=== PATIENT | female | born 1930 | race Caucasian/White ===

== ENCOUNTER → 2017-01-31 | Outpatient (CLI) | payer OTHER, MEDICAID ==
[2016-09-02 12:00] VITALS: BP 132/61
--- NOTE | 2017-01-31 12:20 | RAD ---
HISTORY: Leukocytosis Study: Single view of the chest. Comparison: 08/30/2016 Findings: Mild cardiomegaly. No focal consolidations, pleural effusions or pneumothorax. Osseous structures de monstrate no acute abnormality. IMPRESSION: 1. No acute cardiopulmonary process. Reported By:
== END | disposition home or self-care (01) ==
LOC: RAD 11:43
PROVIDERS: ATTEND Internal Medicine
DX: D72.828 Other elevated white blood cell count (principal)
CPT/HCPCS: 71010

== ENCOUNTER 2017-07-26 13:04 | Inpatient (IN) | payer OTHER, MEDICAID ==
[2017-07-26] MEDS ORDERED: NS 1000 ML 1,000 ML ONE (13:40)
[2017-07-26] MEDS ORDERED: NS 1000 ML 1,000 ML IV ONE (13:43)
--- NOTE | 2017-07-26 13:48 | DR.GENAD ---
HPI - PCP Primary Care Physician: RAMEZ - HPI Comment HPI Comment: SHE WAS NOT RESPONDING TO STAFF IN THE DINING ROOM. STERNAL [place], SLIGHT RESPONSE. BP CHECK AND LOW. SLEEPY IN ED. BP NOT LOW LAYING DOWN. NO FEVER. A FIB WITH CONTROL RATE ON CARDIAC MONITOE. - Complaint/Symptoms Chief Complaint Doctors Comments: HERE FROM [facility] FOR [facility]MS AND HYPOTENSION. Chief Complaint:: DECREASED RESPONSIVENESS/HYPOTENSION Self Treatment fo Chief Complaint: CHARGE NURSE ZHANNA RN, STATES PT HAD DECREASED RESPONSIVENESS WHILE IN DINING ROOM AT [facility]. STATES THEY PERFORMED STERNAL RUB ON PT AND SHE WAS SLIGHTLY AROUSED WITH EYES OPEN. ALSO STATES PT HAS A LOW BP AND DECRASED HR. - Nurses notes reviewed Nurses Notes Review: Yes - Source History Provided: Parent, [facility] - Mode of Arrival Mode of Arrival: Wheelchair - Timing Onset of Chief Complaint: 07/26/17 Came on: Suddenly - Duration Duration: Since Onset Duration: Hours - Severity Severity: Moderate PMH - PMH Past Medical History: Yes Past Medical History: Alzheimers, Anemia, Angina, Anxiety, Arthritis, CHF, COPD , Coronary Artery Disease, Dementia, Depression, Diabetes, Dyslipidemia, GERD, Hypertension Past Surgical History: Yes Surgical History: Other - Family History History of Family Medical Conditions: Yes Family Medical History: Diabetes Mellitus, Coronary Artery Disease, Heart Failure - Social History Does patient currently use any type of tobacco product: No Have you used tobacco products in the last 12 months: No Type of Tobacco Use: None Does any household member use tobacco: No Alcohol Use: None Do you use any recreational Drugs:: No Lives With: Other Lives Where: [facility] - infectious screening In the last 2 months have you had wt loss of >10#?: NO Have you had fever, night sweats or hemotysis?: No Have you traveled outside the country in the last 6 months?: No Isolation: Standard ROS - Review of Systems Constitutional: Weakness, Fatigue. negative: Chills, Fever Eyes: negative: Eye Pain, Discharge ENTM: negative: Ear Pain, Nose Discharge, Nose Congestion, Throat Pain Respiratoy: Short of Breath, Wheezing. negative: Productive Cough, Non- Productive Cough, Hemoptysis Cardiovascular: Other (IRREGULAR HEART BEAT.) Gastrointestinal/Abdominal: negative: Diarrhea, Nausea, Vomiting Genitourinary: negative: Hematuria Neurological: Weakness Musculoskeletal: Back Pain Integumentary: No Symptoms Reported Hematologic/Lymphatic: Easy Bruising Endocrine: No Symptoms Reported All Other Systems: Reviewed and Negative PE - Vital Signs Vitals: Temperature 98.0 F Pulse Rate [Apical] 63 Pulse Rate 60 Respiratory Rate 16 Blood Pressure [Left Arm] 125/60 Blood Pressure [Right Calf] 135/75 Blood Pressure [Right Arm] 132/61 Blood Pressure 117/54 O2 Sat by Pulse Oximetry 99 - General Limitations: Altered Mental Status General Appearance: Other (SLEEPY IN ED INITIALLY) - Head Head Exam: Atraumatic - Eyes Eye exam: PERRL - ENT ENT Exam: Normal External Ear Exam External Ear Exam: Normal External Inspection TM/Canal Exam: Bilateral Normal Nose Exam: Normal Nose Exam Mouth Exam: Normal Inspection Throat Exam: Normal Inspection - Neck Neck Exam: Normal Inspection - Chest Chest Inspection: Symmetric Chest Wall Rise - Respiratory Respiratory Exam: Normal Lung Sounds Bilat Respiratory Exam: Bilateral Wheezing, Bilateral Rhonchi, Upper Rhonchi, Lower Wheezing, Lower Rhonchi - Cardiovascular Cardiovascular Exam: Irregular Rhythm - Abdominal Exam Abdominal Exam: Normal Bowel Sounds, Soft. negative: Tenderness - Extremities Extremities Exam: Normal Inspection - Back Back Exam: Normal Inspection - Neurologic Neurological Exam: Alert, Other (SLEEPY IN ED BUT AROUSABLE) - Psychiatric Psychiatric Exam: Flat Affect - Skin Skin Exam: Erythema MDM - Additional Information Additional Information Obtained From: Family - Differential Diagnosis Differential Diagnosis: HYPOTENSION, AMS, HYPERKALEMIA, UTI, A FIB Course - Treatment Treatment: SEE ORDERS. - Consultation Consultation Comments: DISCUSS PATIENT WITH DR. MYRICK. HE WILL ADMIT PATIENT. - Education/Counseling Education/Counseling: Patient, Family, Education Educated On: Diagnosis ROR - Labs Reviewed Laboratory Results Reviewed?: Yes Result Diagrams: 07/27/17 05:16 07/27/17 05:16 Laboratory: WBC 12.0 X10^3/uL (3.6-10.0) H 07/26/17 13:50 RBC 4.62 X10^6/uL (3.5-5.4) 07/26/17 13:50 Hgb 12.7 g/dL (12.0-16.0) 07/26/17 13:50 Hct 38.7 % (36.0-47.0) 07/26/17 13:50 MCV 83.7 fL (80.0-100.0) 07/26/17 13:50 MCH 27.4 pg (27.0-34.0) 07/26/17 13:50 MCHC 32.8 g/dL (33.0-35.0) L 07/26/17 13:50 RDW 14.6 % (11.6-16.5) 07/26/17 13:50 Plt Count 348 X10^3/uL (150.0-450.0) 07/26/17 13:50 MPV 10.3 fL (7.4-11.0) 07/26/17 13:50 Neut % 67.7 % (42.0-75.0) 07/26/17 13:50 Lymph % 17.9 % (21.0-51.0) L 07/26/17 13:50 [place] % 5.4 % (0.0-13.0) 07/26/17 13:50 Eos % 7.9 % (0.9-2.9) H 07/26/17 13:50 Baso % 1.1 % (0.2-1.0) H 07/26/17 13:50 Neut # 8.1 x10^3/uL (2.2-4.8) H 07/26/17 13:50 Lymph # 2.1 X10^3/uL (1.3-2.9) 07/26/17 13:50 [place] # 0.6 x10^3/uL (0.3-0.8) 07/26/17 13:50 Eos # 1.0 x10^3/uL (0.0-0.2) H 07/26/17 13:50 Baso # 0.1 X10^3/uL (0.0-0.1) 07/26/17 13:50 Absolute Nucleated RBC 0.0 /100WBC 07/26/17 13:50 Sodium 139 mmol/L (136-145) 07/26/17 13:50 Corrected Sodium 140 mmol/L (136-145) 07/26/17 13:50 Potassium 5.9 mmol/L (3.5-5.1) H 07/26/17 14:40 Chloride 105 mmol/L (98-107) 07/26/17 13:50 Carbon Dioxide 24.3 mmol/L (21-32) 07/26/17 13:50 BUN 42 mg/dL (7-18) H 07/26/17 13:50 Creatinine 1.49 mg/dL (0.55-1.02) H 07/26/17 13:50 Est GFR (MDRD) Af Amer 42 (>60) L 07/26/17 13:50 Est GFR (MDRD) Non-Af 35 (>60) L 07/26/17 13:50 Glucose 121 mg/dL (65-99) H 07/26/17 13:50 Calcium 9.8 mg/dL (8.5-10.1) 07/26/17 13:50 Corrected Calcium TNP 07/26/17 13:50 Total Bilirubin 0.20 mg/dL (0.2-1.0) 07/26/17 13:50 AST 18 Units/L (15-37) 07/26/17 13:50 ALT 24 Units/L (12-78) 07/26/17 13:50 Alkaline Phosphatase 77 Units/L (46-116) 07/26/17 13:50 Creatine Kinase 40 Units/L (26-192) 07/26/17 13:50 CK-MB (CK-2) < 1.0 ng/mL (0-4.0) 07/26/17 13:50 CK/CKMB % Calc 2.5 % (<4) 07/26/17 13:50 Troponin I < 0.02 ng/mL (0-1.5) 07/26/17 13:50 Total Protein 7.5 g/dL (6.4-8.2) 07/26/17 13:50 Albumin 3.9 g/dL (3.4-5.0) 07/26/17 13:50 Globulin 3.6 g/dL (2.5-4.5) 07/26/17 13:50 Albumin/Globulin Ratio 1.1 Ratio (1.1-2.1) 07/26/17 13:50 Specimen Type Catherized urine 07/26/17 15:10 Urine Color Yellow (YELLOW) 07/26/17 15:10 Urine Appearance Cloudy (CLEAR) 07/26/17 15:10 Urine pH 6.0 (5.0 - 8.0) 07/26/17 15:10 Ur Specific [place] 1.015 (1.000-1.030) 07/26/17 15:10 Urine Protein 2+ (NEGATIVE) 07/26/17 15:10 Urine Glucose (UA) Negative (NEGATIVE) 07/26/17 15:10 Urine Ketones Negative (NEGATIVE) 07/26/17 15:10 Urine Occult Blood 1+ (NEGATIVE) 07/26/17 15:10 Urine Nitrite Negative (NEGATIVE) 07/26/17 15:10 Urine Bilirubin Negative (NEGATIVE) 07/26/17 15:10 Urine Urobilinogen Normal (NORMAL) 07/26/17 15:10 Ur Leukocyte Esterase 3+ (NEGATIVE) 07/26/17 15:10 Urine RBC Rare /HPF (NEGATIVE) 07/26/17 15:10 Urine WBC 60 - 80 /HPF (NEGATIVE) 07/26/17 15:10 Ur Squamous Epith Cells Many /HPF (NEGATIVE) 07/26/17 15:10 Amorphous Sediment 1+ /HPF (NEGATIVE) 07/26/17 15:10 Urine Bacteria Negative /HPF (NEGATIVE) 07/26/17 15:10 Hyaline Casts Few /LPF (NEGATIVE) 07/26/17 15:10 Urine Mucus Moderate /HPF (NEGATIVE) 07/26/17 15:10 Ur Culture Indicated? Yes/culture set up 07/26/17 15:10 - XRAY XRAY Interpreted by: Radiologist XRAY Findings: REPORT DISCUSS WITH PATIENT AND FAMILY. - EKG Rhythm: Afib (EKG NOTED) - Diagnosis Discharge Problem: Hyperkalemia Hypotension Qualifiers: Hypotension type: unspecified hypotension type Qualified Code(s): I95.9 - Hypotension, unspecified UTI (urinary tract infection) Qualifiers: Urinary tract infection type: site unspecified Hematuria presence: without hematuria Qualified Code(s): N39.0 - Urinary tract infection, site not specified Mental status alteration Qualifiers: Altered mental status type: transient alteration of awareness Qualified Code(s) : R40.4 - Transient alteration of awareness A-fib Qualifiers: Atrial fibrillation type: chronic Qualified Code(s): I48.2 - Chronic atrial fibrillation - Discharge Plan Disposition: 09 ADMITTED INPATIENT Condition: Stable - Follow ups/Referrals - Instructions
[2017-07-26 14:14] LABS: BASOPHILS # (AUTO) 0.1 X10^3/uL (0.0-0.1); BASOPHILS % (AUTO) 1.1 % (0.2-1.0); EOSINOPHILS % (AUTO) 7.9 % (0.9-2.9); HEMATOCRIT 38.7 % (36.0-47.0); HEMOGLOBIN 12.7 g/dL (12.0-16.0); LYMPHOCYTES # (AUTO) 2.1 X10^3/uL (1.3-2.9); LYMPHOCYTES % (AUTO) 17.9 % (21.0-51.0); MEAN CORPUSCULAR HEMOGLOBIN 27.4 pg (27.0-34.0); MEAN CORPUSCULAR HGB CONC 32.8 g/dL (33.0-35.0); MEAN CORPUSCULAR VOLUME 83.7 fL (80.0-100.0); MEAN PLATELET VOLUME 10.3 fL (7.4-11.0); MONOCYTES # (AUTO) 0.6 x10^3/uL (0.3-0.8); MONOCYTES % (AUTO) 5.4 % (0.0-13.0); NEUTROPHILS # (AUTO) 8.1 x10^3/uL (2.2-4.8); NEUTROPHILS % (AUTO) 67.7 % (42.0-75.0); PLATELET COUNT 348 X10^3/uL (150.0-450.0); RED BLOOD COUNT 4.62 X10^6/uL (3.5-5.4); RED CELL DISTRIBUTION WIDTH 14.6 % (11.6-16.5)
[2017-07-26] MEDS: NS 1000 ML 1,000 ML IV SCH (14:14)
--- NOTE | 2017-07-26 14:15 | RAD ---
Examination: Portable AP chest History: SOB, diabetes and hypertension Comparison reference 01/31/2017 Findings: Continued normal heart size with arteriosclerotic aorta and stable position of twin lead ca rdiac pacemaker. Interval increase in pulmonary vascular congestion, some of which may be related to the mobile technique. There is no evidence for pneumonia, pulmonary edema or pneumothorax. Impression: Pulmonary vascular congestion, see above. Reported By:
[2017-07-26 14:32] LABS: BLOOD UREA NITROGEN 42 mg/dL (7-18); CALCIUM 9.8 mg/dL (8.5-10.1); CARBON DIOXIDE 24.3 mmol/L (21-32); CHLORIDE 105 mmol/L (98-107); COR NA(FOR HYPERGLY) 140 mmol/L (136-145); CREATININE 1.49 mg/dL (0.55-1.02); SODIUM 139 mmol/L (136-145); eGFR BLACK RACES 42 (>60); eGFR NON BLACK RACES 35 (>60)
[2017-07-26 14:36] LABS: ALANINE AMINOTRANSFERASE 24 Units/L (12-78); ALBUMIN 3.9 g/dL (3.4-5.0); ALKALINE PHOSPHATASE 77 Units/L (46-116); ASPARTATE AMINO TRANSFERASE 18 Units/L (15-37); TOTAL PROTEIN 7.5 g/dL (6.4-8.2)
[2017-07-26 14:46] LABS: CREATINE KINASE 40 Units/L (26-192); CREATINE KINASE MB < 1.0 ng/mL (0-4.0); TROPONIN I < 0.02 ng/mL (0-1.5)
--- NOTE | 2017-07-26 14:49 | CT ---
HISTORY: Decreased responsiveness, hypotension. Study: CT brain without contrast Comparison: Head CT dated 08/25/2016 Technique: Multiple axial images of the brain were obtained from the skull base to the vertex without administra tion of IV contrast. Automated exposure control (AEC) was utilized to adjust the MA and/or kV accordi ng to patient size. Findings: There is no acute intracranial hemorrhage. 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 No mass or mass effect. No abnormal extra-axial flui d collection. There is a generalized prominence of the ventricle sulci cisterns consistent with advanced generalize d volume loss. Green matter -white matter interface is distinct. There is an air-fluid level within the left sphenoid chambers concerning for acute sinusitis in the a ppropriate clinical setting. There is no acute osseous abnormality. IMPRESSION: 1. No acute intracranial process can be identified. Chronic appearing white matter changes are noted as discussed above. If there is clinical concern for acute ischemia, further evaluation with MRI of the brain would be recommended, if not contraindicated. 2. Generalized volume loss.. 3. Air-fluid level within the left sphenoid chamber which is concerning for acute sinusitis in the ap propriate clinical setting. Reported By:
[2017-07-26 14:50] LABS: CKMB % 2.5 % (<4)
[2017-07-26] MEDS ORDERED: HumuLIN R IV ONE (15:09)
[2017-07-26 15:18] LABS: BILIRUBIN,URINE NEGATIVE (NEGATIVE); BLOOD/HEMOGLOBIN,URINE 1+ (NEGATIVE); GLUCOSE, URINE NEGATIVE (NEGATIVE); KETONES,URINE NEGATIVE (NEGATIVE); LEUKOCYTE ESTERASE ,URINE 3+ (NEGATIVE); NITRITES,URINE NEGATIVE (NEGATIVE); PROTEIN,URINE 2+ (NEGATIVE); UROBILINOGEN,URINE NORMAL (NORMAL)
[2017-07-26] MEDS ORDERED: D50W ABBOJECT SYR IV ONE (15:46)
[2017-07-26 15:47] LABS: APPEARANCE,URINE CLOUDY (CLEAR); COLOR,URINE YELLOW (YELLOW); RBC,URINE RARE /HPF (NEGATIVE); SQUAMOUS EPITHELIAL CELL,UR MANY /HPF (NEGATIVE)
[2017-07-26 15:48] LABS: AMORPHOUS SEDIMENT,UR 1+ /HPF (NEGATIVE); BACTERIA,URINE NEGATIVE /HPF (NEGATIVE); HYALINE CASTS, URINE FEW /LPF (NEGATIVE)
[2017-07-26 15:49] LABS: MUCUS,URINE MODERATE /HPF (NEGATIVE)
[2017-07-26] MEDS ORDERED: D50W ABBOJECT SYR ONE (15:54)
[2017-07-26] MEDS ORDERED: ROCEPHIN VIAL 1 GM 1 GM in NS 100 ML IV + SPIKE MINIBAG* 100 ML IV ONE (16:20)
[2017-07-26 17:51] VITALS: BMI 21.1
[2017-07-26] MEDS: SNACK - Diabetic Appropriate PO SCH (21:35)
[2017-07-26 23:07] LABS: CKMB % 2.5 % (<4); CREATINE KINASE 40 Units/L (26-192); CREATINE KINASE MB < 1.0 ng/mL (0-4.0); TROPONIN I < 0.02 ng/mL (0-1.5)
[2017-07-27 06:06] LABS: CKMB % 2.3 % (<4); CREATINE KINASE 43 Units/L (26-192); CREATINE KINASE MB < 1.0 ng/mL (0-4.0); TROPONIN I < 0.02 ng/mL (0-1.5)
[2017-07-27 06:07] LABS: BASOPHILS # (AUTO) 0.1 X10^3/uL (0.0-0.1); EOSINOPHILS % (AUTO) 10.3 % (0.9-2.9); HEMATOCRIT 37.5 % (36.0-47.0); HEMOGLOBIN 12.8 g/dL (12.0-16.0); LYMPHOCYTES # (AUTO) 2.7 X10^3/uL (1.3-2.9); LYMPHOCYTES % (AUTO) 27.5 % (21.0-51.0); MEAN CORPUSCULAR HEMOGLOBIN 28.2 pg (27.0-34.0); MEAN CORPUSCULAR HGB CONC 34.2 g/dL (33.0-35.0); MEAN CORPUSCULAR VOLUME 82.4 fL (80.0-100.0); MEAN PLATELET VOLUME 10.3 fL (7.4-11.0); MONOCYTES # (AUTO) 0.6 x10^3/uL (0.3-0.8); MONOCYTES % (AUTO) 6.3 % (0.0-13.0); NEUTROPHILS # (AUTO) 5.4 x10^3/uL (2.2-4.8); NEUTROPHILS % (AUTO) 54.9 % (42.0-75.0); PLATELET COUNT 299 X10^3/uL (150.0-450.0); RED BLOOD COUNT 4.54 X10^6/uL (3.5-5.4); RED CELL DISTRIBUTION WIDTH 14.2 % (11.6-16.5); WHITE BLOOD COUNT 9.8 X10^3/uL (3.6-10.0)
[2017-07-27 06:24] LABS: ALANINE AMINOTRANSFERASE 23 Units/L (12-78); ALBUMIN 3.7 g/dL (3.4-5.0); ALKALINE PHOSPHATASE 76 Units/L (46-116); ASPARTATE AMINO TRANSFERASE 19 Units/L (15-37); BLOOD UREA NITROGEN 36 mg/dL (7-18); CALCIUM 9.6 mg/dL (8.5-10.1); CHLORIDE 107 mmol/L (98-107); COR NA(FOR HYPERGLY) 142 mmol/L (136-145); CREATININE 1.16 mg/dL (0.55-1.02); MAGNESIUM 2.2 mg/dL (1.7-2.9); SODIUM 142 mmol/L (136-145); TOTAL PROTEIN 7.3 g/dL (6.4-8.2); eGFR BLACK RACES 57 (>60); eGFR NON BLACK RACES 47 (>60)
[2017-07-27] MEDS: NS 1000 ML 1,000 ML IV SCH (06:27)
[2017-07-27] MEDS ORDERED: ELIMITE TOPICAL CREAM TOP NR (14:00)
[2017-07-27] MEDS ORDERED: K-DUR TAB 20 MEQ PO SCH (14:00)
[2017-07-27] MEDS: LIPITOR TAB 10 MG PO SCH (18:14)
[2017-07-27] MEDS: TRICOR TAB 48 MG PO SCH ×2 (18:16→22:21)
[2017-07-27] MEDS: ASPIRIN EC 81 MG PO SCH (18:16)
[2017-07-27] MEDS: CARDIZEM TAB 30 MG PLAIN PO SCH ×2 (18:16→22:22)
[2017-07-27] MEDS: GLUCOPHAGE PO SCH ×2 (18:16→18:20)
[2017-07-27] MEDS: LANOXIN PO SCH (18:17)
[2017-07-27] MEDS: NORCO 5/325 MG TAB PO SCH ×2 (18:18→23:27)
[2017-07-27] MEDS: POTASSIUM CHLORIDE LIQ 20 MEQ UDC PO SCH (18:22)
[2017-07-27] MEDS ORDERED: BENADRYL CAP/TAB 25 MG PO PRN (18:45)
[2017-07-27] MEDS ORDERED: SNACK - Diabetic Appropriate PO SCH (20:00)
[2017-07-27] MEDS ORDERED: KENALOG CREAM EXT SCH (21:00)
[2017-07-27] MEDS: MIRALAX POWDER (1 DOSE 17GM) PO SCH ×2 (21:45→22:19)
[2017-07-27] MEDS: SNACK - Diabetic Appropriate PO SCH (22:11)
[2017-07-27] MEDS: COLACE SYRUP 100 MG UDC PO SCH (22:13)
[2017-07-27] MEDS: HEMOCYTE-PLUS PO SCH (22:14)
[2017-07-27] MEDS: LEVEMIR SC SCH (22:18)
[2017-07-27] MEDS: PEPCID TAB 20 MG PO SCH (22:20)
[2017-07-27] MEDS: TEMOVATE CREAM EXT SCH (22:21)
[2017-07-27] MEDS: ZESTRIL TAB 5 MG PO SCH (22:22)
[2017-07-28] MEDS ORDERED: COLACE CAP 100 MG PO SCH (05:00)
[2017-07-28] MEDS: MILK OF MAGNESIA PO SCH ×2 (05:30→22:29)
[2017-07-28] MEDS: GLUCOPHAGE PO SCH ×2 (06:26→20:09)
[2017-07-28] MEDS: CARDIZEM TAB 30 MG PLAIN PO SCH ×3 (06:26→22:29)
[2017-07-28 06:27] LABS: BASOPHILS # (AUTO) 0.1 X10^3/uL (0.0-0.1); BASOPHILS % (AUTO) 1.1 % (0.2-1.0); EOSINOPHILS # (AUTO) 1.3 x10^3/uL (0.0-0.2); EOSINOPHILS % (AUTO) 14.7 % (0.9-2.9); HEMATOCRIT 36.1 % (36.0-47.0); HEMOGLOBIN 12.2 g/dL (12.0-16.0); LYMPHOCYTES # (AUTO) 3.5 X10^3/uL (1.3-2.9); LYMPHOCYTES % (AUTO) 37.7 % (21.0-51.0); MEAN CORPUSCULAR HEMOGLOBIN 28.4 pg (27.0-34.0); MEAN CORPUSCULAR HGB CONC 33.9 g/dL (33.0-35.0); MEAN CORPUSCULAR VOLUME 83.5 fL (80.0-100.0); MEAN PLATELET VOLUME 10.4 fL (7.4-11.0); MONOCYTES # (AUTO) 0.7 x10^3/uL (0.3-0.8); MONOCYTES % (AUTO) 7.1 % (0.0-13.0); NEUTROPHILS # (AUTO) 3.6 x10^3/uL (2.2-4.8); NEUTROPHILS % (AUTO) 39.4 % (42.0-75.0); PLATELET COUNT 305 X10^3/uL (150.0-450.0); RED BLOOD COUNT 4.32 X10^6/uL (3.5-5.4); WHITE BLOOD COUNT 9.2 X10^3/uL (3.6-10.0)
[2017-07-28 06:28] LABS: ALANINE AMINOTRANSFERASE 22 Units/L (12-78); ALBUMIN 3.4 g/dL (3.4-5.0); ALKALINE PHOSPHATASE 68 Units/L (46-116); ASPARTATE AMINO TRANSFERASE 18 Units/L (15-37); BLOOD UREA NITROGEN 32 mg/dL (7-18); CARBON DIOXIDE 25.5 mmol/L (21-32); CHLORIDE 108 mmol/L (98-107); CREATININE 1.42 mg/dL (0.55-1.02); SODIUM 142 mmol/L (136-145); TOTAL PROTEIN 6.6 g/dL (6.4-8.2); eGFR BLACK RACES 45 (>60); eGFR NON BLACK RACES 37 (>60)
[2017-07-28] MEDS: NORCO 5/325 MG TAB PO SCH ×4 (06:32→22:30)
[2017-07-28] MEDS: NS 1000 ML 1,000 ML IV SCH (07:12)
[2017-07-28] MEDS: HEMOCYTE-PLUS PO SCH ×2 (10:15→22:30)
[2017-07-28] MEDS: LIPITOR TAB 10 MG PO SCH (10:15)
[2017-07-28] MEDS: DEMADEX PO SCH (10:15)
[2017-07-28] MEDS: XARELTO PO SCH (10:15)
[2017-07-28] MEDS: PEPCID TAB 20 MG PO SCH ×2 (10:15→22:31)
[2017-07-28] MEDS: COLACE SYRUP 100 MG UDC PO SCH ×2 (10:16→22:30)
[2017-07-28] MEDS: POTASSIUM CHLORIDE LIQ 20 MEQ UDC PO SCH (10:16)
[2017-07-28] MEDS: ZESTRIL TAB 5 MG PO SCH ×2 (10:16→22:29)
[2017-07-28] MEDS: MIRALAX POWDER (1 DOSE 17GM) PO SCH ×2 (10:18→22:30)
[2017-07-28] MEDS: LEVEMIR SC SCH ×2 (10:18→22:31)
[2017-07-28] MEDS: ASPIRIN EC 81 MG PO SCH (10:19)
[2017-07-28] MEDS: NIZORAL SHAMPOO TOP SCH ×2 (10:19→23:22)
[2017-07-28] MEDS: TEMOVATE CREAM EXT SCH ×2 (10:19→22:32)
[2017-07-28] MEDS: LANOXIN PO SCH (10:20)
[2017-07-28] MEDS: TRICOR TAB 48 MG PO SCH (22:29)
[2017-07-28] MEDS: SNACK - Diabetic Appropriate PO SCH (22:32)
[2017-07-29] MEDS: NS 1000 ML 1,000 ML IV SCH (02:54)
[2017-07-29] MEDS: NORCO 5/325 MG TAB PO SCH (06:09)
[2017-07-29] MEDS: CARDIZEM TAB 30 MG PLAIN PO SCH (06:09)
[2017-07-29 06:29] LABS: BASOPHILS # (AUTO) 0.1 X10^3/uL (0.0-0.1); BASOPHILS % (AUTO) 0.6 % (0.2-1.0); EOSINOPHILS # (AUTO) 1.5 x10^3/uL (0.0-0.2); EOSINOPHILS % (AUTO) 17.1 % (0.9-2.9); HEMATOCRIT 34.9 % (36.0-47.0); LYMPHOCYTES # (AUTO) 3.2 X10^3/uL (1.3-2.9); LYMPHOCYTES % (AUTO) 35.8 % (21.0-51.0); MEAN CORPUSCULAR HEMOGLOBIN 28.7 pg (27.0-34.0); MEAN CORPUSCULAR HGB CONC 34.4 g/dL (33.0-35.0); MEAN CORPUSCULAR VOLUME 83.5 fL (80.0-100.0); MEAN PLATELET VOLUME 10.5 fL (7.4-11.0); MONOCYTES # (AUTO) 0.7 x10^3/uL (0.3-0.8); MONOCYTES % (AUTO) 7.4 % (0.0-13.0); NEUTROPHILS # (AUTO) 3.5 x10^3/uL (2.2-4.8); NEUTROPHILS % (AUTO) 39.1 % (42.0-75.0); PLATELET COUNT 286 X10^3/uL (150.0-450.0); RED BLOOD COUNT 4.18 X10^6/uL (3.5-5.4); RED CELL DISTRIBUTION WIDTH 13.9 % (11.6-16.5); WHITE BLOOD COUNT 8.8 X10^3/uL (3.6-10.0)
[2017-07-29 06:56] LABS: ALBUMIN 3.3 g/dL (3.4-5.0); CALCIUM 9.4 mg/dL (8.5-10.1); CARBON DIOXIDE 24.1 mmol/L (21-32); CREATININE 1.11 mg/dL (0.55-1.02); TOTAL PROTEIN 6.5 g/dL (6.4-8.2)
[2017-07-29] MEDS: GLUCOPHAGE PO SCH (09:12)
[2017-07-29] MEDS: ASPIRIN EC 81 MG PO SCH (09:12)
[2017-07-29] MEDS: COLACE SYRUP 100 MG UDC PO SCH (09:12)
[2017-07-29] MEDS: PEPCID TAB 20 MG PO SCH (09:13)
[2017-07-29] MEDS: DEMADEX PO SCH (09:13)
[2017-07-29] MEDS: HEMOCYTE-PLUS PO SCH (09:13)
[2017-07-29] MEDS: LANOXIN PO SCH (09:15)
[2017-07-29] MEDS: LEVEMIR SC SCH (09:15)
[2017-07-29] MEDS: POTASSIUM CHLORIDE LIQ 20 MEQ UDC PO SCH (09:19)
[2017-07-29] MEDS: LIPITOR TAB 10 MG PO SCH (09:19)
[2017-07-29] MEDS: MIRALAX POWDER (1 DOSE 17GM) PO SCH (09:19)
[2017-07-29] MEDS: ZESTRIL TAB 5 MG PO SCH (09:20)
[2017-07-29] MEDS: TEMOVATE CREAM EXT SCH (09:20)
[2017-07-29] MEDS: XARELTO PO SCH (09:20)
[2017-07-29 12:22] VITALS: BP 124/62
[2017-07-30] MEDS ORDERED: DIFLUCAN PO ONE (14:00)
== END 2017-07-29 12:25 | DRG 315 ==
LOC: ER 14:41 → MED/SURG 16:21
PROVIDERS: ADMIT Internal Medicine; ATTEND Internal Medicine
DX: I95.89 Other hypotension (principal); R41.82 Altered mental status, unspecified; N39.0 Urinary tract infection, site not specified; I48.2 Chronic atrial fibrillation; E87.5 Hyperkalemia; J44.9 Chronic obstructive pulmonary disease, unspecified; I25.10 Atherosclerotic heart disease of native coronary artery without angina pectoris; E11.65 Type 2 diabetes mellitus with hyperglycemia; E78.2 Mixed hyperlipidemia; K21.9 Gastro-esophageal reflux disease without esophagitis; I10 Essential (primary) hypertension; R06.02 Shortness of breath; R94.31 Abnormal electrocardiogram [ECG] [EKG]; E86.0 Dehydration; B86 Scabies
CPT/HCPCS: 36415; 70450; 71010; 80053; 80162; 81001; 82550; 82553; 83735; 84132; 84484; 85025; 87086; 93005; 93010; 94760; 96365; 96367; 96374; 96375; 99221; 99231; 99284; A4216; A4222; 1956; J3490

== ENCOUNTER 2017-09-13 13:17 | Emergency (ER) | payer OTHER, MEDICAID ==
[2017-09-13] MEDS ORDERED: NS 1000 ML 1,000 ML IV ONE (13:30)
[2017-09-13] MEDS ORDERED: ZOFRAN INJ 4 MG VIAL IVP ONE (13:30)
--- NOTE | 2017-09-13 13:30 | DR.GENAD ---
HPI - HPI Comment HPI Comment: [place] [facility] [place] [facility] [place]IENT WAS NOTED TOHAVE SYNCOPAL EPISODE WHILE IN HER WHEELCHAIR AND HAVE HAD AMS SINCE. BP LOW IN ED. - Complaint/Symptoms Chief Complaint Doctors Comments: AMS, - Nurses notes reviewed Nurses Notes Review: Yes - Source History Provided: Patient - Mode of Arrival Mode of Arrival: Stretcher - Timing Came on: Suddenly - Duration Duration: Constant Duration: Days - Severity Severity: Moderate PMH - PMH Past Medical History: Alzheimers, Anemia, Angina, Anxiety, Arthritis, CHF, COPD , Coronary Artery Disease, Dementia, Depression, Diabetes, Dyslipidemia, GERD, Hypertension Past Surgical History: Yes Surgical History: Other - Family History Family Medical History: Diabetes Mellitus, Coronary Artery Disease, Heart Failure - Social History Do you use any recreational Drugs:: No ROS - Review of Systems Constitutional: Weakness, Fatigue. negative: Chills, Fever Eyes: No Symptoms Reported. negative: Eye Pain, Discharge ENTM: No Symptoms Reported. negative: Ear Pain, Nose Discharge, Nose Congestion Respiratoy: Short of Breath. negative: Productive Cough, Non-Productive Cough, Wheezing, Hemoptysis Cardiovascular: Chest Pain. negative: Edema Gastrointestinal/Abdominal: negative: Diarrhea, Nausea, Vomiting Genitourinary: negative: Hematuria Neurological: Weakness Musculoskeletal: Muscle Pain Integumentary: No Symptoms Reported Hematologic/Lymphatic: No Symptoms Reported Endocrine: No Symptoms Reported All Other Systems: Reviewed and Negative PE - Vital Signs Vitals: Temperature 98.9 F Pulse Rate [Left Brachial] 62 Pulse Rate 60 Respiratory Rate 16 Blood Pressure [Left Arm] 144/61 Blood Pressure [Right Calf] 135/75 Blood Pressure [Right Arm] 144/60 Blood Pressure 63/36 O2 Sat by Pulse Oximetry 99 - General Limitations: No Limitations General Appearance: Other (SLEEPY BUT AROUSABLE) - Head Head Exam: Normal Inspection - Eyes Eye exam: Normal Appearance, PERRL. negative: Scleral Icterus, Conjunctival Injection - ENT ENT Exam: Normal External Ear Exam External Ear Exam: Normal External Inspection TM/Canal Exam: Bilateral Normal Nose Exam: Normal Nose Exam Mouth Exam: Normal Inspection Throat Exam: Normal Inspection - Neck Neck Exam: Trachea Midline - Chest Chest Inspection: Symmetric Chest Wall Rise - Respiratory Respiratory Exam: Normal Lung Sounds Bilat Respiratory Exam: Bilateral Clear to Auscultation - Cardiovascular Cardiovascular Exam: Regular Rate, Normal Rhythm, Normal Heart Sounds - Abdominal Exam Abdominal Exam: Normal Bowel Sounds, Soft. negative: Tenderness - Extremities Extremities Exam: Normal Inspection. negative: Calf Tenderness - Back Back Exam: Normal Inspection - Neurologic Neurological Exam: Alert, Oriented X3 - Psychiatric Psychiatric Exam: Normal Affect, Normal Mood - Skin Skin Exam: Normal Color MDM - Differential Diagnosis Differential Diagnosis: HYPOTENSION, SYNCOPAL EPISODE. Course - Treatment Treatment: SEE ORDERS. IV FLUID IN ED. PRESURE IMPROVING. PATIENT MORE RESPONSIVE. - Education/Counseling Education/Counseling: Patient, Education Educated On: Diagnosis ROR - Labs Reviewed Laboratory Results Reviewed?: Yes Result Diagrams: 09/13/17 13:48 09/13/17 13:48 Laboratory: WBC 11.4 X10^3/uL (3.6-10.0) H 09/13/17 13:48 RBC 4.16 X10^6/uL (3.5-5.4) 09/13/17 13:48 Hgb 11.8 g/dL (12.0-16.0) L 09/13/17 13:48 Hct 34.7 % (36.0-47.0) L 09/13/17 13:48 MCV 83.3 fL (80.0-100.0) 09/13/17 13:48 MCH 28.4 pg (27.0-34.0) 09/13/17 13:48 MCHC 34.1 g/dL (33.0-35.0) 09/13/17 13:48 RDW 13.9 % (11.6-16.5) 09/13/17 13:48 Plt Count 350 X10^3/uL (150.0-450.0) 09/13/17 13:48 MPV 10.1 fL (7.4-11.0) 09/13/17 13:48 Neut % 44.7 % (42.0-75.0) 09/13/17 13:48 Lymph % 38.2 % (21.0-51.0) 09/13/17 13:48 [place] % 6.4 % (0.0-13.0) 09/13/17 13:48 Eos % 9.9 % (0.9-2.9) H 09/13/17 13:48 Baso % 0.8 % (0.2-1.0) 09/13/17 13:48 Neut # 5.1 x10^3/uL (2.2-4.8) H 09/13/17 13:48 Lymph # 4.4 X10^3/uL (1.3-2.9) H 09/13/17 13:48 [place] # 0.7 x10^3/uL (0.3-0.8) 09/13/17 13:48 Eos # 1.1 x10^3/uL (0.0-0.2) H 09/13/17 13:48 Baso # 0.1 X10^3/uL (0.0-0.1) 09/13/17 13:48 Absolute Nucleated RBC 0.1 /100WBC 09/13/17 13:48 Sodium 140 mmol/L (136-145) 09/13/17 13:48 Corrected Sodium 143 mmol/L (136-145) 09/13/17 13:48 Potassium 5.4 mmol/L (3.5-5.1) H 09/13/17 13:48 Chloride 107 mmol/L (98-107) 09/13/17 13:48 Carbon Dioxide 23.6 mmol/L (21-32) 09/13/17 13:48 BUN 36 mg/dL (7-18) H 09/13/17 13:48 Creatinine 1.25 mg/dL (0.55-1.02) H 09/13/17 13:48 Est GFR (MDRD) Af Amer 52 (>60) L 09/13/17 13:48 Est GFR (MDRD) Non-Af 43 (>60) L 09/13/17 13:48 Glucose 241 mg/dL (65-99) H 09/13/17 13:48 Lactic Acid 1.3 mmol/L (0.4-2.0) 09/13/17 13:48 Calcium 9.6 mg/dL (8.5-10.1) 09/13/17 13:48 Corrected Calcium TNP 09/13/17 13:48 Total Bilirubin 0.20 mg/dL (0.2-1.0) 09/13/17 13:48 AST 19 Units/L (15-37) 09/13/17 13:48 ALT 20 Units/L (12-78) 09/13/17 13:48 Alkaline Phosphatase 63 Units/L (46-116) 09/13/17 13:48 Creatine Kinase 35 Units/L (26-192) 09/13/17 13:48 CK-MB (CK-2) < 1.0 ng/mL (0-4.0) 09/13/17 13:48 CK/CKMB % Calc 2.9 % (<4) 09/13/17 13:48 Troponin I < 0.02 ng/mL (0-1.5) 09/13/17 13:48 Total Protein 7.2 g/dL (6.4-8.2) 09/13/17 13:48 Albumin 3.6 g/dL (3.4-5.0) 09/13/17 13:48 Globulin 3.6 g/dL (2.5-4.5) 09/13/17 13:48 Albumin/Globulin Ratio 1.0 Ratio (1.1-2.1) L 09/13/17 13:48 Specimen Type Catherized urine 09/13/17 16:02 Urine Color Yellow (YELLOW) 09/13/17 16:02 Urine Appearance Slightly hazy (CLEAR) 09/13/17 16:02 Urine pH 5.0 (5.0 - 8.0) 09/13/17 16:02 Ur Specific [place] 1.015 (1.000-1.030) 09/13/17 16:02 Urine Protein 1+ (NEGATIVE) 09/13/17 16:02 Urine Glucose (UA) Negative (NEGATIVE) 09/13/17 16:02 Urine Ketones Negative (NEGATIVE) 09/13/17 16:02 Urine Occult Blood 1+ (NEGATIVE) 09/13/17 16:02 Urine Nitrite Negative (NEGATIVE) 09/13/17 16:02 Urine Bilirubin Negative (NEGATIVE) 09/13/17 16:02 Urine Urobilinogen Normal (NORMAL) 09/13/17 16:02 Ur Leukocyte Esterase 2+ (NEGATIVE) 09/13/17 16:02 Urine RBC 0-3 /HPF (NEGATIVE) 09/13/17 16:02 Urine WBC 5-10 /HPF (NEGATIVE) 09/13/17 16:02 Ur Squamous Epith Cells Few /HPF (NEGATIVE) 09/13/17 16:02 Amorphous Sediment 1+ /HPF (NEGATIVE) 09/13/17 16:02 Urine Bacteria Trace /HPF (NEGATIVE) 09/13/17 16:02 Fine Granular Casts Few /LPF (NEGATIVE) 09/13/17 16:02 Urine Mucus Few /HPF (NEGATIVE) 09/13/17 16:02 Ur Culture Indicated? Yes/culture set up 09/13/17 16:02 Acetone, Semi-Quant Negative (NEGATIVE) 09/13/17 13:48 - XRAY XRAY Interpreted by: Radiologist XRAY Findings: REPORT NOTED - EKG Rhythm: Paced (EKG NOTED) - Diagnosis Discharge Problem: Hypotension Qualifiers: Hypotension type: unspecified hypotension type Qualified Code(s): I95.9 - Hypotension, unspecified Episode of syncope Qualifiers: Syncope type: unspecified Qualified Code(s): R55 - Syncope and collapse Altered mental state Qualifiers: Altered mental status type: transient alteration of awareness Qualified Code(s) : R40.4 - Transient alteration of awareness - Discharge Plan Disposition: 01 HOME, SELF-CARE Condition: Stable Prescriptions: Levofloxacin [LEVAQUIN TAB 500 MG *] 500 mg PO DAILY #7 tab - Follow ups/Referrals Follow ups/Referrals: STALIN THOMASON [Primary Care Provider] - 3 days - Instructions Instructions: Concussion, Adult, [id number], Hypotension, [id number], Urinary Tract Infection, Adult, [id number] Additional Instructions: RETURN TO ED IF WORSE. HOLD DILTIAZINE AND LISINOPRIL FOR 24 HRS. [employer].
[2017-09-13] MEDS ORDERED: NS 1000 ML 1,000 ML ONE (13:31)
[2017-09-13] MEDS ORDERED: ZOFRAN INJ 4 MG VIAL ONE (13:31)
[2017-09-13 13:44] VITALS: BMI 25.8
[2017-09-13 14:01] LABS: BASOPHILS # (AUTO) 0.1 X10^3/uL (0.0-0.1); BASOPHILS % (AUTO) 0.8 % (0.2-1.0); EOSINOPHILS # (AUTO) 1.1 x10^3/uL (0.0-0.2); EOSINOPHILS % (AUTO) 9.9 % (0.9-2.9); HEMATOCRIT 34.7 % (36.0-47.0); HEMOGLOBIN 11.8 g/dL (12.0-16.0); LYMPHOCYTES # (AUTO) 4.4 X10^3/uL (1.3-2.9); LYMPHOCYTES % (AUTO) 38.2 % (21.0-51.0); MEAN CORPUSCULAR HEMOGLOBIN 28.4 pg (27.0-34.0); MEAN CORPUSCULAR HGB CONC 34.1 g/dL (33.0-35.0); MEAN CORPUSCULAR VOLUME 83.3 fL (80.0-100.0); MEAN PLATELET VOLUME 10.1 fL (7.4-11.0); MONOCYTES # (AUTO) 0.7 x10^3/uL (0.3-0.8); MONOCYTES % (AUTO) 6.4 % (0.0-13.0); NEUTROPHILS # (AUTO) 5.1 x10^3/uL (2.2-4.8); NEUTROPHILS % (AUTO) 44.7 % (42.0-75.0); PLATELET COUNT 350 X10^3/uL (150.0-450.0); RED BLOOD COUNT 4.16 X10^6/uL (3.5-5.4); RED CELL DISTRIBUTION WIDTH 13.9 % (11.6-16.5); WHITE BLOOD COUNT 11.4 X10^3/uL (3.6-10.0)
--- NOTE | 2017-09-13 14:19 | RAD ---
Examination: Portable AP chest History: Hypoxia and low blood pressure Comparison 07/26/2017 Findings: Continued upper normal heart size with stable position of pacemaker. The lungs and pleural spaces are clear. Impression: No acute chest findings. Reported By:
[2017-09-13 14:21] LABS: BLOOD UREA NITROGEN 36 mg/dL (7-18); CALCIUM 9.6 mg/dL (8.5-10.1); CARBON DIOXIDE 23.6 mmol/L (21-32); CHLORIDE 107 mmol/L (98-107); COR NA(FOR HYPERGLY) 143 mmol/L (136-145); CREATININE 1.25 mg/dL (0.55-1.02); SODIUM 140 mmol/L (136-145); TROPONIN I < 0.02 ng/mL (0-1.5); eGFR BLACK RACES 52 (>60); eGFR NON BLACK RACES 43 (>60)
[2017-09-13 14:40] LABS: ALANINE AMINOTRANSFERASE 20 Units/L (12-78); ALBUMIN 3.6 g/dL (3.4-5.0); ALKALINE PHOSPHATASE 63 Units/L (46-116); ASPARTATE AMINO TRANSFERASE 19 Units/L (15-37); CREATINE KINASE 35 Units/L (26-192); CREATINE KINASE MB < 1.0 ng/mL (0-4.0); TOTAL PROTEIN 7.2 g/dL (6.4-8.2)
--- NOTE | 2017-09-13 14:40 | CT ---
HISTORY: Altered mental status Study: CT head without contrast Comparison: 07/26/2017 Technique: Axial noncontrast images with coronal and sagittal reformats. Dose reduction procedures we re used with mA/kv adjusted for body size. Findings: The ventricles, cortical sulci, and other CSF spaces are enlarged consistent with generalized atrophy . There is decreased attenuation in the periventricular white matter suggestive of small vessel vascu lar disease. There is no definite evidence for recent or remote CVA, hemorrhage, mass lesion, or extr a-axial fluid collection. The calvarium is intact. The visualized sinuses are clear. IMPRESSION: No acute intracranial abnormality Age-related atrophy Diffuse small vessel vascular disease Reported By:
[2017-09-13 14:51] LABS: CKMB % 2.9 % (<4)
[2017-09-13 14:53] LABS: LACTIC ACID 1.3 mmol/L (0.4-2.0)
[2017-09-13 16:14] LABS: BILIRUBIN,URINE NEGATIVE (NEGATIVE); BLOOD/HEMOGLOBIN,URINE 1+ (NEGATIVE); GLUCOSE, URINE NEGATIVE (NEGATIVE); KETONES,URINE NEGATIVE (NEGATIVE); LEUKOCYTE ESTERASE ,URINE 2+ (NEGATIVE); NITRITES,URINE NEGATIVE (NEGATIVE); PROTEIN,URINE 1+ (NEGATIVE); UROBILINOGEN,URINE NORMAL (NORMAL)
[2017-09-13 16:29] LABS: COLOR,URINE YELLOW (YELLOW)
[2017-09-13 16:30] LABS: AMORPHOUS SEDIMENT,UR 1+ /HPF (NEGATIVE); APPEARANCE,URINE SLIGHTLY HAZY (CLEAR); BACTERIA,URINE TRACE /HPF (NEGATIVE); FINE GRANULAR CASTS,URINE FEW /LPF (NEGATIVE); RBC,URINE 0-3 /HPF (NEGATIVE); SQUAMOUS EPITHELIAL CELL,UR FEW /HPF (NEGATIVE)
[2017-09-13 16:31] LABS: MUCUS,URINE FEW /HPF (NEGATIVE)
[2017-09-13] MEDS ORDERED: ROCEPHIN 1 GM IV PREMIX 1 GM/50 ML IV.SOLN. IV ONE (16:55)
[2017-09-13] MEDS ORDERED: ROCEPHIN VIAL 1 GM ONE (17:12)
[2017-09-13 17:48] VITALS: BP 144/61
== END 2017-09-13 18:04 | disposition home or self-care (01) ==
LOC: ER 13:32
DX: R40.4 Transient alteration of awareness (principal); R55 Syncope and collapse; I95.9 Hypotension, unspecified; G31.9 Degenerative disease of nervous system, unspecified
CPT/HCPCS: 36415; 70450; 71045; 80053; 81001; 82009; 82550; 82553; 83605; 84484; 85025; 87040; 87086; 93005; 93010; 96365; 96367; 96374; 96375; 99283; A4222; J0696; J2405

== ENCOUNTER 2017-09-25 12:27 | Observation (INO) | payer OTHER, MEDICAID ==
[2017-09-25] MEDS ORDERED: NS 1000 ML 1,000 ML IV ONE ×2 (12:47→13:03)
[2017-09-25] MEDS ORDERED: NS 1000 ML 1,000 ML ONE (12:52)
[2017-09-25] MEDS ORDERED: DOPAMINE IV PREMIX 400 MG/250 ML 0 MG/0 ML BAG IV ONE (12:52)
[2017-09-25] MEDS ORDERED: PROVENTIL NEB TX 0.083% 2.5MG/ 3ML ONE ×2 (12:53)
[2017-09-25] MEDS ORDERED: PROVENTIL NEB TX 0.083% 2.5MG/ 3ML NEB ONE (12:53)
[2017-09-25] MEDS ORDERED: ACCUNEB 1.25 MG NEBULE NEB ONE (12:55)
[2017-09-25] MEDS ORDERED: DOPAMINE IV PREMIX 400 MG/250 ML 400 MG/250 ML BAG IV ONE (12:58)
--- NOTE | 2017-09-25 13:00 | DR.GENAD ---
HPI - PCP Primary Care Physician: NIR DONG - Complaint/Symptoms Chief Complaint Doctors Comments: Patient referred from the residential due to hypotensive episode, unresponsive. BP 60/50. and bradycardic. Chief Complaint:: [facility] STAFF CALLED AND PT IS BRADYCARDIC HR IN THE 50'S AND B/ P 60/50 AND THAT SHE IS DIAPHORETIC PT HAS HX OF SICK SINUS SYNDROME AND THAT PT WAS GIVEN HER AM MEDS WHICH INCLUDED BP MEDS, DIGOXIN, AND CARDIAZEM.. Self Treatment fo Chief Complaint: UPON ARRIVAL PT IS DIAPHORETIC AND PT PLACED ON 3 LEAD EKG , 60 BMP AND NOTED PT IS ALERT AND SOME WHAT AGGRESSIVE ACTING .. - Source History Provided: Residential - Mode of Arrival Mode of Arrival: Stretcher - Timing Onset of Chief Complaint: 09/25/17 PMH - PMH Past Medical History: Yes Past Medical History: Alzheimers, Anemia, Angina, Anxiety, Arthritis, CHF, COPD , Coronary Artery Disease, Dementia, Depression, Diabetes, Dyslipidemia, GERD, Hypertension Past Medical History Comment: SICK SINUS SYNDROME. Past Surgical History: Yes Surgical History: Other - Family History History of Family Medical Conditions: Yes Family Medical History: Diabetes Mellitus, Coronary Artery Disease, Heart Failure - Social History Does patient currently use any type of tobacco product: No Have you used tobacco products in the last 12 months: No Type of Tobacco Use: None Does any household member use tobacco: No Alcohol Use: None Do you use any recreational Drugs:: No Lives Where: Residential - infectious screening In the last 2 months have you had wt loss of >10#?: NO Have you had fever, night sweats or hemotysis?: No Have you traveled outside the country in the last 6 months?: No Isolation: Standard ROS - Review of Systems Constitutional: No Symptoms Reported Eyes: No Symptoms Reported ENTM: No Symptoms Reported Respiratoy: No Symptoms Reported Cardiovascular: No Symptoms Reported Gastrointestinal/Abdominal: No Symptoms Reported Genitourinary: No Symptoms Reported Neurological: No Symptoms Reported Musculoskeletal: No Symptoms Reported Integumentary: No Symptoms Reported Hematologic/Lymphatic: No Symptoms Reported Endocrine: No Symptoms Reported Psychiatric: No Symptoms Reported All Other Systems: Reviewed and Negative PE - Vital Signs Vitals: Temperature 97.0 F Pulse Rate [Left Brachial] 78 Pulse Rate 60 Respiratory Rate 20 Blood Pressure [Left Arm] 157/70 Blood Pressure [Right Calf] 135/75 Blood Pressure [Right Arm] 124/57 Blood Pressure 93/44 O2 Sat by Pulse Oximetry 100 - General Limitations: No Limitations General Appearance: Alert, In No Apparent Distress - Head Head Exam: Normal Inspection, Atraumatic - Eyes Eye exam: Normal Appearance, PERRL, EOMI - ENT ENT Exam: Normal Exam External Ear Exam: Normal External Inspection TM/Canal Exam: Bilateral Normal Nose Exam: Normal Nose Exam, Sinus Tenderness Mouth Exam: Normal Inspection Throat Exam: Normal Inspection - Neck Neck Exam: Normal Inspection - Chest Chest Inspection: Normal Inspection - Respiratory Respiratory Exam: Normal Lung Sounds Bilat Respiratory Exam: Bilateral Clear to Auscultation - Cardiovascular Cardiovascular Exam: Regular Rate - Abdominal Exam Abdominal Exam: Normal Inspection, Normal Bowel Sounds Abdominal Tenderness: negative: RUQ, RLQ, LUQ, LLQ, Epigastrium, Suprapubic, Diffuse, Mild, Moderate, Severe, Other - Extremities Extremities Exam: Normal Inspection, Full ROM - Back Back Exam: Normal Inspection - Neurologic Neurological Exam: Alert, Oriented X3, CN II-XII Intact - Psychiatric Psychiatric Exam: Normal Affect, Normal Mood - Skin Skin Exam: Warm, Dry, Intact Course - Treatment Treatment: NS - Reevaluation 1st: Improved - Consultation Called: 14:25 (Dr Patel agreed to admit for hydration) ROR - Labs Reviewed Result Diagrams: 09/25/17 12:35 09/25/17 12:35 Laboratory: WBC 10.3 X10^3/uL (3.6-10.0) H 09/25/17 12:35 RBC 4.17 X10^6/uL (3.5-5.4) 09/25/17 12:35 Hgb 11.7 g/dL (12.0-16.0) L 09/25/17 12:35 Hct 34.7 % (36.0-47.0) L 09/25/17 12:35 MCV 83.1 fL (80.0-100.0) 09/25/17 12:35 MCH 28.1 pg (27.0-34.0) 09/25/17 12:35 MCHC 33.8 g/dL (33.0-35.0) 09/25/17 12:35 RDW 14.4 % (11.6-16.5) 09/25/17 12:35 Plt Count 332 X10^3/uL (150.0-450.0) 09/25/17 12:35 MPV 9.9 fL (7.4-11.0) 09/25/17 12:35 Neut % 47.5 % (42.0-75.0) 09/25/17 12:35 Lymph % 37.2 % (21.0-51.0) 09/25/17 12:35 [place] % 5.2 % (0.0-13.0) 09/25/17 12:35 Eos % 9.2 % (0.9-2.9) H 09/25/17 12:35 Baso % 0.9 % (0.2-1.0) 09/25/17 12:35 Neut # 4.9 x10^3/uL (2.2-4.8) H 09/25/17 12:35 Lymph # 3.8 X10^3/uL (1.3-2.9) H 09/25/17 12:35 [place] # 0.5 x10^3/uL (0.3-0.8) 09/25/17 12:35 Eos # 0.9 x10^3/uL (0.0-0.2) H 09/25/17 12:35 Baso # 0.1 X10^3/uL (0.0-0.1) 09/25/17 12:35 Absolute Nucleated RBC 0.0 /100WBC 09/25/17 12:35 Sodium 143 mmol/L (136-145) 09/25/17 12:35 Corrected Sodium TNP 09/25/17 12:35 Potassium 5.0 mmol/L (3.5-5.1) 09/25/17 12:35 Chloride 107 mmol/L (98-107) 09/25/17 12:35 Carbon Dioxide 25.4 mmol/L (21-32) 09/25/17 12:35 BUN 38 mg/dL (7-18) H 09/25/17 12:35 Creatinine 1.22 mg/dL (0.55-1.02) H 09/25/17 12:35 Est GFR (MDRD) Af Amer 53 (>60) L 09/25/17 12:35 Est GFR (MDRD) Non-Af 44 (>60) L 09/25/17 12:35 Glucose 107 mg/dL (65-99) H 09/25/17 12:35 POC Glucose (mg/dL) 93 mg/dL (65-99) 09/25/17 12:39 Calcium 9.1 mg/dL (8.5-10.1) 09/25/17 12:35 Corrected Calcium TNP 09/25/17 12:35 Total Bilirubin 0.30 mg/dL (0.2-1.0) 09/25/17 12:35 AST 16 Units/L (15-37) 09/25/17 12:35 ALT 20 Units/L (12-78) 09/25/17 12:35 Alkaline Phosphatase 58 Units/L (46-116) 09/25/17 12:35 Total Protein 7.1 g/dL (6.4-8.2) 09/25/17 12:35 Albumin 3.6 g/dL (3.4-5.0) 09/25/17 12:35 Globulin 3.5 g/dL (2.5-4.5) 09/25/17 12:35 Albumin/Globulin Ratio 1.0 Ratio (1.1-2.1) L 09/25/17 12:35 Specimen Type Catherized urine 09/25/17 14:02 Urine Color Yellow (YELLOW) 09/25/17 14:02 Urine Appearance Hazy (CLEAR) 09/25/17 14:02 Urine pH 5.0 (5.0 - 8.0) 09/25/17 14:02 Ur Specific [place] 1.010 (1.000-1.030) 09/25/17 14:02 Urine Protein 1+ (NEGATIVE) 09/25/17 14:02 Urine Glucose (UA) Negative (NEGATIVE) 09/25/17 14:02 Urine Ketones Negative (NEGATIVE) 09/25/17 14:02 Urine Occult Blood 3+ (NEGATIVE) 09/25/17 14:02 Urine Nitrite Negative (NEGATIVE) 09/25/17 14:02 Urine Bilirubin Negative (NEGATIVE) 09/25/17 14:02 Urine Urobilinogen Normal (NORMAL) 09/25/17 14:02 Ur Leukocyte Esterase 3+ (NEGATIVE) 09/25/17 14:02 Urine RBC 0-2 /HPF (NONE SEEN) 09/25/17 14:02 Urine WBC 5-10 /HPF (NONE SEEN) 09/25/17 14:02 Ur Squamous Epith Cells Negative /HPF (NEGATIVE) 09/25/17 14:02 Urine Bacteria Trace /HPF (NEGATIVE) 09/25/17 14:02 Ur Culture Indicated? No/not indicated 09/25/17 14:02 Digoxin 1.10 ng/mL (0.9-2) 09/25/17 12:35 - XRAY XRAY Interpreted by: Radiologist (Chest; cardiomegaly w/o CHF) - Diagnosis Discharge Problem: Mild dehydration, Prerenal azotemia, Hypotensive episode - Discharge Plan Condition: Stable - Follow ups/Referrals Follow ups/Referrals: NFD,None [Primary Care Provider] - 3 days - Instructions
[2017-09-25 13:06] LABS: BASOPHILS # (AUTO) 0.1 X10^3/uL (0.0-0.1); BASOPHILS % (AUTO) 0.9 % (0.2-1.0); EOSINOPHILS # (AUTO) 0.9 x10^3/uL (0.0-0.2); EOSINOPHILS % (AUTO) 9.2 % (0.9-2.9); HEMATOCRIT 34.7 % (36.0-47.0); HEMOGLOBIN 11.7 g/dL (12.0-16.0); LYMPHOCYTES # (AUTO) 3.8 X10^3/uL (1.3-2.9); LYMPHOCYTES % (AUTO) 37.2 % (21.0-51.0); MEAN CORPUSCULAR HEMOGLOBIN 28.1 pg (27.0-34.0); MEAN CORPUSCULAR HGB CONC 33.8 g/dL (33.0-35.0); MEAN CORPUSCULAR VOLUME 83.1 fL (80.0-100.0); MEAN PLATELET VOLUME 9.9 fL (7.4-11.0); MONOCYTES # (AUTO) 0.5 x10^3/uL (0.3-0.8); MONOCYTES % (AUTO) 5.2 % (0.0-13.0); NEUTROPHILS # (AUTO) 4.9 x10^3/uL (2.2-4.8); NEUTROPHILS % (AUTO) 47.5 % (42.0-75.0); PLATELET COUNT 332 X10^3/uL (150.0-450.0); RED BLOOD COUNT 4.17 X10^6/uL (3.5-5.4); RED CELL DISTRIBUTION WIDTH 14.4 % (11.6-16.5); WHITE BLOOD COUNT 10.3 X10^3/uL (3.6-10.0)
[2017-09-25 13:16] LABS: ALANINE AMINOTRANSFERASE 20 Units/L (12-78); ALBUMIN 3.6 g/dL (3.4-5.0); ALKALINE PHOSPHATASE 58 Units/L (46-116); ASPARTATE AMINO TRANSFERASE 16 Units/L (15-37); BLOOD UREA NITROGEN 38 mg/dL (7-18); CALCIUM 9.1 mg/dL (8.5-10.1); CARBON DIOXIDE 25.4 mmol/L (21-32); CHLORIDE 107 mmol/L (98-107); CREATININE 1.22 mg/dL (0.55-1.02); SODIUM 143 mmol/L (136-145); TOTAL PROTEIN 7.1 g/dL (6.4-8.2); eGFR BLACK RACES 53 (>60); eGFR NON BLACK RACES 44 (>60)
--- NOTE | 2017-09-25 13:45 | RAD ---
HISTORY: Syncope, hypotension Study: Chest AP portable Comparison: 09/13/2017 Findings: There is a pacemaker present on the left. The heart is enlarged. No congestive heart failure is noted . The aorta is calcified. The lung avendaño are clear. The bony thorax is unremarkable with the excepti on of bilateral glenohumeral joint degenerative joint disease. IMPRESSION: Cardiomegaly without congestive heart failure No infiltrates Reported By:
--- NOTE | 2017-09-25 13:52 | CT ---
STUDY: CT HEAD WITHOUT CONTRAST HISTORY: Syncope. Hypertensive. COMPARISON: September 13, 2017. TECHNIQUE: Multiple axial images of the head were obtained from the skull base to the vertex without administration of IV contrast. Automated exposure control (AEC) was utilized to adjust the MA and/or kV. Findings: The sulci, cisterns and ventricles are prominent consistent with diffuse volume loss. There are confluent and scattered foci of low attenuation in the periventricular and subcortical whit e matter of both hemispheres. This is a nonspecific finding which likely represents microangiopathic change in a patient of this age. There old lacunar infarcts in the basal ganglia bilaterally. There is no evidence of acute territorial infarction, hemorrhage, mass, mass effect or midline shift. There are no abnormal extra-axial fluid collections. There is no evidence of acute osseous abnormality or significant soft tissue swelling. IMPRESSION: 1. No evidence of acute intracranial abnormality. 2. Nonspecific white matter change and volume loss as described. 3. Old lacunar infarcts in the basal ganglia bilaterally. 4. If there remains strong clinical concern for acute intracranial abnormality, then an MRI examinati on should be considered for further evaluation. Reported By:
[2017-09-25 14:13] LABS: BILIRUBIN,URINE NEGATIVE (NEGATIVE); BLOOD/HEMOGLOBIN,URINE 3+ (NEGATIVE); GLUCOSE, URINE NEGATIVE (NEGATIVE); KETONES,URINE NEGATIVE (NEGATIVE); LEUKOCYTE ESTERASE ,URINE 3+ (NEGATIVE); NITRITES,URINE NEGATIVE (NEGATIVE); PROTEIN,URINE 1+ (NEGATIVE); UROBILINOGEN,URINE NORMAL (NORMAL)
[2017-09-25 14:20] LABS: APPEARANCE,URINE HAZY (CLEAR); BACTERIA,URINE TRACE /HPF (NEGATIVE); COLOR,URINE YELLOW (YELLOW); RBC,URINE 0-2 /HPF (NONE SEEN); SQUAMOUS EPITHELIAL CELL,UR NEGATIVE /HPF (NEGATIVE)
[2017-09-25] MEDS: NS 1000 ML 1,000 ML IV SCH (15:46)
[2017-09-25 16:35] VITALS: BMI 21.9
[2017-09-25] MEDS ORDERED: GLUCOPHAGE ONE (20:28)
[2017-09-25] MEDS: COLACE SYRUP 100 MG UDC PO SCH (20:41)
[2017-09-25] MEDS: VITAMIN C PO SCH (20:42)
[2017-09-25] MEDS: PEPCID TAB 20 MG PO SCH (20:42)
[2017-09-25] MEDS: GLUCOPHAGE PO SCH (20:42)
[2017-09-25] MEDS: XARELTO PO SCH (20:43)
[2017-09-25] MEDS: ZESTRIL TAB 5 MG PO SCH (20:43)
[2017-09-25] MEDS: MIRALAX POWDER (1 DOSE 17GM) PO SCH (20:44)
[2017-09-25] MEDS: KENALOG CREAM EXT SCH (20:45)
[2017-09-25] MEDS: NIZORAL CREAM EXT SCH (20:45)
[2017-09-25] MEDS ORDERED: LEVEMIR SC SCH (21:00)
[2017-09-25] MEDS: AQUAPHOR TOP SCH (23:05)
[2017-09-25] MEDS: NORCO 5/325 MG TAB PO SCH (23:05)
[2017-09-25] MEDS: HEMOCYTE-PLUS PO SCH (23:06)
[2017-09-25] MEDS: ATARAX TAB 25 MG PO SCH (23:06)
[2017-09-25] MEDS: TEMOVATE SOLN TOP SCH (23:07)
[2017-09-25] MEDS: CARDIZEM TAB 30 MG PLAIN PO SCH (23:07)
[2017-09-25] MEDS: TRICOR TAB 48 MG PO SCH (23:08)
[2017-09-26] MEDS: NS 1000 ML 1,000 ML IV SCH ×2 (03:40→20:22)
[2017-09-26] MEDS: CARDIZEM TAB 30 MG PLAIN PO SCH ×3 (05:11→21:25)
[2017-09-26] MEDS: NORCO 5/325 MG TAB PO SCH ×3 (05:11→21:25)
[2017-09-26 06:53] LABS: BASOPHILS # (AUTO) 0.1 X10^3/uL (0.0-0.1); BASOPHILS % (AUTO) 0.8 % (0.2-1.0); EOSINOPHILS # (AUTO) 0.3 x10^3/uL (0.0-0.2); EOSINOPHILS % (AUTO) 2.7 % (0.9-2.9); HEMATOCRIT 29.6 % (36.0-47.0); HEMOGLOBIN 10.2 g/dL (12.0-16.0); LYMPHOCYTES # (AUTO) 1.8 X10^3/uL (1.3-2.9); LYMPHOCYTES % (AUTO) 17.4 % (21.0-51.0); MEAN CORPUSCULAR HEMOGLOBIN 28.4 pg (27.0-34.0); MEAN CORPUSCULAR HGB CONC 34.4 g/dL (33.0-35.0); MEAN CORPUSCULAR VOLUME 82.5 fL (80.0-100.0); MEAN PLATELET VOLUME 9.9 fL (7.4-11.0); MONOCYTES # (AUTO) 0.6 x10^3/uL (0.3-0.8); MONOCYTES % (AUTO) 5.5 % (0.0-13.0); NEUTROPHILS # (AUTO) 7.8 x10^3/uL (2.2-4.8); NEUTROPHILS % (AUTO) 73.6 % (42.0-75.0); PLATELET COUNT 266 X10^3/uL (150.0-450.0); RED BLOOD COUNT 3.59 X10^6/uL (3.5-5.4); RED CELL DISTRIBUTION WIDTH 14.1 % (11.6-16.5); WHITE BLOOD COUNT 10.6 X10^3/uL (3.6-10.0)
[2017-09-26 07:19] LABS: ALANINE AMINOTRANSFERASE 19 Units/L (12-78); ALBUMIN 3.2 g/dL (3.4-5.0); ALKALINE PHOSPHATASE 51 Units/L (46-116); ASPARTATE AMINO TRANSFERASE 10 Units/L (15-37); BLOOD UREA NITROGEN 25 mg/dL (7-18); CARBON DIOXIDE 21.4 mmol/L (21-32); CHLORIDE 112 mmol/L (98-107); COR CA(FOR HYPOALB) 8.6 mg/dL (8.5-10.1); CREATININE 0.84 mg/dL (0.55-1.02); SODIUM 144 mmol/L (136-145); TOTAL PROTEIN 6.2 g/dL (6.4-8.2); eGFR BLACK RACES > 60 (>60); eGFR NON BLACK RACES > 60 (>60)
[2017-09-26] MEDS ORDERED: GLUCOPHAGE ONE ×2 (08:20→19:59)
[2017-09-26] MEDS: MIRALAX POWDER (1 DOSE 17GM) PO SCH ×2 (08:41→21:24)
[2017-09-26] MEDS: LANOXIN PO SCH (08:41)
[2017-09-26] MEDS: DEMADEX PO SCH (08:42)
[2017-09-26] MEDS: GLUCOPHAGE PO SCH ×3 (08:42→21:27)
[2017-09-26] MEDS: ATARAX TAB 25 MG PO SCH ×2 (08:43→21:25)
[2017-09-26] MEDS: LIPITOR TAB 10 MG PO SCH (08:43)
[2017-09-26] MEDS: VITAMIN C PO SCH ×2 (08:43→21:24)
[2017-09-26] MEDS: FLORINEF PO SCH (08:43)
[2017-09-26] MEDS: ASPIRIN EC 81 MG PO SCH (08:43)
[2017-09-26] MEDS: PEPCID TAB 20 MG PO SCH ×2 (08:43→21:25)
[2017-09-26] MEDS: HEMOCYTE-PLUS PO SCH ×2 (08:43→21:29)
[2017-09-26] MEDS: TAB-A-VITE PO SCH (08:43)
[2017-09-26] MEDS: COLACE SYRUP 100 MG UDC PO SCH ×2 (08:45→21:28)
[2017-09-26] MEDS: KENALOG CREAM EXT SCH ×2 (08:46→21:29)
[2017-09-26] MEDS: NIZORAL CREAM EXT SCH ×2 (08:46→21:29)
[2017-09-26] MEDS: ZESTRIL TAB 5 MG PO SCH ×2 (09:00→21:25)
[2017-09-26] MEDS ORDERED: NUT TX GLUC INTOLER LAC FR SOY PO SCH (09:00)
[2017-09-26] MEDS ORDERED: TORSEMIDE 10 MG PO SCH (09:00)
[2017-09-26] MEDS ORDERED: PATIENT'S HOME MEDICATION (Rivaroxaban [Xarelto] 1 TAB) PO SCH (09:00)
[2017-09-26] MEDS: TEMOVATE SOLN TOP SCH ×2 (09:31→21:30)
[2017-09-26] MEDS: ROCEPHIN 1 GM IV PREMIX 1 GM/50 ML IV.SOLN. IV SCH (13:30)
[2017-09-26] MEDS: AQUAPHOR TOP SCH ×2 (13:32→21:28)
[2017-09-26] MEDS: TRICOR TAB 48 MG PO SCH (21:24)
[2017-09-26] MEDS: XARELTO PO SCH (21:24)
[2017-09-27] MEDS: CARDIZEM TAB 30 MG PLAIN PO SCH ×2 (05:34→06:11)
[2017-09-27 06:06] LABS: BASOPHILS # (AUTO) 0.1 X10^3/uL (0.0-0.1); BASOPHILS % (AUTO) 0.8 % (0.2-1.0); EOSINOPHILS # (AUTO) 0.6 x10^3/uL (0.0-0.2); EOSINOPHILS % (AUTO) 5.4 % (0.9-2.9); HEMOGLOBIN 10.5 g/dL (12.0-16.0); LYMPHOCYTES # (AUTO) 3.3 X10^3/uL (1.3-2.9); LYMPHOCYTES % (AUTO) 28.3 % (21.0-51.0); MEAN CORPUSCULAR HEMOGLOBIN 28.1 pg (27.0-34.0); MEAN CORPUSCULAR HGB CONC 33.9 g/dL (33.0-35.0); MEAN CORPUSCULAR VOLUME 83.1 fL (80.0-100.0); MEAN PLATELET VOLUME 9.5 fL (7.4-11.0); MONOCYTES # (AUTO) 0.9 x10^3/uL (0.3-0.8); MONOCYTES % (AUTO) 7.5 % (0.0-13.0); NEUTROPHILS # (AUTO) 6.7 x10^3/uL (2.2-4.8); PLATELET COUNT 248 X10^3/uL (150.0-450.0); RED BLOOD COUNT 3.73 X10^6/uL (3.5-5.4); RED CELL DISTRIBUTION WIDTH 14.3 % (11.6-16.5); WHITE BLOOD COUNT 11.5 X10^3/uL (3.6-10.0)
[2017-09-27] MEDS: NS 1000 ML 1,000 ML IV SCH (06:06)
[2017-09-27] MEDS: NORCO 5/325 MG TAB PO SCH (06:11)
[2017-09-27 06:26] LABS: ALANINE AMINOTRANSFERASE 18 Units/L (12-78); ALBUMIN 3.3 g/dL (3.4-5.0); ALKALINE PHOSPHATASE 55 Units/L (46-116); ASPARTATE AMINO TRANSFERASE 16 Units/L (15-37); BLOOD UREA NITROGEN 17 mg/dL (7-18); CARBON DIOXIDE 22.7 mmol/L (21-32); CHLORIDE 110 mmol/L (98-107); COR CA(FOR HYPOALB) 8.6 mg/dL (8.5-10.1); CREATININE 0.86 mg/dL (0.55-1.02); SODIUM 142 mmol/L (136-145); TOTAL PROTEIN 6.4 g/dL (6.4-8.2); eGFR BLACK RACES > 60 (>60); eGFR NON BLACK RACES > 60 (>60)
[2017-09-27] MEDS ORDERED: GLUCOPHAGE ONE (07:09)
[2017-09-27] MEDS: ASPIRIN EC 81 MG PO SCH (08:36)
[2017-09-27] MEDS: MIRALAX POWDER (1 DOSE 17GM) PO SCH (08:36)
[2017-09-27] MEDS: COLACE SYRUP 100 MG UDC PO SCH (08:36)
[2017-09-27] MEDS: FLORINEF PO SCH (08:36)
[2017-09-27] MEDS: PEPCID TAB 20 MG PO SCH (08:36)
[2017-09-27] MEDS: ATARAX TAB 25 MG PO SCH (08:36)
[2017-09-27] MEDS: VITAMIN C PO SCH (08:36)
[2017-09-27] MEDS: TAB-A-VITE PO SCH (08:37)
[2017-09-27] MEDS: LANOXIN PO SCH (08:37)
[2017-09-27] MEDS: GLUCOPHAGE PO SCH (08:37)
[2017-09-27] MEDS: LIPITOR TAB 10 MG PO SCH (08:37)
[2017-09-27] MEDS: HEMOCYTE-PLUS PO SCH (08:42)
[2017-09-27] MEDS: AQUAPHOR TOP SCH (08:42)
[2017-09-27] MEDS: DEMADEX PO SCH (08:42)
[2017-09-27] MEDS: NIZORAL CREAM EXT SCH (08:43)
[2017-09-27] MEDS: ROCEPHIN 1 GM IV PREMIX 1 GM/50 ML IV.SOLN. IV SCH (08:43)
[2017-09-27] MEDS: KENALOG CREAM EXT SCH (08:43)
[2017-09-27] MEDS: TEMOVATE SOLN TOP SCH (08:44)
[2017-09-27] MEDS: ZESTRIL TAB 5 MG PO SCH (08:44)
[2017-09-27] MEDS ORDERED: DULCOLAX SUPPOSITORY 10 MG RECTAL ONE (09:53)
[2017-09-27] MEDS ORDERED: MILK OF MAGNESIA PO SCH (10:00)
[2017-09-27 12:12] VITALS: BP 146/65
== END 2017-09-27 13:30 ==
LOC: ER 12:33 → OBS 15:05
PROVIDERS: ADMIT Internal Medicine; ATTEND Internal Medicine
DX: E86.0 Dehydration (principal); I95.89 Other hypotension; I25.10 Atherosclerotic heart disease of native coronary artery without angina pectoris; R79.89 Other specified abnormal findings of blood chemistry; E78.2 Mixed hyperlipidemia; K21.9 Gastro-esophageal reflux disease without esophagitis; I10 Essential (primary) hypertension; D64.89 Other specified anemias; R94.4 Abnormal results of kidney function studies; R94.31 Abnormal electrocardiogram [ECG] [EKG]; R25.8 Other abnormal involuntary movements
CPT/HCPCS: 36415; 51702; 70450; 71045; 80053; 80162; 81001; 85025; 93005; 94640; 94760; 96365; 96367; 99284; A4216; A4222; G8981; G8982; G0378; J0696; J1265; J7613

== ENCOUNTER 2018-02-23 18:30 | Observation (INO) ==
[2018-02-23] MEDS ORDERED: HumuLIN R SUBCUT PRN (18:36)
[2018-02-23 22:30] LABS: BILIRUBIN,URINE NEGATIVE (NEGATIVE); BLOOD/HEMOGLOBIN,URINE 1+ (NEGATIVE); GLUCOSE, URINE 3+ (NEGATIVE); KETONES,URINE NEGATIVE (NEGATIVE); LEUKOCYTE ESTERASE ,URINE 2+ (NEGATIVE); NITRITES,URINE NEGATIVE (NEGATIVE); PROTEIN,URINE 1+ (NEGATIVE); UROBILINOGEN,URINE NORMAL (NORMAL)
[2018-02-23 22:40] LABS: APPEARANCE,URINE HAZY (CLEAR); COLOR,URINE YELLOW (YELLOW)
[2018-02-23 22:41] LABS: BACTERIA,URINE NEGATIVE /HPF (NEGATIVE); HYALINE CASTS, URINE RARE /LPF (NEGATIVE); SQUAMOUS EPITHELIAL CELL,UR RARE /HPF (NEGATIVE); YEAST,URINE FEW /HPF (NEGATIVE)
[2018-02-23] MEDS: NS 1000 ML 1,000 ML IV SCH (23:00)
[2018-02-24 05:26] LABS: BASOPHILS % (AUTO) 0.2 % (0.2-1.0); EOSINOPHILS % (AUTO) 0.1 % (0.9-2.9); HEMATOCRIT 35.4 % (36.0-47.0); LYMPHOCYTES % (AUTO) 11.8 % (21.0-51.0); MEAN CORPUSCULAR HEMOGLOBIN 27.6 pg (27.0-34.0); MEAN CORPUSCULAR HGB CONC 33.9 g/dL (33.0-35.0); MEAN CORPUSCULAR VOLUME 81.4 fL (80.0-100.0); MEAN PLATELET VOLUME 9.9 fL (7.4-11.0); MONOCYTES # (AUTO) 1.5 x10^3/uL (0.3-0.8); MONOCYTES % (AUTO) 9.1 % (0.0-13.0); NEUTROPHILS # (AUTO) 13.4 x10^3/uL (2.2-4.8); NEUTROPHILS % (AUTO) 78.8 % (42.0-75.0); PLATELET COUNT 257 X10^3/uL (150.0-450.0); RED BLOOD COUNT 4.35 X10^6/uL (3.5-5.4); RED CELL DISTRIBUTION WIDTH 14.3 % (11.6-16.5)
[2018-02-24 05:35] LABS: ALBUMIN 3.3 g/dL (3.4-5.0); CALCIUM 9.5 mg/dL (8.5-10.1); CARBON DIOXIDE 24.6 mmol/L (21-32); COR CA(FOR HYPOALB) 10.1 mg/dL (8.5-10.1); CREATININE 1.59 mg/dL (0.55-1.02); TOTAL PROTEIN 6.7 g/dL (6.4-8.2)
[2018-02-24] MEDS ORDERED: NORCO 5/325 MG TAB PO PRN (08:44)
[2018-02-24] MEDS ORDERED: AQUAPHOR TOP SCH (09:00)
[2018-02-24] MEDS ORDERED: NUT TX GLUC INTOL LAC FREE SOY PO SCH (09:00)
[2018-02-24] MEDS ORDERED: ROCEPHIN 1 GRAM IV PREMIX 1 G/50 ML IV.SOLN. IV SCH (09:00)
[2018-02-24] MEDS ORDERED: LEVEMIR SC SCH ×2 (09:00→21:00)
[2018-02-24] MEDS ORDERED: [UNRECOGNIZED DRUG - OTHER] PO SCH (09:00)
[2018-02-24] MEDS ORDERED: KENALOG CREAM TOP SCH (09:00)
[2018-02-24] MEDS ORDERED: NIZORAL SHAMPOO TOP SCH (09:00)
[2018-02-24] MEDS ORDERED: PATIENT'S HOME MEDICATION (Cran-Vitc-Mannose-Fos-Bromeln [Uti-Stat] 30 ML) PO SCH (09:00)
[2018-02-24] MEDS ORDERED: NIZORAL CREAM TOP SCH (09:00)
[2018-02-24] MEDS ORDERED: ROCEPHIN VIAL 1 GRAM ONE (09:03)
[2018-02-24] MEDS ORDERED: NS 100 ML IV + SPIKE MINIBAG* 100 ML IV ONE (09:06)
[2018-02-24] MEDS: COLACE SYRUP 100 MG UDC PO SCH ×4 (09:19→21:02)
[2018-02-24] MEDS: ATARAX TAB 25 MG PO SCH ×4 (09:19→21:02)
[2018-02-24] MEDS: FLORINEF PO SCH ×2 (09:20→13:12)
[2018-02-24] MEDS: HEMOCYTE-PLUS PO SCH ×4 (09:20→21:03)
[2018-02-24] MEDS: NS 1000 ML 1,000 ML IV SCH ×4 (09:21→22:56)
[2018-02-24] MEDS: LIPITOR TAB 20 MG PO SCH ×2 (09:22→13:12)
[2018-02-24] MEDS: POTASSIUM CHLORIDE LIQ 20 MEQ UDC PO SCH (09:22)
[2018-02-24] MEDS: PEPCID TAB 20 MG PO SCH ×4 (09:22→21:03)
[2018-02-24] MEDS: MIRALAX POWDER (1 DOSE 17 G) PO SCH ×4 (09:22→21:03)
[2018-02-24] MEDS: VITAMIN C PO SCH ×4 (09:23→21:04)
[2018-02-24] MEDS: TAB-A-VITE PO SCH ×2 (09:23→13:12)
[2018-02-24] MEDS: ZESTRIL TAB 5 MG PO SCH ×4 (09:24→21:04)
[2018-02-24] MEDS: LANOXIN PO SCH (10:06)
--- NOTE | 2018-02-24 11:21 | DR.H&P ---
H&P - History & Physical for Day of: H&P Date: 02/23/18 - Chief Complaint Chief Complaint: NAUSEA, VOMITING, WEAKNESS - History of Present Illness History of Present Illness: IS A 87 YEAR OLD PATIENT OF OURS WHO IS A RESIDENT OF [facility]. SHE WAS A DIRECT ADMISSION FOR COMPLAINTS OF NAUSEA, VOMITING, DIAPHORESIS, AND GENERALIZED WEAKNESS. OUTPATIENT LABS WERE OBTAINED PRIOR TO ADMISSION AND REVEALED: WBC 15.7, POTASSIUM 5.7, BUN 58, CREATININE 1.95, GLUCOSE 356. SHE WAS ADMITTED FOR HYPERGLYCEMIA, ACUTE RENAL FAILURE, AND HYPERKALEMIA. SHE WAS STARTED ON NORMAL SALINE AT 75ML/HR, OTBS ACHS, AND SLIDING SCALE INSULIN. ON ADMISSION, VITLAS WERE 98.5-81-20-94%-181/ 74. A URINALYSIS WAS OBTAINED ON ADMISSION AND REVEALED WBC 20-30, RBC 3-5, LEUKOCYTES 2+, BACTERIA NEGATIVE. STOOLS WERE POSITIVE FOR OCCULT BLOOD. WE ADDED ROCEPHIN 1GM IV DAILY. OTHERWISE, WE PLAN TO FOLLOW UP WITH AM LABS AND CONTINUE TO MONITOR PATIENT. - Past Medical History Past Medical History: Alzheimers, Anemia, Angina, Anxiety, Arthritis, CHF, COPD , Coronary Artery Disease, Dementia, Depression, Diabetes, Dyslipidemia, GERD, Hypertension Additional Medical History: Cataracts, Dementia, Sick Sinus Syndrome, Cardiac Arrhythmia, Constipation, Gastroparesis, UTI's, Muscle Weakness, Neoplasm of Large Intestine, Sleep Apnea, Osteoarthritis - Past Surgical History Surgical History: Abdominal Surgery, Other Additional Surgical History: Pacemaker - Family History Family Medical History: Diabetes Mellitus, Heart Failure - Social History Does patient currently use any type of tobacco product: No Have you used tobacco products in the last 12 months: No Type of Tobacco Use: None Alcohol Use: None Drug Use: None - Medications Home Medications: erythromycin base [From Erythrocin] Adverse Reaction (Verified 07/26/17 14:32) CONTINUE taking the following medications [id number]-[id number] [UTI-Stat] 30 ml PO BID 02/23/18 [History] digoxin 1 tab PO DAILY 02/23/18 [History] risperidone 1 tab PO HS 02/23/18 [History] - Review of Systems Constitutional: Weakness Eyes: No Symptoms Reported ENT: No Symptoms Reported Respiratory: No Symptoms Reported Cardiovascular: No Symptoms Reported Gastrointestinal: Nausea, Vomiting, Abdominal Pain Genitourinary: No Symptoms Reported Musculoskeletal: No Symptoms Reported Skin: No Symptoms Reported Neurological: Weakness - Physical Exam Vital Signs: Temperature 98.8 F Pulse Rate [Left Radial] 92 Pulse Rate [Apical] 88 Respiratory Rate 20 Blood Pressure [Left Arm] 175/70 Blood Pressure [Right Calf] 135/75 Blood Pressure [Right Arm] 181/74 Blood Pressure 146/65 O2 Sat by Pulse Oximetry 93 Oriented: Normal Eyes: Normal Ear: Normal Nose: Normal Throat: Normal Respiratory: Diminished Throughout Cardiovascular: Normal : Normal Auscultation: Bowel Sounds: Normal Palpation: Normal Tenderness: Suprapubic, Mild Musculoskeletal: Normal Psychiatric: Normal Mood Description: Calm Affect: Normal Speech Pattern: Clear - Assessment/Plan (1) Prerenal azotemia Status: Acute (2) UTI (urinary tract infection) Status: Acute (3) Hyperglycemia Status: Acute (4) Hyperkalemia Status: Acute - Allergies Allergies/Adverse Reactions: Allergies Allergy/AdvReac Type Severity Reaction Status Date / Time erythromycin base AdvReac Verified 07/26/17 14:32 [From Erythrocin]
[2018-02-24] MEDS ORDERED: NORCO 5/325 MG TAB PO SCH (14:00)
[2018-02-24] MEDS ORDERED: TYLENOL SUPP 650 MG PR PRN (15:00)
[2018-02-24] MEDS ORDERED: BUTT CREAM (COMPOUND) ONE (15:16)
[2018-02-24] MEDS ORDERED: BUTT CREAM (COMPOUND) TOP PRN (15:17)
[2018-02-24] MEDS: TRICOR TAB 48 MG PO SCH ×2 (20:52→21:00)
[2018-02-25 05:01] LABS: BASOPHILS # (AUTO) 0.1 X10^3/uL (0.0-0.1); BASOPHILS % (AUTO) 0.8 % (0.2-1.0); EOSINOPHILS # (AUTO) 0.1 x10^3/uL (0.0-0.2); EOSINOPHILS % (AUTO) 0.3 % (0.9-2.9); HEMATOCRIT 35.8 % (36.0-47.0); HEMOGLOBIN 11.9 g/dL (12.0-16.0); LYMPHOCYTES # (AUTO) 2.2 X10^3/uL (1.3-2.9); LYMPHOCYTES % (AUTO) 12.9 % (21.0-51.0); MEAN CORPUSCULAR HEMOGLOBIN 27.6 pg (27.0-34.0); MEAN CORPUSCULAR HGB CONC 33.2 g/dL (33.0-35.0); MEAN CORPUSCULAR VOLUME 83.1 fL (80.0-100.0); MEAN PLATELET VOLUME 9.9 fL (7.4-11.0); MONOCYTES # (AUTO) 1.1 x10^3/uL (0.3-0.8); MONOCYTES % (AUTO) 6.2 % (0.0-13.0); NEUTROPHILS # (AUTO) 13.9 x10^3/uL (2.2-4.8); NEUTROPHILS % (AUTO) 79.8 % (42.0-75.0); PLATELET COUNT 218 X10^3/uL (150.0-450.0); RED CELL DISTRIBUTION WIDTH 14.4 % (11.6-16.5); WHITE BLOOD COUNT 17.4 X10^3/uL (3.6-10.0)
[2018-02-25 05:20] LABS: ALANINE AMINOTRANSFERASE 17 Units/L (12-78); ALBUMIN 2.9 g/dL (3.4-5.0); ALKALINE PHOSPHATASE 57 Units/L (46-116); ASPARTATE AMINO TRANSFERASE 14 Units/L (15-37); BLOOD UREA NITROGEN 28 mg/dL (7-18); CALCIUM 8.9 mg/dL (8.5-10.1); CARBON DIOXIDE 24.4 mmol/L (21-32); CHLORIDE 111 mmol/L (98-107); COR CA(FOR HYPOALB) 9.8 mg/dL (8.5-10.1); COR NA(FOR HYPERGLY) 146 mmol/L (136-145); CREATININE 0.97 mg/dL (0.55-1.02); DIGOXIN 0.66 ng/mL (0.9-2); SODIUM 144 mmol/L (136-145); TOTAL PROTEIN 6.4 g/dL (6.4-8.2); eGFR NON BLACK RACES 57 (>60)
[2018-02-25 07:54] VITALS: BMI 23.6
[2018-02-25] MEDS ORDERED: ROCEPHIN VIAL 1 GRAM 1 G in NS 100 ML IV + SPIKE MINIBAG* 100 ML IV SCH (09:00)
[2018-02-25] MEDS: HEMOCYTE-PLUS PO SCH (09:09)
[2018-02-25] MEDS: LIPITOR TAB 20 MG PO SCH (09:09)
[2018-02-25] MEDS: LANOXIN PO SCH (09:10)
[2018-02-25] MEDS: FLORINEF PO SCH (09:10)
[2018-02-25] MEDS: TAB-A-VITE PO SCH (09:10)
[2018-02-25] MEDS: PEPCID TAB 20 MG PO SCH (09:10)
[2018-02-25] MEDS: ZESTRIL TAB 5 MG PO SCH (09:10)
[2018-02-25] MEDS: VITAMIN C PO SCH (09:10)
[2018-02-25] MEDS: COLACE SYRUP 100 MG UDC PO SCH (09:10)
[2018-02-25] MEDS: MIRALAX POWDER (1 DOSE 17 G) PO SCH (09:10)
[2018-02-25] MEDS: ATARAX TAB 25 MG PO SCH (09:10)
[2018-02-25] MEDS: POTASSIUM CHLORIDE LIQ 20 MEQ UDC PO SCH (09:11)
[2018-02-25 10:17] VITALS: BP 173/77
--- NOTE | 2018-03-26 00:25 | DR.CARTERD ---
- Discharge Summary for: Discharge Summary for Date of:: 02/25/18 - Admission Date Date of Admission: 02/23/18 - Admission Diagnoses Admission Diagnosis: (1) Prerenal azotemia (2) UTI (urinary tract infection) (3) Hyperglycemia (4) Hyperkalemia - Discharge Date Discharge Date: 02/25/18 - Discharge Diagnoses Discharge Diagnosis: (1) Prerenal azotemia (2) UTI (urinary tract infection) (3) Hyperglycemia (4) Hyperkalemia - Hospital Course Hospital Course: DAY ONE, MS. WOOD IS A 87 YEAR OLD PATIENT OF OURS WHO IS A RESIDENT OF [facility]. SHE WAS A DIRECT ADMISSION FOR COMPLAINTS OF NAUSEA, VOMITING, DIAPHORESIS, AND GENERALIZED WEAKNESS. OUTPATIENT LABS WERE OBTAINED PRIOR TO ADMISSION AND REVEALED: WBC 15.7, POTASSIUM 5.7, BUN 58, CREATININE 1.95, GLUCOSE 356. SHE WAS ADMITTED FOR HYPERGLYCEMIA, ACUTE RENAL FAILURE, AND HYPERKALEMIA. SHE WAS STARTED ON NORMAL SALINE AT 75ML/HR, OTBS ACHS, AND SLIDING SCALE INSULIN. ON ADMISSION, VITALS WERE 98.5-81-20-94%-181/74. A URINALYSIS WAS OBTAINED ON ADMISSION AND REVEALED WBC 20-30, RBC 3-5, LEUKOCYTES 2+, BACTERIA NEGATIVE. STOOLS WERE POSITIVE FOR OCCULT BLOOD. WE ADDED ROCEPHIN 1GM IV DAILY. WE CONTINUED TO MONITOR. DAY TWO, PATIENT CONTINUED WITH NAUSEA. PATIENT REPORTED LESS VOMITING. PATIENT NOTED WITH POOR APPETITE. WE CONTINUED IV FLUIDS AND IV ANTIEMETICS. DAY THREE, PATIENT REPORTED SHE WAS FEELING BETTER. BUN/CREAT 28/0.97, GFR 57. RENAL FUNCTION GREATLY IMPROVED WITH IV HYDRATION. PATIENT REPORTED NAUSEA AND VOMITING HAD IMPROVED AND PATIENT WAS TOLERATING LIQUID DIET WELL. VITAL SIGNS STABLE. LABS WNL. WE PLANNED FOR DISCHARGE. INSTRUCTIONS FOR MEDICATIONS AND FOLLOW UP WERE DISCUSSED WITH PATIENT AND FAMILY, BOTH VOICED UNDERSTANDING. PATIENT DISCHARGED TO [facility] IN STABLE CONDITION WITH STAFF. - Discharge Medications Discharge Medications: Home Medication List [id number]-FOS-bromeln [UTI-Stat] 30 ml PO BID 02/23/18 [History] digoxin 1 tab PO DAILY 02/23/18 [History] risperidone 1 tab PO HS 02/23/18 [History] levofloxacin in D5W 500 mg IV DAILY #10 ml 02/25/18 [Rx] Prescriptions: levofloxacin in D5W Juan Pablo Patel Home medications hydrocodone-acetaminophen 1 tab PO TID 08/16/13 ketoconazole 1 applic TOP .MON,WED,Fri08/16/13 rivaroxaban [Xarelto] 1 tab PO DAILY 08/16/13 aspirin [Aspir-Low] 81 mg PO DAILY #30 tab 08/17/13 docusate sodium 10 ml PO BID 04/30/16 famotidine [Pepcid] 20 mg PO BID 04/30/16 insulin detemir U-100 [Levemir U-100 Insulin] 10 units SC BID 04/30/16 lisinopril 5 mg PO BID 04/30/16 polyethylene glycol 3350 17 gm PO BID 04/30/16 fenofibrate nanocrystallized 48 mg PO HS #30 tab 05/02/16 potassium chloride 20 meq PO DAILY #1 udc 09/02/16 torsemide [Demadex] 10 mg PO DAILY #30 tab 09/02/16 triamcinolone acetonide 1 applic TOP BID 07/26/17 ascorbic acid (vitamin C) [Vitamin C] 500 mg PO BID 09/25/17 atorvastatin 20 mg PO DAILY 09/25/17 fludrocortisone 1 tab PO DAILY 09/25/17 hydroxyzine HCl 25 mg PO BID 09/25/17 iron-folic acid-mv, min cmb#15 [Hemocyte-Plus] 1 tab PO BID 09/25/17 ketoconazole 1 applic TOP BID 09/25/17 metformin 1 tab PO BID 09/25/17 multivitamin [Tab-A-Phuc] 1 tab PO DAILY 09/25/17 nut.tx.gluc.intol,lac-free,soy [Glucerna Therapeutic Nutrition] 237 ml PO DAILY 09/25/17 white petrolatum [Aquaphor Original] 1 applic TOP BID 09/25/17 - Discharge Disposition Discharge Disposition: WE WILL FOLLOW UP WITH PATIENT IN ONE WEEK AT SKILLED NURSING.
== END 2018-02-25 11:45 ==
LOC: MED/SURG
PROVIDERS: ADMIT Internal Medicine; ATTEND Internal Medicine
DX: N39.0 Urinary tract infection, site not specified; R53.1 Weakness; J44.9 Chronic obstructive pulmonary disease, unspecified; E87.5 Hyperkalemia; R79.89 Other specified abnormal findings of blood chemistry; K21.9 Gastro-esophageal reflux disease without esophagitis; E11.65 Type 2 diabetes mellitus with hyperglycemia; N17.8 Other acute kidney failure; I25.10 Atherosclerotic heart disease of native coronary artery without angina pectoris; I10 Essential (primary) hypertension; E78.2 Mixed hyperlipidemia; R11.2 Nausea with vomiting, unspecified
CPT/HCPCS: 36415; 80053; 80162; 81001; 82009; 82270; 82550; 82553; 83036; 84484; 85025; 87045; 87086; 87427; 87449; 87493; 87899; 93005; A4216; A4222; G0378; J0696; J1815; J7030; J7050

== ENCOUNTER 2018-07-09 14:47 | Inpatient (IN) ==
[2018-07-09 15:38] LABS: ALBUMIN 3.5 g/dL (3.4-5.0); ALKALINE PHOSPHATASE 69 Units/L (46-116); BLOOD UREA NITROGEN 81 mg/dL (7-18); CALCIUM 9.4 mg/dL (8.5-10.1); CARBON DIOXIDE 18.8 mmol/L (21-32); CHLORIDE 107 mmol/L (98-107); CREATININE 1.96 mg/dL (0.55-1.02); SODIUM 146 mmol/L (136-145); TOTAL PROTEIN 7.5 g/dL (6.4-8.2); eGFR NON BLACK RACES 26 (>60)
[2018-07-09 15:39] LABS: BASOPHILS # (AUTO) 0.1 X10^3/uL (0.0-0.1); BASOPHILS % (AUTO) 0.4 % (0.2-1.0); HEMATOCRIT 42.4 % (36.0-47.0); HEMOGLOBIN 13.3 g/dL (12.0-16.0); LYMPHOCYTES # (AUTO) 2.1 X10^3/uL (1.3-2.9); LYMPHOCYTES % (AUTO) 13.8 % (21.0-51.0); MEAN CORPUSCULAR HEMOGLOBIN 29.4 pg (27.0-34.0); MEAN CORPUSCULAR HGB CONC 31.5 g/dL (33.0-35.0); MEAN CORPUSCULAR VOLUME 93.2 fL (80.0-100.0); MEAN PLATELET VOLUME 10.4 fL (7.4-11.0); MONOCYTES % (AUTO) 6.5 % (0.0-13.0); NEUTROPHILS # (AUTO) 12.1 x10^3/uL (2.2-4.8); NEUTROPHILS % (AUTO) 79.3 % (42.0-75.0); PLATELET COUNT 460 X10^3/uL (150.0-450.0); RED BLOOD COUNT 4.54 X10^6/uL (3.5-5.4); RED CELL DISTRIBUTION WIDTH 16.1 % (11.6-16.5); WHITE BLOOD COUNT 15.3 X10^3/uL (3.6-10.0)
[2018-07-09 15:47] LABS: COR NA(FOR HYPERGLY) 165 mmol/L (136-145)
[2018-07-09 15:51] LABS: ALANINE AMINOTRANSFERASE 39 Units/L (12-78); ASPARTATE AMINO TRANSFERASE 31 Units/L (15-37)
[2018-07-09 15:56] LABS: APPEARANCE,URINE CLOUDY (CLEAR); BILIRUBIN,URINE NEGATIVE (NEGATIVE); BLOOD/HEMOGLOBIN,URINE 2+ (NEGATIVE); COLOR,URINE YELLOW (YELLOW); GLUCOSE, URINE 4+ (NEGATIVE); KETONES,URINE NEGATIVE (NEGATIVE); LEUKOCYTE ESTERASE ,URINE 3+ (NEGATIVE); NITRITES,URINE NEGATIVE (NEGATIVE); PROTEIN,URINE 2+ (NEGATIVE); UROBILINOGEN,URINE NORMAL (NORMAL)
[2018-07-09] MEDS ORDERED: PROVENTIL NEB TX 0.083% 2.5MG/ 3ML ONE ×2 (15:57→16:03)
[2018-07-09 16:02] LABS: BACTERIA,URINE 1+ /HPF (NEGATIVE); SQUAMOUS EPITHELIAL CELL,UR MODERATE /HPF (NEGATIVE); YEAST,URINE FEW /HPF (NEGATIVE)
[2018-07-09] MEDS ORDERED: PROVENTIL NEB TX 0.083% 2.5MG/ 3ML NEB ONE ×2 (16:02→16:05)
[2018-07-09 16:16] LABS: CKMB % 0.7 % (<4); CREATINE KINASE 418 Units/L (26-192); CREATINE KINASE MB 3.1 ng/mL (0-4.0); TROPONIN I 0.18 ng/mL (0-1.5)
--- NOTE | 2018-07-09 16:19 | DR.HYPOGLY ---
HPI Time Seen Time Seen by Provider: 07/09/18 15:20 PCP Primary Care Physician: NIR Complaint Chief Complaint:: PT HAD BEEN UP IN ACTIVITY ROOM IN CHAIR AND SHE WAS NOTED BY STAFF TO BE SLUMPED OVER AND DIFF TO [facility]. Source History Provided: Half-Way Mode of Arrival Mode of Arrival: Stretcher Timing Onset of Chief Complaint: 07/02/18 PMH PMH Past Medical History: Yes Past Medical History: Alzheimers, Anemia, Angina, Anxiety, Arthritis, CHF, COPD, Coronary Artery Disease, Dementia, Depression, Diabetes, Dyslipidemia, GERD and Hypertension Past Surgical History: Yes Surgical History: Abdominal Surgery and Other Family History History of Family Medical Conditions: Yes Family Medical History: Diabetes Mellitus and Heart Failure Social History Do you use any recreational Drugs:: No Lives Where: Half-Way infectious screening In the last 2 months have you had wt loss of >10#?: NO Have you had fever, night sweats or hemotysis?: No Have you traveled outside the country in the last 6 months?: No Isolation: Standard PE Vital Signs Vitals: Temperature 100.0 F Pulse Rate 110 Respiratory Rate 44 Blood Pressure [Left Arm] 173/77 Blood Pressure [Right Calf] 135/75 Blood Pressure [Right Arm] 181/74 Blood Pressure 134/60 O2 Sat by Pulse Oximetry 95 General Limitations: Altered Mental Status General Appearance: In No Apparent Distress Eyes Eye exam: Normal Appearance, PERRL and EOMI Pupils: Regular, Round: Bilateral Sclera/Conjunctival: Normal Inspection: Bilateral ENT ENT Exam: Normal Exam and Normal Oropharynx Nose Exam: Normal Nose Exam Mouth Exam: Normal Inspection Throat Exam: Normal Inspection Neck Neck Exam: Normal Inspection and Full ROM Chest Chest Inspection: Symmetric Chest Wall Rise Respiratory Respiratory Exam: Normal Lung Sounds Bilat Respiratory Exam: Bilateral: Clear to Auscultation Cardiovascular Cardiovascular Exam: Regular Rate and Normal Rhythm Abdominal Exam Abdominal Exam: Normal Inspection and Soft Extremities Extremities Exam: Normal Inspection Back Back Exam: Normal Inspection and Full ROM Neurologic Patient Oriented To: Person Speech: Expressive Aphasia Cranial Nerve Exam: EOM Function (II, III, IV, ): Right Abnormal Skin Skin Exam: Warm, Dry, Intact and Normal Color COURSE Consultation Called: 16:10 Consultation Comments: Dr. Patel agreed to admit for further treatment and evaluation ROR Labs Reviewed Laboratory Results Reviewed?: Yes Result Diagrams: 07/09/18 14:39 07/09/18 14:39 Laboratory: WBC 15.3 X10^3/uL (3.6-10.0) H 07/09/18 14:39 RBC 4.54 X10^6/uL (3.5-5.4) 07/09/18 14:39 Hgb 13.3 g/dL (12.0-16.0) 07/09/18 14:39 Hct 42.4 % (36.0-47.0) 07/09/18 14:39 MCV 93.2 fL (80.0-100.0) 07/09/18 14:39 MCH 29.4 pg (27.0-34.0) 07/09/18 14:39 MCHC 31.5 g/dL (33.0-35.0) L 07/09/18 14:39 RDW 16.1 % (11.6-16.5) 07/09/18 14:39 Plt Count 460 X10^3/uL (150.0-450.0) H 07/09/18 14:39 MPV 10.4 fL (7.4-11.0) 07/09/18 14:39 Neut % (Auto) 79.3 % (42.0-75.0) H 07/09/18 14:39 Lymph % (Auto) 13.8 % (21.0-51.0) L 07/09/18 14:39 [place] % (Auto) 6.5 % (0.0-13.0) 07/09/18 14:39 Eos % (Auto) 0.0 % (0.9-2.9) L 07/09/18 14:39 Baso % (Auto) 0.4 % (0.2-1.0) 07/09/18 14:39 Neut # (Auto) 12.1 x10^3/uL (2.2-4.8) H 07/09/18 14:39 Lymph # (Auto) 2.1 X10^3/uL (1.3-2.9) 07/09/18 14:39 [place] # (Auto) 1.0 x10^3/uL (0.3-0.8) H 07/09/18 14:39 Eos # (Auto) 0.0 x10^3/uL (0.0-0.2) 07/09/18 14:39 Baso # (Auto) 0.1 X10^3/uL (0.0-0.1) 07/09/18 14:39 Absolute Nucleated RBC 0.3 /100WBC 07/09/18 14:39 Sodium 146 mmol/L (136-145) H 07/09/18 14:39 Corrected Sodium 165 mmol/L (136-145) H 07/09/18 14:39 Potassium 5.3 mmol/L (3.5-5.1) H 07/09/18 14:39 Chloride 107 mmol/L (98-107) 07/09/18 14:39 Carbon Dioxide 18.8 mmol/L (21-32) L 07/09/18 14:39 BUN 81 mg/dL (7-18) H 07/09/18 14:39 Creatinine 1.96 mg/dL (0.55-1.02) H 07/09/18 14:39 Est GFR (MDRD) Af Amer 31 (>60) L 07/09/18 14:39 Est GFR (MDRD) Non-Af 26 (>60) L 07/09/18 14:39 Glucose 895 mg/dL (65-99) H* 07/09/18 14:39 Calcium 9.4 mg/dL (8.5-10.1) 07/09/18 14:39 Corrected Calcium TNP 07/09/18 14:39 Total Bilirubin 0.30 mg/dL (0.2-1.0) 07/09/18 14:39 AST 31 Units/L (15-37) 07/09/18 14:39 ALT 39 Units/L (12-78) 07/09/18 14:39 Alkaline Phosphatase 69 Units/L (46-116) 07/09/18 14:39 Total Protein 7.5 g/dL (6.4-8.2) 07/09/18 14:39 Albumin 3.5 g/dL (3.4-5.0) 07/09/18 14:39 Globulin 4.0 g/dL (2.5-4.5) 07/09/18 14:39 Albumin/Globulin Ratio 0.9 Ratio (1.1-2.1) L 07/09/18 14:39 Specimen Type Catherized urine 07/09/18 15:45 Urine Color Yellow (YELLOW) 07/09/18 15:45 Urine Appearance Cloudy (CLEAR) 07/09/18 15:45 Urine pH 5.0 (5.0 - 8.0) 07/09/18 15:45 Ur Specific [place] 1.010 (1.000-1.030) 07/09/18 15:45 Urine Protein 2+ (NEGATIVE) 07/09/18 15:45 Urine Glucose (UA) 4+ (NEGATIVE) 07/09/18 15:45 Urine Ketones Negative (NEGATIVE) 07/09/18 15:45 Urine Occult Blood 2+ (NEGATIVE) 07/09/18 15:45 Urine Nitrite Negative (NEGATIVE) 07/09/18 15:45 Urine Bilirubin Negative (NEGATIVE) 07/09/18 15:45 Urine Urobilinogen Normal (NORMAL) 07/09/18 15:45 Ur Leukocyte Esterase 3+ (NEGATIVE) 07/09/18 15:45 Urine RBC 5-10 /HPF (NONE SEEN) 07/09/18 15:45 Urine WBC Tntc /HPF (NONE SEEN) 07/09/18 15:45 Ur Squamous Epith Cells Moderate /HPF (NEGATIVE) 07/09/18 15:45 Urine Bacteria 1+ /HPF (NEGATIVE) 07/09/18 15:45 Urine Yeast Few /HPF (NEGATIVE) 07/09/18 15:45 Ur Culture Indicated? Yes/culture set up 07/09/18 15:45 Acetone, Semi-Quant Small (NEGATIVE) H 07/09/18 14:39
[2018-07-09] MEDS ORDERED: HumuLIN R IV ONE (16:27)
[2018-07-09] MEDS ORDERED: NS 100 ML IV 100 ML IV ONE (16:28)
[2018-07-09] MEDS ORDERED: NS 1/2 1000 ML IV 1,000 ML IV ONE (16:28)
[2018-07-09] MEDS ORDERED: HumuLIN R ONE ×2 (16:29→16:31)
[2018-07-09] MEDS ORDERED: NS 1/2 1000 ML IV 1,000 ML IV SCH (17:00)
--- NOTE | 2018-07-09 18:56 | RAD ---
HISTORY: Breast lump Study: Single view of the chest. Comparison: None. Findings: The cardiomediastinal silhouette is normal. No focal consolidations, pleural effusions or pneumothorax. Interstitial opacities bilaterally with some hyperexpansion. IMPRESSION: 1. No acute cardiopulmonary process. 2. Findings of COPD. Reported By:
[2018-07-09] MEDS ORDERED: SNACK - Diabetic Appropriate PO SCH (20:00)
[2018-07-09] MEDS: SNACK - Diabetic Appropriate PO SCH (20:36)
[2018-07-09] MEDS ORDERED: TRICOR TAB 48 MG PO SCH (21:00)
[2018-07-09] MEDS ORDERED: BACTRIM SUSP 20 ML PO SCH (21:00)
[2018-07-09] MEDS ORDERED: LEVEMIR SC SCH (21:00)
[2018-07-09 21:55] LABS: CKMB % 1.2 % (<4)
[2018-07-09 22:02] LABS: TROPONIN I 1.92 ng/mL (0-1.5)
[2018-07-09] MEDS: ATARAX TAB 25 MG PO SCH (23:59)
[2018-07-09] MEDS: MIRALAX POWDER (1 DOSE 17 G) PO SCH (23:59)
[2018-07-09] MEDS: COLACE SYRUP 100 MG UDC PO SCH (23:59)
[2018-07-10] MEDS: NORCO 5/325 MG TAB PO SCH ×2 (00:01→05:59)
[2018-07-10] MEDS ORDERED: LANTISEPTIC TOP PRN (01:38)
[2018-07-10] MEDS ORDERED: LANTISEPTIC ONE (01:43)
[2018-07-10] MEDS ORDERED: NS 1/2 1000 ML IV 1,000 ML IV ONE (04:42)
[2018-07-10 06:25] LABS: BASOPHILS # (AUTO) 0.1 X10^3/uL (0.0-0.1); BASOPHILS % (AUTO) 0.4 % (0.2-1.0); HEMATOCRIT 38.5 % (36.0-47.0); HEMOGLOBIN 12.6 g/dL (12.0-16.0); LYMPHOCYTES # (AUTO) 3.4 X10^3/uL (1.3-2.9); LYMPHOCYTES % (AUTO) 16.1 % (21.0-51.0); MEAN CORPUSCULAR HEMOGLOBIN 28.7 pg (27.0-34.0); MEAN CORPUSCULAR HGB CONC 32.6 g/dL (33.0-35.0); MEAN PLATELET VOLUME 10.1 fL (7.4-11.0); MONOCYTES # (AUTO) 1.5 x10^3/uL (0.3-0.8); MONOCYTES % (AUTO) 6.9 % (0.0-13.0); NEUTROPHILS # (AUTO) 16.4 x10^3/uL (2.2-4.8); NEUTROPHILS % (AUTO) 76.6 % (42.0-75.0); PLATELET COUNT 359 X10^3/uL (150.0-450.0); RED BLOOD COUNT 4.38 X10^6/uL (3.5-5.4); RED CELL DISTRIBUTION WIDTH 15.1 % (11.6-16.5); WHITE BLOOD COUNT 21.4 X10^3/uL (3.6-10.0)
[2018-07-10 06:36] LABS: ALBUMIN 3.2 g/dL (3.4-5.0); CALCIUM 9.9 mg/dL (8.5-10.1); CARBON DIOXIDE 23.6 mmol/L (21-32); COR CA(FOR HYPOALB) 10.5 mg/dL (8.5-10.1); CREATININE 1.47 mg/dL (0.55-1.02); TOTAL PROTEIN 6.8 g/dL (6.4-8.2)
[2018-07-10 06:57] VITALS: BMI 22.4
[2018-07-10 07:27] LABS: PLATELET MORPHOLOGY COMMENT NORMAL (NORMAL)
[2018-07-10] MEDS ORDERED: ASPIRIN EC 81 MG PO SCH (09:00)
[2018-07-10] MEDS ORDERED: FLORINEF PO SCH (09:00)
[2018-07-10] MEDS ORDERED: TAB-A-VITE PO SCH (09:00)
[2018-07-10] MEDS ORDERED: DEMADEX PO SCH (09:00)
[2018-07-10] MEDS ORDERED: LIPITOR TAB 20 MG PO SCH (09:00)
[2018-07-10] MEDS ORDERED: LANOXIN PO SCH (09:00)
[2018-07-10] MEDS ORDERED: D5W IV SCH (09:00)
[2018-07-10] MEDS ORDERED: XARELTO PO SCH (09:00)
[2018-07-10] MEDS ORDERED: LEVOFLOXACIN IV SCH (09:00)
[2018-07-10] MEDS: NIZORAL CREAM TOP SCH ×2 (10:01→21:35)
[2018-07-10] MEDS: AQUAPHOR TOP SCH ×2 (10:01→21:25)
[2018-07-10] MEDS: KENALOG CREAM TOP SCH ×2 (10:01→21:15)
[2018-07-10] MEDS: ATARAX TAB 25 MG PO SCH (10:02)
[2018-07-10] MEDS: COLACE SYRUP 100 MG UDC PO SCH (10:03)
[2018-07-10] MEDS: ZESTRIL TAB 5 MG PO SCH ×2 (10:03)
[2018-07-10] MEDS: VITAMIN C PO SCH ×2 (10:05)
[2018-07-10] MEDS: MIRALAX POWDER (1 DOSE 17 G) PO SCH (10:07)
[2018-07-10] MEDS: NUT TX GLUC INTOL LAC FREE SOY PO SCH (10:08)
[2018-07-10] MEDS: [UNRECOGNIZED DRUG - OTHER] PO SCH (10:08)
[2018-07-10] MEDS: POTASSIUM CHLORIDE LIQ 20 MEQ UDC PO SCH (10:10)
[2018-07-10 11:45] LABS: CKMB % 0.7 % (<4); CREATINE KINASE MB 2.3 ng/mL (0-4.0)
[2018-07-10 12:25] LABS: TROPONIN I 2.13 ng/mL (0-1.5)
[2018-07-10] MEDS ORDERED: HEPARIN SODIUM IN D5W 25,000 UNITS/500 ML BAG IV PRN (12:29)
[2018-07-10] MEDS ORDERED: HEPARIN SODIUM INJ 5000 UNITS IVP ONE ×2 (14:36→23:27)
[2018-07-10] MEDS: SNACK - Diabetic Appropriate PO SCH (20:57)
[2018-07-11 04:10] LABS: BASOPHILS # (AUTO) 0.1 X10^3/uL (0.0-0.1); BASOPHILS % (AUTO) 0.3 % (0.2-1.0); EOSINOPHILS # (AUTO) 0.1 x10^3/uL (0.0-0.2); EOSINOPHILS % (AUTO) 0.3 % (0.9-2.9); HEMOGLOBIN 12.2 g/dL (12.0-16.0); LYMPHOCYTES # (AUTO) 3.5 X10^3/uL (1.3-2.9); LYMPHOCYTES % (AUTO) 17.1 % (21.0-51.0); MEAN CORPUSCULAR HEMOGLOBIN 28.3 pg (27.0-34.0); MEAN CORPUSCULAR VOLUME 88.5 fL (80.0-100.0); MEAN PLATELET VOLUME 10.1 fL (7.4-11.0); MONOCYTES % (AUTO) 4.9 % (0.0-13.0); NEUTROPHILS # (AUTO) 15.9 x10^3/uL (2.2-4.8); NEUTROPHILS % (AUTO) 77.4 % (42.0-75.0); PLATELET COUNT 337 X10^3/uL (150.0-450.0); RED BLOOD COUNT 4.29 X10^6/uL (3.5-5.4); WHITE BLOOD COUNT 20.6 X10^3/uL (3.6-10.0)
[2018-07-11 04:16] LABS: ALBUMIN 3.1 g/dL (3.4-5.0); CALCIUM 9.9 mg/dL (8.5-10.1); CARBON DIOXIDE 28.1 mmol/L (21-32); COR CA(FOR HYPOALB) 10.6 mg/dL (8.5-10.1); CREATININE 1.27 mg/dL (0.55-1.02); TOTAL PROTEIN 6.8 g/dL (6.4-8.2)
[2018-07-11 06:28] LABS: ABG BASE EXCESS 8.1 mmol/L (-2.0-2.0)
[2018-07-11 06:29] LABS: ABG ALLEN TEST pos
[2018-07-11] MEDS: AQUAPHOR TOP SCH ×2 (10:04→22:04)
[2018-07-11] MEDS: KENALOG CREAM TOP SCH ×2 (10:04→22:04)
[2018-07-11] MEDS: NIZORAL CREAM TOP SCH ×2 (10:05→22:04)
[2018-07-11] MEDS: NUT TX GLUC INTOL LAC FREE SOY PO SCH (10:22)
[2018-07-11] MEDS: POTASSIUM CHLORIDE LIQ 20 MEQ UDC PO SCH (10:22)
[2018-07-11] MEDS: [UNRECOGNIZED DRUG - OTHER] PO SCH (10:22)
[2018-07-11] MEDS: D5W 1000 ML IV 1,000 ML IV SCH (10:22)
[2018-07-11] MEDS: SNACK - Diabetic Appropriate PO SCH (20:33)
[2018-07-11] MEDS: LOVENOX INJ 30 MG SYR SC SCH (21:33)
--- NOTE | 2018-07-11 22:20 | DR.H&P ---
H&P - History & Physical for Day of: H&P Date: 07/09/18 - Chief Complaint Chief Complaint: AMS, LETHARGIC - History of Present Illness History of Present Illness: IS A 87 YEAR OLD PATIENT OF OURS. SHE IS A RESIDENT OF [facility]. STAFF REPORTS THAT SHE HAS BEEN DIFFICULT TO AROUSE TODAY. ON ARRIVAL TO THE ER, VITALS WERE 100.0-110-44-95%-134/60. LABS WERE OBTAINED. ABNORMAL LAB VALUES INCLUDE THE FOLLOWING: WBC 15.3, PLT COUNT 460, SDIUM 146, POTASSIUM 5.3, CARBON DIOXIDE 18.8, BUN 81, CREATININE 1.96, GLUCOSE 895, MAGNESIUM 3.0, CREATINE KINASE 418. URINALYSIS REVEALED: WBC TNTC, RBC 5-10, BACTERAI 1+, YEAST FEW, LEUKOCYTES 3+. URINE AND BLOOD CULTURES ARE PENDING. ACETONES SMALL. EKG REVEALED: SINUS TACHYCARDIA WITH HR 111. CHEST XRAY REVEALED: No acute cardiopulmonary process. Findings of COPD. SHE WAS ADMITTED TO THE INTENSIVE CARE UNIT FOR FURTHER EVALUATION AND TREATMENT OF AMS, HYPERGLYCEMIA, PRERENAL AZOTEMIA, AND A URINARY TRACT INFECTION. SHE WAS STARTED ON AN INSULIN DRIP, LEVAQUIN IV, NORMAL SALINE AT 100ML/HR, AND HOME MEDICATIONS WERE RESUMED. WE PLAN TO FOLLOW UP WITH AM LABS AND CONTINUE TO MONITOR PATIENT. - Past Medical History Past Medical History: Angina, Coronary Artery Disease, Hypertension, Dyslipidemia, Diabetes, Alzheimers, Dementia, Depression, Anxiety, Anemia, COPD, GERD, Arthritis, CHF Additional Medical History: Cataracts, Dementia, Sick Sinus Syndrome, Cardiac Arrhythmia, Constipation, Gastroparesis, UTI's, Muscle Weakness, Neoplasm of Large Intestine, Sleep Apnea, Osteoarthritis - Past Surgical History Surgical History: Abdominal Surgery, Other Additional Surgical History: Pacemaker - Family History Family Medical History: Diabetes Mellitus, Heart Failure - Social History Does patient currently use any type of tobacco product: No Have you used tobacco products in the last 12 months: No Type of Tobacco Use: None Does any household member use tobacco: No Alcohol Use: None Drug Use: None - Medications Home Medications: erythromycin base [From Erythrocin] Adverse Reaction (Verified 07/09/18 14:51) - Review of Systems Constitutional: See HPI, Weakness Eyes: No Symptoms Reported ENT: No Symptoms Reported Respiratory: No Symptoms Reported Cardiovascular: No Symptoms Reported Gastrointestinal: No Symptoms Reported Genitourinary: No Symptoms Reported Musculoskeletal: No Symptoms Reported Skin: No Symptoms Reported Neurological: See HPI, Weakness, Confusion - Physical Exam Vital Signs: Temperature 99.0 F Pulse Rate [Apical] 117 Pulse Rate 96 Respiratory Rate 29 Blood Pressure [Left Arm] 173/77 Blood Pressure [Right Calf] 135/75 Blood Pressure [Right Arm] 128/58 Blood Pressure 179/76 O2 Sat by Pulse Oximetry 100 Oriented: Not Oriented Eyes: Normal Ear: Normal Nose: Normal Throat: Normal Respiratory: Diminished Throughout Cardiovascular: Tachycardia. negative: S3, S4, Murmur, Edema : Normal Auscultation: Bowel Sounds: Normal Palpation: Normal Tenderness: Normal Skin: Normal Musculoskeletal: Normal Psychiatric: Other (LETHARGIC) Mood Description: Calm Affect: Flat Speech Pattern: Inappropriate - Assessment/Plan (1) Prerenal azotemia Status: Acute Plan: 1/2NS AT 100ML/HR, CONTINUE TO MONITOR (2) Hyperglycemia Status: Acute Plan: INSULIN DRIP, 1/2NS AT 100ML/HR, MONITOR OTBS, CONTINUE TO MONITOR (3) Urinary tract infection Qualifiers: Urinary tract infection type: acute cystitis Hematuria presence: with hematuria Qualified Code(s): N30.01 - Acute cystitis with hematuria Status: Acute Plan: LEVAQUIN IV, CONTINUE TO MONITOR (4) Mental status alteration Qualifiers: Altered mental status type: transient alteration of awareness Qualified Code(s): R40.4 - Transient alteration of awareness Status: Acute Plan: CONTINUE TO MONITOR - Allergies Allergies/Adverse Reactions: Allergies Allergy/AdvReac Type Severity Reaction Status Date / Time erythromycin base AdvReac Verified 07/09/18 14:51 [From Erythrocin]
[2018-07-12 07:05] LABS: BASOPHILS # (AUTO) 0.1 X10^3/uL (0.0-0.1); BASOPHILS % (AUTO) 0.5 % (0.2-1.0); EOSINOPHILS # (AUTO) 0.1 x10^3/uL (0.0-0.2); EOSINOPHILS % (AUTO) 0.5 % (0.9-2.9); HEMATOCRIT 36.3 % (36.0-47.0); HEMOGLOBIN 11.5 g/dL (12.0-16.0); LYMPHOCYTES % (AUTO) 19.6 % (21.0-51.0); MEAN CORPUSCULAR HEMOGLOBIN 28.4 pg (27.0-34.0); MEAN CORPUSCULAR HGB CONC 31.8 g/dL (33.0-35.0); MEAN CORPUSCULAR VOLUME 89.3 fL (80.0-100.0); MONOCYTES # (AUTO) 0.6 x10^3/uL (0.3-0.8); MONOCYTES % (AUTO) 4.1 % (0.0-13.0); NEUTROPHILS # (AUTO) 11.4 x10^3/uL (2.2-4.8); NEUTROPHILS % (AUTO) 75.3 % (42.0-75.0); PLATELET COUNT 287 X10^3/uL (150.0-450.0); RED BLOOD COUNT 4.07 X10^6/uL (3.5-5.4); RED CELL DISTRIBUTION WIDTH 15.5 % (11.6-16.5); WHITE BLOOD COUNT 15.2 X10^3/uL (3.6-10.0)
[2018-07-12 07:16] LABS: ALANINE AMINOTRANSFERASE 26 Units/L (12-78); ALBUMIN 2.9 g/dL (3.4-5.0); ALKALINE PHOSPHATASE 67 Units/L (46-116); ASPARTATE AMINO TRANSFERASE 18 Units/L (15-37); BLOOD UREA NITROGEN 56 mg/dL (7-18); CALCIUM 9.4 mg/dL (8.5-10.1); CARBON DIOXIDE 28.4 mmol/L (21-32); COR CA(FOR HYPOALB) 10.3 mg/dL (8.5-10.1); COR NA(FOR HYPERGLY) 167 mmol/L (136-145); CREATININE 1.07 mg/dL (0.55-1.02); TOTAL PROTEIN 6.6 g/dL (6.4-8.2); eGFR NON BLACK RACES 51 (>60)
[2018-07-12 07:29] LABS: CHLORIDE 126 mmol/L (98-107); SODIUM 165 mmol/L (136-145)
[2018-07-12] MEDS: NIZORAL CREAM TOP SCH ×2 (09:43→21:14)
[2018-07-12] MEDS: KENALOG CREAM TOP SCH ×2 (09:43→21:13)
[2018-07-12] MEDS: AQUAPHOR TOP SCH ×2 (09:43→21:13)
[2018-07-12] MEDS: LOVENOX INJ 30 MG SYR SC SCH ×2 (09:43→20:56)
[2018-07-12] MEDS: POTASSIUM CHLORIDE LIQ 20 MEQ UDC PO SCH (09:43)
[2018-07-12] MEDS: [UNRECOGNIZED DRUG - OTHER] PO SCH (09:57)
[2018-07-12] MEDS: NUT TX GLUC INTOL LAC FREE SOY PO SCH (09:57)
[2018-07-12] MEDS: D5W 1000 ML IV 1,000 ML IV SCH (18:04)
[2018-07-12] MEDS: SNACK - Diabetic Appropriate PO SCH ×2 (20:30→20:45)
[2018-07-12] MEDS: ZESTRIL TAB 5 MG PO SCH (20:56)
[2018-07-13 06:29] LABS: BASOPHILS # (AUTO) 0.1 X10^3/uL (0.0-0.1); BASOPHILS % (AUTO) 0.6 % (0.2-1.0); EOSINOPHILS # (AUTO) 0.2 x10^3/uL (0.0-0.2); EOSINOPHILS % (AUTO) 1.1 % (0.9-2.9); HEMATOCRIT 37.4 % (36.0-47.0); LYMPHOCYTES # (AUTO) 2.9 X10^3/uL (1.3-2.9); LYMPHOCYTES % (AUTO) 20.7 % (21.0-51.0); MEAN CORPUSCULAR HEMOGLOBIN 28.6 pg (27.0-34.0); MEAN CORPUSCULAR VOLUME 89.2 fL (80.0-100.0); MEAN PLATELET VOLUME 10.6 fL (7.4-11.0); MONOCYTES # (AUTO) 0.6 x10^3/uL (0.3-0.8); MONOCYTES % (AUTO) 4.6 % (0.0-13.0); NEUTROPHILS # (AUTO) 10.3 x10^3/uL (2.2-4.8); PLATELET COUNT 293 X10^3/uL (150.0-450.0); RED BLOOD COUNT 4.19 X10^6/uL (3.5-5.4); RED CELL DISTRIBUTION WIDTH 15.4 % (11.6-16.5); WHITE BLOOD COUNT 14.1 X10^3/uL (3.6-10.0)
[2018-07-13 06:35] LABS: ALBUMIN 3.1 g/dL (3.4-5.0); CALCIUM 9.8 mg/dL (8.5-10.1); CARBON DIOXIDE 28.2 mmol/L (21-32); COR CA(FOR HYPOALB) 10.5 mg/dL (8.5-10.1); CREATININE 1.66 mg/dL (0.55-1.02)
[2018-07-13] MEDS: ZESTRIL TAB 5 MG PO SCH ×2 (08:54→21:35)
[2018-07-13] MEDS: POTASSIUM CHLORIDE LIQ 20 MEQ UDC PO SCH (08:57)
[2018-07-13] MEDS: LOVENOX INJ 30 MG SYR SC SCH ×2 (08:57→21:35)
[2018-07-13] MEDS: NUT TX GLUC INTOL LAC FREE SOY PO SCH (11:40)
[2018-07-13] MEDS: AQUAPHOR TOP SCH ×2 (11:40→21:34)
[2018-07-13] MEDS: [UNRECOGNIZED DRUG - OTHER] PO SCH (11:40)
[2018-07-13] MEDS: D5W 1000 ML IV 1,000 ML IV SCH (11:41)
[2018-07-13] MEDS: KENALOG CREAM TOP SCH ×2 (11:41→21:35)
[2018-07-13] MEDS: NIZORAL CREAM TOP SCH ×2 (11:42→21:35)
[2018-07-13] MEDS: SNACK - Diabetic Appropriate PO SCH (21:34)
[2018-07-14] MEDS: D5W 1000 ML IV 1,000 ML IV SCH (05:56)
[2018-07-14 06:39] LABS: ALANINE AMINOTRANSFERASE 28 Units/L (12-78); ALBUMIN 2.6 g/dL (3.4-5.0); ALKALINE PHOSPHATASE 67 Units/L (46-116); ASPARTATE AMINO TRANSFERASE 26 Units/L (15-37); BLOOD UREA NITROGEN 82 mg/dL (7-18); CALCIUM 8.8 mg/dL (8.5-10.1); COR CA(FOR HYPOALB) 9.9 mg/dL (8.5-10.1); COR NA(FOR HYPERGLY) 160 mmol/L (136-145); CREATININE 1.61 mg/dL (0.55-1.02); TOTAL PROTEIN 5.9 g/dL (6.4-8.2); eGFR NON BLACK RACES 32 (>60)
[2018-07-14 06:51] LABS: BASOPHILS # (AUTO) 0.1 X10^3/uL (0.0-0.1); BASOPHILS % (AUTO) 0.5 % (0.2-1.0); EOSINOPHILS # (AUTO) 0.8 x10^3/uL (0.0-0.2); EOSINOPHILS % (AUTO) 6.6 % (0.9-2.9); HEMOGLOBIN 10.4 g/dL (12.0-16.0); LYMPHOCYTES # (AUTO) 2.9 X10^3/uL (1.3-2.9); LYMPHOCYTES % (AUTO) 23.4 % (21.0-51.0); MEAN CORPUSCULAR HEMOGLOBIN 28.8 pg (27.0-34.0); MEAN CORPUSCULAR HGB CONC 32.5 g/dL (33.0-35.0); MEAN CORPUSCULAR VOLUME 88.7 fL (80.0-100.0); MEAN PLATELET VOLUME 10.9 fL (7.4-11.0); MONOCYTES # (AUTO) 0.6 x10^3/uL (0.3-0.8); MONOCYTES % (AUTO) 4.9 % (0.0-13.0); NEUTROPHILS # (AUTO) 7.9 x10^3/uL (2.2-4.8); NEUTROPHILS % (AUTO) 64.6 % (42.0-75.0); PLATELET COUNT 239 X10^3/uL (150.0-450.0); RED CELL DISTRIBUTION WIDTH 15.2 % (11.6-16.5); WHITE BLOOD COUNT 12.3 X10^3/uL (3.6-10.0)
[2018-07-14 06:53] LABS: CHLORIDE 123 mmol/L (98-107); SODIUM 159 mmol/L (136-145)
[2018-07-14 07:03] LABS: SERUM ACETONE NEGATIVE (NEGATIVE)
[2018-07-14] MEDS: POTASSIUM CHLORIDE LIQ 20 MEQ UDC PO SCH (09:11)
[2018-07-14] MEDS: KENALOG CREAM TOP SCH (09:12)
[2018-07-14] MEDS: AQUAPHOR TOP SCH (09:12)
[2018-07-14] MEDS: LOVENOX INJ 30 MG SYR SC SCH (09:12)
[2018-07-14] MEDS: NIZORAL CREAM TOP SCH (09:13)
[2018-07-14] MEDS: NUT TX GLUC INTOL LAC FREE SOY PO SCH (09:14)
[2018-07-14] MEDS: [UNRECOGNIZED DRUG - OTHER] PO SCH (09:14)
[2018-07-14] MEDS: ZESTRIL TAB 5 MG PO SCH (09:15)
[2018-07-14] MEDS ORDERED: D5W 1000 ML IV 1,000 ML IV SCH (10:00)
[2018-07-14 13:08] VITALS: BP 156/67
[2020-07-10] MEDS ORDERED: LEVAQUIN PREMIX IV 250 MG 250 MG/50 ML BAG IV SCH (09:00)
== END 2018-07-14 13:55 | DRG 884 ==
LOC: ER 14:47 → ICU 16:20
PROVIDERS: ADMIT Internal Medicine; ATTEND Internal Medicine
DX: R40.4 Transient alteration of awareness; E78.2 Mixed hyperlipidemia; N30.01 Acute cystitis with hematuria; E87.5 Hyperkalemia; R79.89 Other specified abnormal findings of blood chemistry; E87.0 Hyperosmolality and hypernatremia; E86.0 Dehydration; E11.65 Type 2 diabetes mellitus with hyperglycemia; R79.1 Abnormal coagulation profile; J44.9 Chronic obstructive pulmonary disease, unspecified; Z66 Do not resuscitate; I25.10 Atherosclerotic heart disease of native coronary artery without angina pectoris; K21.9 Gastro-esophageal reflux disease without esophagitis; R94.31 Abnormal electrocardiogram [ECG] [EKG]
CPT/HCPCS: 36415; 36600; 51702; 71010; 71045; 80053; 81001; 82009; 82550; 82553; 82803; 82947; 83735; 84484; 85025; 85730; 87040; 87086; 93005; 94640; 96365; 96374; 96375; 99283; 99285; A4216; A4222; J1644; J1650; J1815; J7050; J7060; J7613

== ENCOUNTER 2018-08-27 17:25 | Inpatient (IN) ==
[2018-08-27] MEDS ORDERED: NS 1000 ML 2,000 ML IV ONE (18:25)
[2018-08-27 19:37] LABS: MAGNESIUM 4.5 mg/dL (1.7-2.9); PHOSPHORUS 8.4 mg/dL (2.6-4.7)
[2018-08-27 20:13] LABS: CKMB % 1.5 % (<4); TROPONIN I 0.54 ng/mL (0-1.5)
[2018-08-27 20:17] LABS: CREATINE KINASE MB 4.3 ng/mL (0-4.0)
[2018-08-27 21:06] LABS: BILIRUBIN,URINE 2+ (NEGATIVE); BLOOD/HEMOGLOBIN,URINE 3+ (NEGATIVE); GLUCOSE, URINE NEGATIVE (NEGATIVE); KETONES,URINE NEGATIVE (NEGATIVE); LEUKOCYTE ESTERASE ,URINE 3+ (NEGATIVE); NITRITES,URINE NEGATIVE (NEGATIVE); PROTEIN,URINE 2+ (NEGATIVE); UROBILINOGEN,URINE NORMAL (NORMAL)
[2018-08-27 21:10] LABS: APPEARANCE,URINE HAZY (CLEAR); BACTERIA,URINE 3+ /HPF (NEGATIVE); COLOR,URINE DARK YELLOW (YELLOW); RENAL EPITHELIAL CELLS,URINE FEW /HPF (NEGATIVE); SQUAMOUS EPITHELIAL CELL,UR RARE /HPF (NEGATIVE)
--- NOTE | 2018-08-27 21:13 | RAD ---
July 09, 2018 History: Leukocytosis Exam: Single-view chest x-ray Comparison: July 09, 2018 Findings: Central airway is midline. Cardiomediastinal silhouette is stable. Dual lead cardiac pacemaker is stable. Mildly hyperexpanded lungs and coarsened interstitial markings are again seen. No pneumothorax. No focal consolidation, pneumothorax, or pleural effusion. Degenerative changes of the bilateral glenohumeral joints. Otherwise the osseous structures are intact. Impression: No acute process. Reported By:
[2018-08-27] MEDS ORDERED: FORTAZ or TAZICEF VIAL INJ IVP SCH (22:00)
[2018-08-27] MEDS: FORTAZ or TAZICEF VIAL INJ 500 MG in NS 25 ML IV 25 ML IV SCH (22:20)
[2018-08-27] MEDS ORDERED: FORTAZ or TAZICEF VIAL INJ ONE (22:20)
[2018-08-27] MEDS ORDERED: NS 25 ML IV 50 ML ONE (22:20)
[2018-08-27] MEDS ORDERED: NS 1/2 1000 ML IV 1,000 ML IV ONE (22:30)
[2018-08-27] MEDS: NS 1/2 1000 ML IV 1,000 ML IV SCH (23:47)
[2018-08-28 01:30] LABS: CKMB % 1.6 % (<4); TROPONIN I 0.43 ng/mL (0-1.5)
[2018-08-28 01:34] LABS: CREATINE KINASE MB 4.4 ng/mL (0-4.0)
[2018-08-28 05:10] LABS: BILIRUBIN,URINE 1+ (NEGATIVE); BLOOD/HEMOGLOBIN,URINE 4+ (NEGATIVE); GLUCOSE, URINE NEGATIVE (NEGATIVE); KETONES,URINE NEGATIVE (NEGATIVE); LEUKOCYTE ESTERASE ,URINE 3+ (NEGATIVE); NITRITES,URINE POSITIVE (NEGATIVE); PROTEIN,URINE 2+ (NEGATIVE); UROBILINOGEN,URINE NORMAL (NORMAL)
[2018-08-28] MEDS ORDERED: NS 1/2 1000 ML IV 1,000 ML IV ONE ×3 (05:11→19:44)
[2018-08-28 05:15] LABS: APPEARANCE,URINE TURBID (CLEAR); COLOR,URINE YELLOW (YELLOW)
[2018-08-28 05:16] LABS: AMORPHOUS SEDIMENT,UR 1+ /HPF (NEGATIVE); BACTERIA,URINE 4+ /HPF (NEGATIVE); RBC,URINE TNTC /HPF (NONE SEEN); SQUAMOUS EPITHELIAL CELL,UR FEW /HPF (NEGATIVE); YEAST,URINE MODERATE /HPF (NEGATIVE)
[2018-08-28] MEDS: NS 1/2 1000 ML IV 1,000 ML IV SCH ×4 (05:37→20:27)
[2018-08-28 06:25] LABS: BASOPHILS # (AUTO) 0.1 X10^3/uL (0.0-0.1); EOSINOPHILS # (AUTO) 0.2 x10^3/uL (0.0-0.2); EOSINOPHILS % (AUTO) 1.2 % (0.9-2.9); HEMATOCRIT 33.5 % (36.0-47.0); HEMOGLOBIN 10.5 g/dL (12.0-16.0); LYMPHOCYTES % (AUTO) 22.5 % (21.0-51.0); MEAN CORPUSCULAR HEMOGLOBIN 28.5 pg (27.0-34.0); MEAN CORPUSCULAR HGB CONC 31.3 g/dL (33.0-35.0); MEAN CORPUSCULAR VOLUME 91.1 fL (80.0-100.0); MEAN PLATELET VOLUME 11.7 fL (7.4-11.0); MONOCYTES # (AUTO) 0.7 x10^3/uL (0.3-0.8); MONOCYTES % (AUTO) 5.4 % (0.0-13.0); NEUTROPHILS # (AUTO) 9.2 x10^3/uL (2.2-4.8); NEUTROPHILS % (AUTO) 69.9 % (42.0-75.0); PLATELET COUNT 196 X10^3/uL (150.0-450.0); RED BLOOD COUNT 3.68 X10^6/uL (3.5-5.4); WHITE BLOOD COUNT 13.1 X10^3/uL (3.6-10.0)
[2018-08-28 07:09] LABS: ALBUMIN 2.9 g/dL (3.4-5.0); CALCIUM 8.8 mg/dL (8.5-10.1); CARBON DIOXIDE 20.3 mmol/L (21-32); CKMB % 2.1 % (<4); COR CA(FOR HYPOALB) 9.7 mg/dL (8.5-10.1); CREATININE 4.77 mg/dL (0.55-1.02); TOTAL PROTEIN 5.9 g/dL (6.4-8.2); TROPONIN I 0.38 ng/mL (0-1.5)
[2018-08-28 07:16] LABS: CREATINE KINASE MB 9.4 ng/mL (0-4.0)
[2018-08-28 17:34] VITALS: BMI 18.4
[2018-08-28] MEDS: HumuLIN R SUBCUT PRN (17:56)
[2018-08-28] MEDS: FORTAZ or TAZICEF VIAL INJ 500 MG in NS 25 ML IV 25 ML IV SCH (20:29)
[2018-08-28] MEDS ORDERED: IRON FOLIC ACID MV MIN CMB PO SCH (21:00)
[2018-08-28] MEDS ORDERED: HumuLIN R SUBCUT SCH (21:00)
[2018-08-28] MEDS ORDERED: [UNRECOGNIZED DRUG - OTHER] PO SCH (21:00)
[2018-08-28] MEDS ORDERED: NIZORAL SHAMPOO TOP SCH (21:00)
[2018-08-28] MEDS ORDERED: NUT TX GLUC INTOL LAC FREE SOY PO SCH (21:00)
[2018-08-28] MEDS ORDERED: AQUAPHOR TOP SCH (21:00)
[2018-08-28] MEDS ORDERED: PEPCID TAB 20 MG PO SCH (21:00)
[2018-08-28] MEDS ORDERED: MEGACE PO SCH (21:00)
[2018-08-28] MEDS ORDERED: FLUOCINONIDE TP SCH (21:00)
[2018-08-28] MEDS: COLACE SYRUP 100 MG UDC PO SCH (21:54)
[2018-08-28] MEDS: SNACK - Diabetic Appropriate PO SCH (21:54)
[2018-08-28] MEDS: PATIENT'S HOME MEDICATION (Cran-Vitc-Mannose-Fos-Bromeln [Uti-Stat] 30 ML) PO SCH ×2 (21:54→21:56)
[2018-08-28] MEDS: LEVEMIR SC SCH (21:56)
[2018-08-28] MEDS: MIRALAX POWDER (1 DOSE 17 G) PO SCH (21:57)
[2018-08-28] MEDS: ZESTRIL TAB 5 MG PO SCH (21:58)
[2018-08-28] MEDS: VITAMIN C PO SCH (21:58)
[2018-08-28] MEDS: TRICOR TAB 48 MG PO SCH (21:58)
[2018-08-28] MEDS: PEPCID TAB 20 MG PO SCH (21:58)
[2018-08-29] MEDS: NS 1/2 1000 ML IV 1,000 ML IV SCH ×6 (00:15→20:31)
[2018-08-29] MEDS ORDERED: NS 1/2 1000 ML IV 1,000 ML IV ONE ×2 (05:02→16:24)
[2018-08-29 05:07] LABS: BASOPHILS # (AUTO) 0.1 X10^3/uL (0.0-0.1); BASOPHILS % (AUTO) 0.7 % (0.2-1.0); EOSINOPHILS # (AUTO) 0.6 x10^3/uL (0.0-0.2); EOSINOPHILS % (AUTO) 6.6 % (0.9-2.9); HEMOGLOBIN 8.7 g/dL (12.0-16.0); LYMPHOCYTES # (AUTO) 2.6 X10^3/uL (1.3-2.9); LYMPHOCYTES % (AUTO) 28.4 % (21.0-51.0); MEAN CORPUSCULAR HEMOGLOBIN 29.1 pg (27.0-34.0); MEAN CORPUSCULAR HGB CONC 32.3 g/dL (33.0-35.0); MEAN CORPUSCULAR VOLUME 90.2 fL (80.0-100.0); MEAN PLATELET VOLUME 12.1 fL (7.4-11.0); MONOCYTES # (AUTO) 0.6 x10^3/uL (0.3-0.8); MONOCYTES % (AUTO) 6.2 % (0.0-13.0); NEUTROPHILS # (AUTO) 5.4 x10^3/uL (2.2-4.8); NEUTROPHILS % (AUTO) 58.1 % (42.0-75.0); PLATELET COUNT 154 X10^3/uL (150.0-450.0); RED BLOOD COUNT 2.99 X10^6/uL (3.5-5.4); RED CELL DISTRIBUTION WIDTH 15.1 % (11.6-16.5); WHITE BLOOD COUNT 9.3 X10^3/uL (3.6-10.0)
[2018-08-29 05:15] LABS: ALBUMIN 2.4 g/dL (3.4-5.0); CARBON DIOXIDE 18.3 mmol/L (21-32); COR CA(FOR HYPOALB) 9.3 mg/dL (8.5-10.1); CREATININE 2.29 mg/dL (0.55-1.02)
[2018-08-29] MEDS: MIRALAX POWDER (1 DOSE 17 G) PO SCH ×2 (08:28→20:31)
[2018-08-29] MEDS: MEGACE PO SCH (08:29)
[2018-08-29] MEDS: ZESTRIL TAB 5 MG PO SCH ×2 (08:29→20:30)
[2018-08-29] MEDS: TAB-A-VITE PO SCH (08:29)
[2018-08-29] MEDS: COLACE SYRUP 100 MG UDC PO SCH ×2 (08:29→20:30)
[2018-08-29] MEDS: LIPITOR TAB 20 MG PO SCH (08:29)
[2018-08-29] MEDS: FLORINEF PO SCH (08:29)
[2018-08-29] MEDS: VITAMIN C PO SCH ×2 (08:29→20:30)
[2018-08-29] MEDS: PEPCID TAB 20 MG PO SCH ×2 (08:29→20:31)
[2018-08-29] MEDS: HEMOCYTE-PLUS PO SCH ×2 (08:31→20:30)
[2018-08-29] MEDS ORDERED: MEGESTROL 40 MG PO SCH (09:00)
[2018-08-29] MEDS ORDERED: PATIENT'S HOME MEDICATION (Zinc [Zinc] 50 MG) PO SCH (09:00)
[2018-08-29] MEDS: LEVEMIR SC SCH ×2 (10:50→22:23)
--- NOTE | 2018-08-29 12:01 | PCM.PROG ---
Progress Note - Progress Note for Day of Date of Exam: 08/29/18 - Subjective Subjective: 87 WM RESIDENT OF [facility] PT OF DR MAYES ADMITTED ON 08/27 WITH AMS, DEHYDRATION, ELECTROLYTE IMBALANCE, UTI. PT CONTINUES WITH GENERALIZED WEAKNESS AND DECREASED RESPONSIVENESS. PT HAS UTI + KLEBSIELLA CURRENTLY ON FORTAZ. PT NA167, K5.2 - Past Medical Family Social History Past Med/Fam/Surg Hx: No changes since H&P Allergies: Allergies erythromycin base [From Erythrocin] Adverse Reaction (Verified 07/09/18 14:51) - Review of Systems ROS: No change since H&P - Vital Signs and I&O's Vital Signs: Temperature 97.3 F Pulse Rate [Left Brachial] 67 Respiratory Rate 18 Blood Pressure [Left Arm] 148/68 Blood Pressure [Right Calf] 135/75 Blood Pressure [Right Arm] 162/67 Blood Pressure 156/67 O2 Sat by Pulse Oximetry 98 Intake and Output: Intake & Output 08/26/18 08/27/18 08/28/18 08/29/18 11:59 11:59 11:59 11:59 Intake Total 0 / 0 2535 / 2535 Output Total 150 / 150 1250 / 1250 Balance -150 / -150 1285 / 1285 - Physical Exam Oriented: Person Eyes: Normal Ear: Normal Nose: Normal Throat: Dry Respiratory: Diminished Cardiovascular: Normal : Normal Auscultation: Bowel Sounds: Normal Palpation: Normal Skin: Decreased Turgur Musculoskeletal: Back:Thoracic, Back:Lumbar, Tender, Sensory Deficit, Instability Psychiatric: Anxiety Speech Pattern: Unclear, Aphasic - Laboratory and Diagnostics Result Diagrams: 08/29/18 04:09 08/29/18 04:09 Labs: 08/27/18 20:27 Urine,Catheterized Urine Culture - Final Klebsiella Pneumoniae 08/27/18 19:10 Blood Blood Culture - Preliminary 08/27/18 19:03 Blood Blood Culture - Preliminary Laboratory WBC 9.3 X10^3/uL (3.6-10.0) 08/29/18 04:09 RBC 2.99 X10^6/uL (3.5-5.4) L 08/29/18 04:09 Hgb 8.7 g/dL (12.0-16.0) L 08/29/18 04:09 Hct 27.0 % (36.0-47.0) L 08/29/18 04:09 MCV 90.2 fL (80.0-100.0) 08/29/18 04:09 MCH 29.1 pg (27.0-34.0) 08/29/18 04:09 MCHC 32.3 g/dL (33.0-35.0) L 08/29/18 04:09 RDW 15.1 % (11.6-16.5) 08/29/18 04:09 Plt Count 154 X10^3/uL (150.0-450.0) 08/29/18 04:09 MPV 12.1 fL (7.4-11.0) H 08/29/18 04:09 Neut % (Auto) 58.1 % (42.0-75.0) 08/29/18 04:09 Lymph % (Auto) 28.4 % (21.0-51.0) 08/29/18 04:09 [place] % (Auto) 6.2 % (0.0-13.0) 08/29/18 04:09 Eos % (Auto) 6.6 % (0.9-2.9) H 08/29/18 04:09 Baso % (Auto) 0.7 % (0.2-1.0) 08/29/18 04:09 Neut # (Auto) 5.4 x10^3/uL (2.2-4.8) H 08/29/18 04:09 Lymph # (Auto) 2.6 X10^3/uL (1.3-2.9) 08/29/18 04:09 [place] # (Auto) 0.6 x10^3/uL (0.3-0.8) 08/29/18 04:09 Eos # (Auto) 0.6 x10^3/uL (0.0-0.2) H 08/29/18 04:09 Baso # (Auto) 0.1 X10^3/uL (0.0-0.1) 08/29/18 04:09 Absolute Nucleated RBC 0.0 /100WBC 08/29/18 04:09 INR Target Range - 08/27/18 19:03 INR 1.23 (0.8-1.3) 08/27/18 19:03 APTT 28.1 SECONDS (22.9-36.5) 08/27/18 19:03 PTT Comment - 08/27/18 19:03 Sodium 162 mmol/L (136-145) H* 08/29/18 04:09 Corrected Sodium 163 mmol/L (136-145) H 08/29/18 04:09 Potassium 4.2 mmol/L (3.5-5.1) 08/29/18 04:09 Chloride 132 mmol/L (98-107) H* 08/29/18 04:09 Carbon Dioxide 18.3 mmol/L (21-32) L 08/29/18 04:09 BUN 119 mg/dL (7-18) H 08/29/18 04:09 Creatinine 2.29 mg/dL (0.55-1.02) H 08/29/18 04:09 Est GFR (MDRD) Af Amer 26 (>60) L 08/29/18 04:09 Est GFR (MDRD) Non-Af 21 (>60) L 08/29/18 04:09 Glucose 145 mg/dL (65-99) H 08/29/18 04:09 POC Glucose (mg/dL) 124 mg/dL (65-99) H 08/29/18 11:27 Lactic Acid 0.7 mmol/L (0.4-2.0) 08/28/18 12:39 Calcium 8.0 mg/dL (8.5-10.1) L 08/29/18 04:09 Corrected Calcium 9.3 mg/dL (8.5-10.1) 08/29/18 04:09 Phosphorus 8.4 mg/dL (2.6-4.7) H 08/27/18 19:03 Magnesium 4.5 mg/dL (1.7-2.9) H 08/27/18 19:03 Total Bilirubin 0.30 mg/dL (0.2-1.0) 08/29/18 04:09 AST 44 Units/L (15-37) H 08/29/18 04:09 ALT 47 Units/L (12-78) 08/29/18 04:09 Alkaline Phosphatase 63 Units/L (46-116) 08/29/18 04:09 Creatine Kinase 449 Units/L (26-192) H 08/28/18 06:15 CK-MB (CK-2) 9.4 ng/mL (0-4.0) H* 08/28/18 06:15 CK/CKMB % Calc 2.1 % (<4) 08/28/18 06:15 Troponin I 0.38 ng/mL (0-1.5) 08/28/18 06:15 Total Protein 5.0 g/dL (6.4-8.2) L 08/29/18 04:09 Albumin 2.4 g/dL (3.4-5.0) L 08/29/18 04:09 Globulin 2.6 g/dL (2.5-4.5) 08/29/18 04:09 Albumin/Globulin Ratio 0.9 Ratio (1.1-2.1) L 08/29/18 04:09 Amylase 30 Units/L (25-115) 08/27/18 19:03 Lipase 328 Units/L (73-393) 08/27/18 19:03 Specimen Type Catherized urine 08/28/18 04:59 Urine Color Yellow (YELLOW) 08/28/18 04:59 Urine Appearance Turbid (CLEAR) 08/28/18 04:59 Urine pH 5.0 (5.0 - 8.0) 08/28/18 04:59 Ur Specific [place] 1.020 (1.000-1.030) 08/28/18 04:59 Urine Protein 2+ (NEGATIVE) 08/28/18 04:59 Urine Glucose (UA) Negative (NEGATIVE) 08/28/18 04:59 Urine Ketones Negative (NEGATIVE) 08/28/18 04:59 Urine Occult Blood 4+ (NEGATIVE) 08/28/18 04:59 Urine Nitrite Positive (NEGATIVE) 08/28/18 04:59 Urine Bilirubin 1+ (NEGATIVE) 08/28/18 04:59 Urine Urobilinogen Normal (NORMAL) 08/28/18 04:59 Ur Leukocyte Esterase 3+ (NEGATIVE) 08/28/18 04:59 Urine RBC Tntc /HPF (NONE SEEN) 08/28/18 04:59 Urine WBC Tntc /HPF (NONE SEEN) 08/28/18 04:59 Ur Squamous Epith Cells Few /HPF (NEGATIVE) 08/28/18 04:59 Ur Renal Epithelial Cell Few /HPF (NEGATIVE) 08/27/18 20:27 Amorphous Sediment 1+ /HPF (NEGATIVE) 08/28/18 04:59 Urine Bacteria 4+ /HPF (NEGATIVE) 08/28/18 04:59 Urine Yeast Moderate /HPF (NEGATIVE) 08/28/18 04:59 Ur Culture Indicated? Yes/culture set up 08/28/18 04:59 - Plan (1) Urinary tract infection Status: Acute Plan: CONTINUE IV HYDRATION, GENTLE. ENCOURAGE PO WATER INAKE. CONTINUE IV FORTAZ. AM LABS AND CXR (2) Hyperglycemia Status: Acute (3) Hyperkalemia Status: Acute (4) Mental status alteration Status: Acute Qualifiers: (5) Atrial fibrillation Status: Chronic (6) Alzheimer disease Status: Chronic (7) Anxiety Status: Chronic (8) Diabetes mellitus, type 2 Status: Chronic Qualifiers:
[2018-08-29] MEDS: XARELTO PO SCH (13:26)
[2018-08-29] MEDS: HumuLIN R SUBCUT PRN (16:34)
[2018-08-29] MEDS ORDERED: SNACK - Diabetic Appropriate PO SCH (20:00)
[2018-08-29] MEDS: TRICOR TAB 48 MG PO SCH (20:30)
[2018-08-29] MEDS: FORTAZ or TAZICEF VIAL INJ 500 MG in NS 25 ML IV 25 ML IV SCH (20:30)
[2018-08-29] MEDS: SNACK - Diabetic Appropriate PO SCH (20:31)
[2018-08-30 04:56] LABS: BASOPHILS % (AUTO) 0.4 % (0.2-1.0); EOSINOPHILS % (AUTO) 9.1 % (0.9-2.9); HEMATOCRIT 28.1 % (36.0-47.0); HEMOGLOBIN 9.1 g/dL (12.0-16.0); LYMPHOCYTES # (AUTO) 3.6 X10^3/uL (1.3-2.9); LYMPHOCYTES % (AUTO) 31.7 % (21.0-51.0); MEAN CORPUSCULAR HEMOGLOBIN 28.7 pg (27.0-34.0); MEAN CORPUSCULAR HGB CONC 32.4 g/dL (33.0-35.0); MEAN CORPUSCULAR VOLUME 88.7 fL (80.0-100.0); MEAN PLATELET VOLUME 12.2 fL (7.4-11.0); MONOCYTES # (AUTO) 0.7 x10^3/uL (0.3-0.8); MONOCYTES % (AUTO) 5.8 % (0.0-13.0); PLATELET COUNT 140 X10^3/uL (150.0-450.0); RED BLOOD COUNT 3.17 X10^6/uL (3.5-5.4); RED CELL DISTRIBUTION WIDTH 14.3 % (11.6-16.5); WHITE BLOOD COUNT 11.3 X10^3/uL (3.6-10.0)
[2018-08-30 05:05] LABS: ALBUMIN 2.4 g/dL (3.4-5.0); CALCIUM 8.2 mg/dL (8.5-10.1); CARBON DIOXIDE 20.7 mmol/L (21-32); COR CA(FOR HYPOALB) 9.5 mg/dL (8.5-10.1); CREATININE 1.3 mg/dL (0.55-1.02); TOTAL PROTEIN 5.2 g/dL (6.4-8.2)
[2018-08-30] MEDS ORDERED: NS 1/2 1000 ML IV 1,000 ML IV ONE (05:44)
[2018-08-30] MEDS: NS 1/2 1000 ML IV 1,000 ML IV SCH ×4 (06:04→21:47)
[2018-08-30] MEDS: MIRALAX POWDER (1 DOSE 17 G) PO SCH ×2 (08:59→21:42)
[2018-08-30] MEDS: XARELTO PO SCH (08:59)
[2018-08-30] MEDS: HEMOCYTE-PLUS PO SCH ×2 (08:59→21:46)
[2018-08-30] MEDS: MEGACE PO SCH (09:00)
[2018-08-30] MEDS: TAB-A-VITE PO SCH (09:00)
[2018-08-30] MEDS: VITAMIN C PO SCH ×2 (09:00→21:45)
[2018-08-30] MEDS: PEPCID TAB 20 MG PO SCH ×2 (09:00→21:46)
[2018-08-30] MEDS: LIPITOR TAB 20 MG PO SCH (09:01)
[2018-08-30] MEDS: ZESTRIL TAB 5 MG PO SCH ×2 (09:01→21:45)
[2018-08-30] MEDS: FLORINEF PO SCH (09:01)
[2018-08-30] MEDS: COLACE SYRUP 100 MG UDC PO SCH ×2 (09:01→21:46)
[2018-08-30] MEDS: LEVEMIR SC SCH ×2 (09:31→21:47)
--- NOTE | 2018-08-30 17:34 | DR.H&P ---
H&P - History & Physical for Day of: H&P Date: 08/27/18 - Chief Complaint Chief Complaint: HYPERNATREMIA, DEHYDRATION, UTI, LEUKOCYTOSIS - History of Present Illness History of Present Illness: IS A 87 YEAR OLD PATIENT OF OURS WHO IS A RESIDENT OF [facility]. ROUTINE LABS WERE OBTAINED TODAY AND THE SENIOR LIVING AND REVEALED THE FOLLOWING ABNORMAL LAB VALUES: WBC 19.9, SODIUM 165, POTASSIUM 5.6, CHLORIDE 128, BUN 134, CREATININE 3.30, GLUCOSE 190. SHE WAS ADMITTED TO THE HOSPITAL FOR HYPERNATREMIA, LEUKOCYTOSIS, AND DEHYDRATION. ON ARRIVAL TO THE HOSPITAL, VITALS WERE 98.0-95-16-97%-93/50. CARDIAC ENZYMES WERE OBTAINED AND REVEALED CRATINE KINASE 287, CK-MB 4.3. URINALYSIS REVEALED: WBC TNTC, RBC TNTC, BACTERIA 4+, YEAST MODERATE, LEUKOCYTES 3+, OCCULT BLOOD 4+, PROTEIN 2+. CHEST XRAY OBTAINED AND REVEALED NO ACUTE CHEST PROCESS. EKG REVEALED ATRIAL FIBRILLATION WITH HR 94. SHE WAS GIVEN TWO 1 LITER NORMAL SALINE BOLUS, THEN STARTED ON NORMAL SALINE AT 125 ML/HR. SHE WAS ALSO STARTED ON FORTAZ 500MG IV DAILY. WE PLAN TO FOLLOW UP WITH AM LABS AND CONTINUE TO MONITOR. - Past Medical History Past Medical History: Angina, Coronary Artery Disease, Hypertension, Dysl ipidemia, Diabetes, Alzheimers, Dementia, Depression, Anxiety, Anemia, COPD, GERD, Arthritis, CHF Additional Medical History: Cataracts, Dementia, Sick Sinus Syndrome, Cardiac Arrhythmia, Constipation, Gastroparesis, UTI's, Muscle Weakness, Neoplasm of Large Intestine, Sleep Apnea, Osteoarthritis - Past Surgical History Surgical History: Abdominal Surgery, Other Additional Surgical History: Pacemaker - Family History Family Medical History: Diabetes Mellitus, Heart Failure - Social History Alcohol Use: None Drug Use: None - Medications Home Medications: erythromycin base [From Erythrocin] Adverse Reaction (Verified 07/09/18 14:51) CONTINUE taking the following medications fluocinonide 1 applic TOPICAL BID 08/28/18 [History] megestrol 40 mg PO DAILY 08/28/18 [History] zinc 50 mg PO DAILY 08/28/18 [History] - Review of Systems Constitutional: Weakness Eyes: No Symptoms Reported ENT: No Symptoms Reported Respiratory: No Symptoms Reported Cardiovascular: No Symptoms Reported Gastrointestinal: Abdominal Pain Genitourinary: No Symptoms Reported Musculoskeletal: No Symptoms Reported Skin: No Symptoms Reported Neurological: No Symptoms Reported - Physical Exam Vital Signs: Temperature 99.2 F Pulse Rate [Left Brachial] 69 Respiratory Rate 18 Blood Pressure [Left Arm] 148/68 Blood Pressure [Right Calf] 135/75 Blood Pressure [Right Arm] 182/75 Blood Pressure 156/67 O2 Sat by Pulse Oximetry 98 Oriented: Person Eyes: Normal Ear: Normal Nose: Normal Throat: Normal Respiratory: Diminished Throughout Cardiovascular: Normal : Normal Auscultation: Bowel Sounds: Normal Palpation: Normal Tenderness: Suprapubic, Mild. negative: Rebound, Guarding, Rigidity Skin: Normal Musculoskeletal: Normal Psychiatric: Normal Mood Description: Calm Affect: Normal Speech Pattern: Unclear - Assessment/Plan (1) Dehydration Status: Acute Plan: NORMAL SALINE AT 125ML/HR, CONTINUE TO MONITOR (2) Urinary tract infection Qualifiers: Urinary tract infection type: acute cystitis Hematuria presence: with hematuria Qualified Code(s): N30.01 - Acute cystitis with hematuria Status: Acute Plan: FORTAZ 500MG IV DAILY, CONTINUE TO MONITOR (3) Hypernatremia Status: Acute Plan: NORMAL SALINE AT 125ML/HR, CONTINUE TO MONITOR (4) Leukocytosis Qualifiers: Leukocytosis type: unspecified Qualified Code(s): D72.829 - Elevated white blood cell count, unspecified Status: Acute Plan: FORTAZ 500MG IV DAILY, CONTINUE TO MONITOR - Allergies Allergies/Adverse Reactions: Allergies Allergy/AdvReac Type Severity Reaction Status Date / Time erythromycin base AdvReac Verified 07/09/18 14:51 [From Erythrocin]
[2018-08-30] MEDS: SNACK - Diabetic Appropriate PO SCH (20:15)
[2018-08-30] MEDS: FORTAZ or TAZICEF VIAL INJ 500 MG in NS 25 ML IV 25 ML IV SCH (21:42)
[2018-08-30] MEDS: TRICOR TAB 48 MG PO SCH (21:46)
[2018-08-31] MEDS ORDERED: NS 1/2 1000 ML IV 1,000 ML IV ONE (00:35)
[2018-08-31 05:04] LABS: BASOPHILS # (AUTO) 0.1 X10^3/uL (0.0-0.1); BASOPHILS % (AUTO) 0.5 % (0.2-1.0); HEMATOCRIT 27.5 % (36.0-47.0); LYMPHOCYTES # (AUTO) 2.9 X10^3/uL (1.3-2.9); LYMPHOCYTES % (AUTO) 25.3 % (21.0-51.0); MEAN CORPUSCULAR HGB CONC 32.7 g/dL (33.0-35.0); MEAN CORPUSCULAR VOLUME 88.6 fL (80.0-100.0); MEAN PLATELET VOLUME 11.7 fL (7.4-11.0); MONOCYTES # (AUTO) 0.5 x10^3/uL (0.3-0.8); MONOCYTES % (AUTO) 4.5 % (0.0-13.0); NEUTROPHILS % (AUTO) 60.7 % (42.0-75.0); PLATELET COUNT 132 X10^3/uL (150.0-450.0); RED BLOOD COUNT 3.11 X10^6/uL (3.5-5.4); RED CELL DISTRIBUTION WIDTH 14.3 % (11.6-16.5); WHITE BLOOD COUNT 11.6 X10^3/uL (3.6-10.0)
[2018-08-31 05:16] LABS: ALANINE AMINOTRANSFERASE 39 Units/L (12-78); ALBUMIN 2.3 g/dL (3.4-5.0); ALKALINE PHOSPHATASE 71 Units/L (46-116); ASPARTATE AMINO TRANSFERASE 28 Units/L (15-37); BLOOD UREA NITROGEN 36 mg/dL (7-18); CALCIUM 7.9 mg/dL (8.5-10.1); CARBON DIOXIDE 19.2 mmol/L (21-32); COR CA(FOR HYPOALB) 9.3 mg/dL (8.5-10.1); COR NA(FOR HYPERGLY) 151 mmol/L (136-145); CREATININE 0.96 mg/dL (0.55-1.02); SODIUM 149 mmol/L (136-145); TOTAL PROTEIN 5.2 g/dL (6.4-8.2); eGFR NON BLACK RACES 58 (>60)
[2018-08-31] MEDS: NS 1/2 1000 ML IV 1,000 ML IV SCH (06:25)
[2018-08-31 06:44] LABS: CHLORIDE 116 mmol/L (98-107)
[2018-08-31] MEDS: D5W 1000 ML IV 1,000 ML IV SCH ×2 (10:14→23:33)
[2018-08-31] MEDS: FLORINEF PO SCH (10:15)
[2018-08-31] MEDS: ZESTRIL TAB 5 MG PO SCH ×2 (10:15→21:07)
[2018-08-31] MEDS: LIPITOR TAB 20 MG PO SCH (10:15)
[2018-08-31] MEDS: COLACE SYRUP 100 MG UDC PO SCH ×2 (10:15→21:05)
[2018-08-31] MEDS: PEPCID TAB 20 MG PO SCH ×2 (10:16→21:06)
[2018-08-31] MEDS: XARELTO PO SCH (10:16)
[2018-08-31] MEDS: MEGACE PO SCH (10:16)
[2018-08-31] MEDS: HEMOCYTE-PLUS PO SCH ×2 (10:16→21:06)
[2018-08-31] MEDS: TAB-A-VITE PO SCH (10:16)
[2018-08-31] MEDS: VITAMIN C PO SCH ×2 (10:16→21:06)
[2018-08-31] MEDS: MIRALAX POWDER (1 DOSE 17 G) PO SCH ×2 (10:17→21:07)
[2018-08-31] MEDS: LEVEMIR SC SCH (10:48)
[2018-08-31] MEDS: HumuLIN R SUBCUT PRN (11:52)
[2018-08-31] MEDS: TRICOR TAB 48 MG PO SCH (21:07)
[2018-08-31] MEDS: SNACK - Diabetic Appropriate PO SCH (21:08)
[2018-08-31] MEDS: FORTAZ or TAZICEF VIAL INJ 500 MG in NS 25 ML IV 25 ML IV SCH (21:08)
[2018-09-01 05:17] LABS: BASOPHILS # (AUTO) 0.1 X10^3/uL (0.0-0.1); BASOPHILS % (AUTO) 0.7 % (0.2-1.0); EOSINOPHILS # (AUTO) 1.4 x10^3/uL (0.0-0.2); EOSINOPHILS % (AUTO) 11.9 % (0.9-2.9); HEMATOCRIT 27.9 % (36.0-47.0); LYMPHOCYTES # (AUTO) 2.5 X10^3/uL (1.3-2.9); LYMPHOCYTES % (AUTO) 22.1 % (21.0-51.0); MEAN CORPUSCULAR HEMOGLOBIN 28.4 pg (27.0-34.0); MEAN CORPUSCULAR HGB CONC 32.3 g/dL (33.0-35.0); MEAN CORPUSCULAR VOLUME 87.9 fL (80.0-100.0); MEAN PLATELET VOLUME 11.7 fL (7.4-11.0); MONOCYTES # (AUTO) 0.5 x10^3/uL (0.3-0.8); MONOCYTES % (AUTO) 4.6 % (0.0-13.0); NEUTROPHILS % (AUTO) 60.7 % (42.0-75.0); PLATELET COUNT 126 X10^3/uL (150.0-450.0); RED BLOOD COUNT 3.18 X10^6/uL (3.5-5.4); WHITE BLOOD COUNT 11.5 X10^3/uL (3.6-10.0)
[2018-09-01 07:40] LABS: ALANINE AMINOTRANSFERASE 30 Units/L (12-78); ALBUMIN 2.3 g/dL (3.4-5.0); ALKALINE PHOSPHATASE 68 Units/L (46-116); ASPARTATE AMINO TRANSFERASE 23 Units/L (15-37); BLOOD UREA NITROGEN 18 mg/dL (7-18); CARBON DIOXIDE 16.7 mmol/L (21-32); COR CA(FOR HYPOALB) 9.4 mg/dL (8.5-10.1); COR NA(FOR HYPERGLY) 145 mmol/L (136-145); CREATININE 0.82 mg/dL (0.55-1.02); SODIUM 144 mmol/L (136-145); TOTAL PROTEIN 5.3 g/dL (6.4-8.2); eGFR NON BLACK RACES > 60 (>60)
[2018-09-01 07:43] LABS: CHLORIDE 115 mmol/L (98-107)
--- NOTE | 2018-09-01 09:09 | PCM.PROG ---
Progress Note - Progress Note for Day of Date of Exam: 08/31/18 - Subjective Subjective: WAS ADMITTED FOR DEHYDRATION, LEUKOCYTOSIS, HYPERNATREMIA, AND A URINARY TRACT INFECTION. TODAY, SHE IS LYING IN BED WITH EYES OPEN ON MORNING ROUNDS. SHE DOES NOT RESPOND VERBALLY WHEN SPOKEN TO, BUT DOES MAKE EYE CONTACT. ON EXAMINATION, HEART IS REGULAR IN RATE AND RHYTHM. BILA TERAL LUNGS ARE NOTED WITH DIMINISHED LUNG SOUNDS THROUGHOUT. ABDOMEN IS ROUND, SOFT, AND NON-TENDER WITH NORMAL BOWEL SOUNDS NOTED IN ALL QUADRNATS. HER VITALS THIS MORNING ARE 97.1-78-20-99%-172/68. LABS WERE OBTAINED THIS MORNING. ABNORMAL LAB VALUES INCLUDE THE FOLLOWING: WBC 13.1, HGB 10.5, HCT 33.5, SODIUM 167, POTASSIUM 5.2, CHLORIDE 133, CARBON DIOXIDE 20.3, BUN 171, CREATININE 4.77, GLUCOSE 111, CREATINE KINASE 449, CK-MB 9.4, TOTAL PROTEIN 5.9, ALBUMIN 2.9. BLOOD AND URINE CULTURES ARE PENDING. SHE IS CURRENTLY RECEVING IV ANTIBIOTICS AND NORMAL SALINE AT 125ML/HR. WE WILL CONTINUE WITH CURRENT PLAN OF CARE TODAY. OTHERWISE, WE WILL FOLLOW UP WITH AM LABS AND CONTINUE TO MONITOR. - Past Medical Family Social History Past Med/Fam/Surg Hx: No changes since H&P Allergies: Allergies erythromycin base [From Erythrocin] Adverse Reaction (Verified 07/09/18 14:51) - Review of Systems ROS: No change since H&P - Vital Signs and I&O's Vital Signs: Temperature 97.9 F Pulse Rate [Right Brachial] 65 Pulse Rate [Left Brachial] 69 Respiratory Rate 25 Blood Pressure [Left Arm] 148/68 Blood Pressure [Right Calf] 135/75 Blood Pressure [Right Arm] 143/56 Blood Pressure 156/67 O2 Sat by Pulse Oximetry 99 Intake and Output: Intake & Output 08/29/18 08/30/18 08/31/18 09/01/18 11:59 11:59 11:59 11:59 Intake Total 2535 / 2535 2770 / 2770 1308 / 1308 120 / 120 Output Total 1250 / 1250 2375 / 2375 1225 / 1225 Balance 1285 / 1285 395 / 395 83 / 83 120 / 120 - Physical Exam Oriented: Person Eyes: Normal Ear: Normal Nose: Normal Throat: Normal Respiratory: Diminished Cardiovascular: Normal : Normal Auscultation: Bowel Sounds: Normal Palpation: Normal Tenderness: Suprapubic, Mild. negative: Rebound, Guarding, Rigidity Skin: Normal Musculoskeletal: Normal Psychiatric: Normal Mood Description: Calm Affect: Normal Speech Pattern: Aphasic - Laboratory and Diagnostics Result Diagrams: 09/01/18 04:17 09/01/18 04:17 Labs: 08/27/18 20:27 Urine,Catheterized Urine Culture - Final Klebsiella Pneumoniae 08/27/18 19:10 Blood Blood Culture - Preliminary 08/27/18 19:03 Blood Blood Culture - Preliminary Laboratory WBC 11.5 X10^3/uL (3.6-10.0) H 09/01/18 04:17 RBC 3.18 X10^6/uL (3.5-5.4) L 09/01/18 04:17 Hgb 9.0 g/dL (12.0-16.0) L 09/01/18 04:17 Hct 27.9 % (36.0-47.0) L 09/01/18 04:17 MCV 87.9 fL (80.0-100.0) 09/01/18 04:17 MCH 28.4 pg (27.0-34.0) 09/01/18 04:17 MCHC 32.3 g/dL (33.0-35.0) L 09/01/18 04:17 RDW 14.0 % (11.6-16.5) 09/01/18 04:17 Plt Count 126 X10^3/uL (150.0-450.0) L 09/01/18 04:17 MPV 11.7 fL (7.4-11.0) H 09/01/18 04:17 Neut % (Auto) 60.7 % (42.0-75.0) 09/01/18 04:17 Lymph % (Auto) 22.1 % (21.0-51.0) 09/01/18 04:17 [place] % (Auto) 4.6 % (0.0-13.0) 09/01/18 04:17 Eos % (Auto) 11.9 % (0.9-2.9) H 09/01/18 04:17 Baso % (Auto) 0.7 % (0.2-1.0) 09/01/18 04:17 Neut # (Auto) 7.0 x10^3/uL (2.2-4.8) H 09/01/18 04:17 Lymph # (Auto) 2.5 X10^3/uL (1.3-2.9) 09/01/18 04:17 [place] # (Auto) 0.5 x10^3/uL (0.3-0.8) 09/01/18 04:17 Eos # (Auto) 1.4 x10^3/uL (0.0-0.2) H 09/01/18 04:17 Baso # (Auto) 0.1 X10^3/uL (0.0-0.1) 09/01/18 04:17 Absolute Nucleated RBC 0.0 /100WBC 09/01/18 04:17 INR Target Range - 08/27/18 19:03 INR 1.23 (0.8-1.3) 08/27/18 19:03 APTT 28.1 SECONDS (22.9-36.5) 08/27/18 19:03 PTT Comment - 08/27/18 19:03 Sodium 144 mmol/L (136-145) 09/01/18 04:17 Corrected Sodium 145 mmol/L (136-145) 09/01/18 04:17 Potassium 3.1 mmol/L (3.5-5.1) L 09/01/18 04:17 Chloride 115 mmol/L (98-107) H* 09/01/18 04:17 Carbon Dioxide 16.7 mmol/L (21-32) L 09/01/18 04:17 BUN 18 mg/dL (7-18) 09/01/18 04:17 Creatinine 0.82 mg/dL (0.55-1.02) 09/01/18 04:17 Est GFR (MDRD) Af Amer > 60 (>60) 09/01/18 04:17 Est GFR (MDRD) Non-Af > 60 (>60) 09/01/18 04:17 Glucose 140 mg/dL (65-99) H 09/01/18 04:17 POC Glucose (mg/dL) 136 mg/dL (65-99) H 09/01/18 05:16 Lactic Acid 0.7 mmol/L (0.4-2.0) 08/28/18 12:39 Calcium 8.0 mg/dL (8.5-10.1) L 09/01/18 04:17 Corrected Calcium 9.4 mg/dL (8.5-10.1) 09/01/18 04:17 Phosphorus 8.4 mg/dL (2.6-4.7) H 08/27/18 19:03 Magnesium 4.5 mg/dL (1.7-2.9) H 08/27/18 19:03 Total Bilirubin 0.40 mg/dL (0.2-1.0) 09/01/18 04:17 AST 23 Units/L (15-37) 09/01/18 04:17 ALT 30 Units/L (12-78) 09/01/18 04:17 Alkaline Phosphatase 68 Units/L (46-116) 09/01/18 04:17 Creatine Kinase 449 Units/L (26-192) H 08/28/18 06:15 CK-MB (CK-2) 9.4 ng/mL (0-4.0) H* 08/28/18 06:15 CK/CKMB % Calc 2.1 % (<4) 08/28/18 06:15 Troponin I 0.38 ng/mL (0-1.5) 08/28/18 06:15 Total Protein 5.3 g/dL (6.4-8.2) L 09/01/18 04:17 Albumin 2.3 g/dL (3.4-5.0) L 09/01/18 04:17 Globulin 3.0 g/dL (2.5-4.5) 09/01/18 04:17 Albumin/Globulin Ratio 0.8 Ratio (1.1-2.1) L 09/01/18 04:17 Amylase 30 Units/L (25-115) 08/27/18 19:03 Lipase 328 Units/L (73-393) 08/27/18 19:03 Cortisol 43.6 ug/dL 08/27/18 19:03 Specimen Type Catherized urine 08/28/18 04:59 Urine Color Yellow (YELLOW) 08/28/18 04:59 Urine Appearance Turbid (CLEAR) 08/28/18 04:59 Urine pH 5.0 (5.0 - 8.0) 08/28/18 04:59 Ur Specific [place] 1.020 (1.000-1.030) 08/28/18 04:59 Urine Protein 2+ (NEGATIVE) 08/28/18 04:59 Urine Glucose (UA) Negative (NEGATIVE) 08/28/18 04:59 Urine Ketones Negative (NEGATIVE) 08/28/18 04:59 Urine Occult Blood 4+ (NEGATIVE) 08/28/18 04:59 Urine Nitrite Positive (NEGATIVE) 08/28/18 04:59 Urine Bilirubin 1+ (NEGATIVE) 08/28/18 04:59 Urine Urobilinogen Normal (NORMAL) 08/28/18 04:59 Ur Leukocyte Esterase 3+ (NEGATIVE) 08/28/18 04:59 Urine RBC Tntc /HPF (NONE SEEN) 08/28/18 04:59 Urine WBC Tntc /HPF (NONE SEEN) 08/28/18 04:59 Ur Squamous Epith Cells Few /HPF (NEGATIVE) 08/28/18 04:59 Ur Renal Epithelial Cell Few /HPF (NEGATIVE) 08/27/18 20:27 Amorphous Sediment 1+ /HPF (NEGATIVE) 08/28/18 04:59 Urine Bacteria 4+ /HPF (NEGATIVE) 08/28/18 04:59 Urine Yeast Moderate /HPF (NEGATIVE) 08/28/18 04:59 Ur Culture Indicated? Yes/culture set up 08/28/18 04:59 - Plan (1) Dehydration Status: Acute Plan: NORMAL SALINE AT 125ML/HR, CONTINUE TO MONITOR (2) Urinary tract infection Status: Acute Qualifiers: Urinary tract infection type: acute cystitis Hematuria presence: with hematuria Qualified Code(s): N30.01 - Acute cystitis with hematuria Plan: FORTAZ 500MG IV DAILY, CONTINUE TO MONITOR (3) Hypernatremia Status: Acute Plan: NORMAL SALINE AT 125ML/HR, CONTINUE TO MONITOR (4) Leukocytosis Status: Acute Qualifiers: Leukocytosis type: unspecified Qualified Code(s): D72.829 - Elevated white blood cell count, unspecified Plan: FORTAZ 500MG IV DAILY, CONTINUE TO MONITOR
[2018-09-01] MEDS ORDERED: MICRO K EXTEN CAP 10 MEQ PO PRN ×2 (09:40→10:59)
[2018-09-01] MEDS ORDERED: POTASSIUM CHL 60 MEQ/NS 0.45% 500 ML IV PRN ×2 (09:40→10:59)
[2018-09-01] MEDS ORDERED: POTASSIUM CHLORIDE LIQ 20 MEQ UDC PO PRN ×2 (09:40→10:59)
[2018-09-01] MEDS ORDERED: K-RIDER 10 MEQ/NS 100 ML 10 MEQ/100 ML BAG IV PRN ×2 (09:40→10:59)
[2018-09-01] MEDS ORDERED: K-DUR TAB 20 MEQ PO PRN ×2 (09:40→10:59)
[2018-09-01] MEDS ORDERED: POTASSIUM CHL 40 MEQ/NS 0.45% 500 ML IV PRN ×2 (09:40→10:59)
[2018-09-01] MEDS ORDERED: KLOR-CON PO PRN ×2 (09:40→10:59)
[2018-09-01] MEDS: VITAMIN C PO SCH ×2 (09:50→20:55)
[2018-09-01] MEDS: COLACE SYRUP 100 MG UDC PO SCH ×2 (09:50→20:54)
[2018-09-01] MEDS: FLORINEF PO SCH (09:50)
[2018-09-01] MEDS: PEPCID TAB 20 MG PO SCH ×2 (09:50→20:56)
[2018-09-01] MEDS: HEMOCYTE-PLUS PO SCH ×2 (09:50→20:55)
[2018-09-01] MEDS: MEGACE PO SCH (09:50)
[2018-09-01] MEDS: TAB-A-VITE PO SCH (09:51)
[2018-09-01] MEDS: LIPITOR TAB 20 MG PO SCH (09:51)
[2018-09-01] MEDS: ZESTRIL TAB 5 MG PO SCH ×2 (09:52→20:55)
[2018-09-01] MEDS: MIRALAX POWDER (1 DOSE 17 G) PO SCH ×2 (09:53→20:56)
[2018-09-01] MEDS ORDERED: MAGNESIUM SULFATE 1 GRAM/100 mL PREMIX 2 G/200 ML BAG IV ONE (10:19)
[2018-09-01] MEDS: MAGNESIUM SULFATE 1 GRAM/100 mL PREMIX 1 GM/100 ML BAG IV PRN ×2 (10:46→11:48)
--- NOTE | 2018-09-01 11:22 | PCM.PROG ---
Progress Note - Progress Note for Day of Date of Exam: 08/31/18 - Subjective Subjective: WAS ADMITTED FOR DEHYDRATION, LEUKOCYTOSIS, HYPERNATREMIA, AND A URINARY TRACT INFECTION. TODAY, SHE IS LYING IN BED WITH EYES OPEN ON MORNING ROUNDS. SHE CONTINUES WITH DECREASED RESPONSIVENESS, BUT IS MORE ALERT THAN WHEN WE LAST SAW HER. ON EXAMINATION, HEART IS REGULAR IN RATE AND RHYTHM. BILATERAL LUNGS ARE NOTED WITH DIMINISHED LUNG SOUNDS THROUGHOUT. ABDOMEN IS ROUND, SOFT, AND NON-TENDER WITH NORMAL BOWEL SOUNDS NOTED IN ALL QUADRNATS. HER VITALS THIS MORNING ARE 98.8-70-19-98%-159/72. LABS WERE OBTAINED THIS MORNING. ABNORMAL LAB VALUES INCLUDE THE FOLLOWING: WBC 11.6, rbc 3.11, hgb 9.0, hct 27.5, plt count 132, sodium 149, chloride 116, carbon dioxide 19.2, bun 36, glucose 195, calcium 7.9, total protein 5.2, albumin 2.3. URINE CULTURE REPORTED GROWTH OF KLEBSIELLA PNEUMONIAE. SHE IS CURRENTLY RECEVING IV FORTAZ AND NORMAL SALINE AT 125ML/HR FOR HYDRATION. HER KIDNEY FUNCTION HAS GREATLY IMPROVED SINCE ADMISSION. WE WILL CONTINUE WITH CURRENT PLAN OF CARE TODAY, BUT CHANGE IV FLUIDS TO D5W TO HELP LOWER HER SODIUM. OTHERWISE, WE WILL FOLLOW UP WITH AM LABS AND CONTINUE TO MONITOR. - Past Medical Family Social History Past Med/Fam/Surg Hx: No changes since H&P Allergies: Allergies erythromycin base [From Erythrocin] Adverse Reaction (Verified 07/09/18 14:51) - Review of Systems ROS: No change since H&P - Vital Signs and I&O's Vital Signs: Temperature 97.9 F Pulse Rate [Right Brachial] 65 Pulse Rate [Left Brachial] 69 Respiratory Rate 25 Blood Pressure [Left Arm] 148/68 Blood Pressure [Right Calf] 135/75 Blood Pressure [Right Arm] 143/56 Blood Pressure 156/67 O2 Sat by Pulse Oximetry 99 Intake and Output: Intake & Output 08/29/18 08/30/18 08/31/18 09/01/18 11:59 11:59 11:59 11:59 Intake Total 2535 / 2535 2770 / 2770 1308 / 1308 120 / 120 Output Total 1250 / 1250 2375 / 2375 1225 / 1225 Balance 1285 / 1285 395 / 395 83 / 83 120 / 120 - Physical Exam Oriented: Person Eyes: Normal Ear: Normal Nose: Normal Throat: Normal Respiratory: Diminished Cardiovascular: Normal : Normal Auscultation: Bowel Sounds: Normal Palpation: Normal Tenderness: Suprapubic, Mild. negative: Rebound, Guarding, Rigidity Skin: Normal Musculoskeletal: Normal Psychiatric: Normal Mood Description: Calm Affect: Normal Speech Pattern: Aphasic - Laboratory and Diagnostics Result Diagrams: 09/01/18 04:17 09/01/18 04:17 Labs: 08/27/18 20:27 Urine,Catheterized Urine Culture - Final Klebsiella Pneumoniae 08/27/18 19:10 Blood Blood Culture - Preliminary 08/27/18 19:03 Blood Blood Culture - Preliminary Laboratory WBC 11.5 X10^3/uL (3.6-10.0) H 09/01/18 04:17 RBC 3.18 X10^6/uL (3.5-5.4) L 09/01/18 04:17 Hgb 9.0 g/dL (12.0-16.0) L 09/01/18 04:17 Hct 27.9 % (36.0-47.0) L 09/01/18 04:17 MCV 87.9 fL (80.0-100.0) 09/01/18 04:17 MCH 28.4 pg (27.0-34.0) 09/01/18 04:17 MCHC 32.3 g/dL (33.0-35.0) L 09/01/18 04:17 RDW 14.0 % (11.6-16.5) 09/01/18 04:17 Plt Count 126 X10^3/uL (150.0-450.0) L 09/01/18 04:17 MPV 11.7 fL (7.4-11.0) H 09/01/18 04:17 Neut % (Auto) 60.7 % (42.0-75.0) 09/01/18 04:17 Lymph % (Auto) 22.1 % (21.0-51.0) 09/01/18 04:17 [place] % (Auto) 4.6 % (0.0-13.0) 09/01/18 04:17 Eos % (Auto) 11.9 % (0.9-2.9) H 09/01/18 04:17 Baso % (Auto) 0.7 % (0.2-1.0) 09/01/18 04:17 Neut # (Auto) 7.0 x10^3/uL (2.2-4.8) H 09/01/18 04:17 Lymph # (Auto) 2.5 X10^3/uL (1.3-2.9) 09/01/18 04:17 [place] # (Auto) 0.5 x10^3/uL (0.3-0.8) 09/01/18 04:17 Eos # (Auto) 1.4 x10^3/uL (0.0-0.2) H 09/01/18 04:17 Baso # (Auto) 0.1 X10^3/uL (0.0-0.1) 09/01/18 04:17 Absolute Nucleated RBC 0.0 /100WBC 09/01/18 04:17 INR Target Range - 08/27/18 19:03 INR 1.23 (0.8-1.3) 08/27/18 19:03 APTT 28.1 SECONDS (22.9-36.5) 08/27/18 19:03 PTT Comment - 08/27/18 19:03 Sodium 144 mmol/L (136-145) 09/01/18 04:17 Corrected Sodium 145 mmol/L (136-145) 09/01/18 04:17 Potassium 3.1 mmol/L (3.5-5.1) L 09/01/18 04:17 Chloride 115 mmol/L (98-107) H* 09/01/18 04:17 Carbon Dioxide 16.7 mmol/L (21-32) L 09/01/18 04:17 BUN 18 mg/dL (7-18) 09/01/18 04:17 Creatinine 0.82 mg/dL (0.55-1.02) 09/01/18 04:17 Est GFR (MDRD) Af Amer > 60 (>60) 09/01/18 04:17 Est GFR (MDRD) Non-Af > 60 (>60) 09/01/18 04:17 Glucose 140 mg/dL (65-99) H 09/01/18 04:17 POC Glucose (mg/dL) 136 mg/dL (65-99) H 09/01/18 05:16 Lactic Acid 0.7 mmol/L (0.4-2.0) 08/28/18 12:39 Calcium 8.0 mg/dL (8.5-10.1) L 09/01/18 04:17 Corrected Calcium 9.4 mg/dL (8.5-10.1) 09/01/18 04:17 Phosphorus 8.4 mg/dL (2.6-4.7) H 08/27/18 19:03 Magnesium 1.6 mg/dL (1.7-2.9) L 09/01/18 04:17 Total Bilirubin 0.40 mg/dL (0.2-1.0) 09/01/18 04:17 AST 23 Units/L (15-37) 09/01/18 04:17 ALT 30 Units/L (12-78) 09/01/18 04:17 Alkaline Phosphatase 68 Units/L (46-116) 09/01/18 04:17 Creatine Kinase 449 Units/L (26-192) H 08/28/18 06:15 CK-MB (CK-2) 9.4 ng/mL (0-4.0) H* 08/28/18 06:15 CK/CKMB % Calc 2.1 % (<4) 08/28/18 06:15 Troponin I 0.38 ng/mL (0-1.5) 08/28/18 06:15 Total Protein 5.3 g/dL (6.4-8.2) L 09/01/18 04:17 Albumin 2.3 g/dL (3.4-5.0) L 09/01/18 04:17 Globulin 3.0 g/dL (2.5-4.5) 09/01/18 04:17 Albumin/Globulin Ratio 0.8 Ratio (1.1-2.1) L 09/01/18 04:17 Amylase 30 Units/L (25-115) 08/27/18 19:03 Lipase 328 Units/L (73-393) 08/27/18 19:03 Cortisol 43.6 ug/dL 08/27/18 19:03 Specimen Type Catherized urine 08/28/18 04:59 Urine Color Yellow (YELLOW) 08/28/18 04:59 Urine Appearance Turbid (CLEAR) 08/28/18 04:59 Urine pH 5.0 (5.0 - 8.0) 08/28/18 04:59 Ur Specific [place] 1.020 (1.000-1.030) 08/28/18 04:59 Urine Protein 2+ (NEGATIVE) 08/28/18 04:59 Urine Glucose (UA) Negative (NEGATIVE) 08/28/18 04:59 Urine Ketones Negative (NEGATIVE) 08/28/18 04:59 Urine Occult Blood 4+ (NEGATIVE) 08/28/18 04:59 Urine Nitrite Positive (NEGATIVE) 08/28/18 04:59 Urine Bilirubin 1+ (NEGATIVE) 08/28/18 04:59 Urine Urobilinogen Normal (NORMAL) 08/28/18 04:59 Ur Leukocyte Esterase 3+ (NEGATIVE) 08/28/18 04:59 Urine RBC Tntc /HPF (NONE SEEN) 08/28/18 04:59 Urine WBC Tntc /HPF (NONE SEEN) 08/28/18 04:59 Ur Squamous Epith Cells Few /HPF (NEGATIVE) 08/28/18 04:59 Ur Renal Epithelial Cell Few /HPF (NEGATIVE) 08/27/18 20:27 Amorphous Sediment 1+ /HPF (NEGATIVE) 08/28/18 04:59 Urine Bacteria 4+ /HPF (NEGATIVE) 08/28/18 04:59 Urine Yeast Moderate /HPF (NEGATIVE) 08/28/18 04:59 Ur Culture Indicated? Yes/culture set up 08/28/18 04:59 - Plan (1) Dehydration Status: Acute Plan: D5W AT 50ML/HR, CONTINUE TO MONITOR (2) Urinary tract infection Status: Acute Qualifiers: Urinary tract infection type: acute cystitis Hematuria presence: with hematuria Qualified Code(s): N30.01 - Acute cystitis with hematuria Plan: FORTAZ 500MG IV DAILY, CONTINUE TO MONITOR (3) Hypernatremia Status: Acute Plan: D5W AT 50ML/HR, CONTINUE TO MONITOR (4) Leukocytosis Status: Acute Qualifiers: Leukocytosis type: unspecified Qualified Code(s): D72.829 - Elevated white blood cell count, unspecified Plan: FORTAZ 500MG IV DAILY, CONTINUE TO MONITOR
[2018-09-01] MEDS: HumuLIN R SUBCUT PRN (11:36)
[2018-09-01] MEDS: D5W 1000 ML IV 1,000 ML IV SCH (11:46)
[2018-09-01] MEDS ORDERED: POTASSIUM CHL 40 MEQ/NS 0.45% 500 ML 40 MEQ/500 ML BAG IV NR (13:00)
[2018-09-01] MEDS: SNACK - Diabetic Appropriate PO SCH (20:54)
[2018-09-01] MEDS: TRICOR TAB 48 MG PO SCH (20:55)
[2018-09-01] MEDS: FORTAZ or TAZICEF VIAL INJ 500 MG in NS 25 ML IV 25 ML IV SCH (21:10)
--- NOTE | 2018-09-01 21:23 | PCM.PROG ---
Progress Note - Progress Note for Day of Date of Exam: 09/01/18 - Subjective Subjective: WAS ADMITTED FOR DEHYDRATION, LEUKOCYTOSIS, HYPERNATREMIA, AND A URINARY TRACT INFECTION. TODAY, SHE IS LYING IN BED WITH EYES OPEN ON MORNING ROUNDS. SHE MAKES EYE CONTACT UPON SPEAKING TO HER, BUT DOES NOT VERBALLY RESPOND. ON EXAMINATION, HEART IS REGULAR IN RATE AND RHYTHM. BILATERAL LUNGS ARE NOTED WITH DIMINISHED LUNG SOUNDS THROUGHOUT. ABDOMEN IS ROUND, SOFT, AND NON-TENDER WITH NORMAL BOWEL SOUNDS NOTED IN ALL QUADRNATS. HER VITALS THIS MORNING ARE 97.9-65-25-99%-143/56. LABS WERE OBTAINED THIS MORNING. ABNORMAL LAB VALUES INCLUDE THE FOLLOWING: WBC 11.5, RBC 3.18, HGB 9.0, HCT 27.9, PLT COUNT 126, POTASSIUM 3.1, CHLORIDE 115, CARBON DIOXIDE 16.7, GLUCOSE 140, CALCIUM 8.0, MAGNESIUM 1.6, TOTAL PROTEIN 5.3, ALBUMIN 2.3. URINE CULTURE REPORTED GROWTH OF KLEBSIELLA PNEUMONIAE. SHE IS CURRENTLY RECEVING IV FORTAZ AND NORMAL SALINE AT 125ML/HR FOR HYDRATION. HER KIDNEY FUNCTION HAS RETURNED TO NORMAL. WE WILL ADMINISTER K-RIDERS AND MAGNESIUM RIDERS PER PROTOCOL TODAY. OTHERWISE, WE WILL CONTINUE WITH CURRENT PLAN OF CARE. SHE IS SCHEDULED FOR PEG TUBE PLACEMENT ON FRIDAY. WE WILL FOLLOW UP WITH AM LABS AND CONTINUE TO MONITOR. - Past Medical Family Social History Past Med/Fam/Surg Hx: No changes since H&P Allergies: Allergies erythromycin base [From Erythrocin] Adverse Reaction (Verified 07/09/18 14:51) - Review of Systems ROS: No change since H&P - Vital Signs and I&O's Vital Signs: Temperature 97.7 F Pulse Rate [Right Brachial] 67 Pulse Rate [Left Brachial] 69 Respiratory Rate 20 Blood Pressure [Left Arm] 148/68 Blood Pressure [Right Calf] 135/75 Blood Pressure [Right Arm] 151/58 Blood Pressure 156/67 O2 Sat by Pulse Oximetry 99 Intake and Output: Intake & Output 08/30/18 08/31/18 09/01/18 09/02/18 11:59 11:59 11:59 11:59 Intake Total 2770 / 2770 1308 / 1308 120 / 120 719 / 719 Output Total 2375 / 2375 1225 / 1225 Balance 395 / 395 83 / 83 120 / 120 719 / 719 - Physical Exam Oriented: Person Eyes: Normal Ear: Normal Nose: Normal Throat: Normal Respiratory: Diminished Cardiovascular: Normal : Normal Auscultation: Bowel Sounds: Normal Palpation: Normal Tenderness: Suprapubic, Mild. negative: Rebound, Guarding, Rigidity Skin: Normal Musculoskeletal: Normal Psychiatric: Normal Mood Description: Calm Affect: Normal Speech Pattern: Aphasic - Laboratory and Diagnostics Result Diagrams: 09/01/18 04:17 09/01/18 20:35 Labs: 08/27/18 20:27 Urine,Catheterized Urine Culture - Final Klebsiella Pneumoniae 08/27/18 19:10 Blood Blood Culture - Preliminary 08/27/18 19:03 Blood Blood Culture - Preliminary Laboratory WBC 11.5 X10^3/uL (3.6-10.0) H 09/01/18 04:17 RBC 3.18 X10^6/uL (3.5-5.4) L 09/01/18 04:17 Hgb 9.0 g/dL (12.0-16.0) L 09/01/18 04:17 Hct 27.9 % (36.0-47.0) L 09/01/18 04:17 MCV 87.9 fL (80.0-100.0) 09/01/18 04:17 MCH 28.4 pg (27.0-34.0) 09/01/18 04:17 MCHC 32.3 g/dL (33.0-35.0) L 09/01/18 04:17 RDW 14.0 % (11.6-16.5) 09/01/18 04:17 Plt Count 126 X10^3/uL (150.0-450.0) L 09/01/18 04:17 MPV 11.7 fL (7.4-11.0) H 09/01/18 04:17 Neut % (Auto) 60.7 % (42.0-75.0) 09/01/18 04:17 Lymph % (Auto) 22.1 % (21.0-51.0) 09/01/18 04:17 [place] % (Auto) 4.6 % (0.0-13.0) 09/01/18 04:17 Eos % (Auto) 11.9 % (0.9-2.9) H 09/01/18 04:17 Baso % (Auto) 0.7 % (0.2-1.0) 09/01/18 04:17 Neut # (Auto) 7.0 x10^3/uL (2.2-4.8) H 09/01/18 04:17 Lymph # (Auto) 2.5 X10^3/uL (1.3-2.9) 09/01/18 04:17 [place] # (Auto) 0.5 x10^3/uL (0.3-0.8) 09/01/18 04:17 Eos # (Auto) 1.4 x10^3/uL (0.0-0.2) H 09/01/18 04:17 Baso # (Auto) 0.1 X10^3/uL (0.0-0.1) 09/01/18 04:17 Absolute Nucleated RBC 0.0 /100WBC 09/01/18 04:17 INR Target Range - 08/27/18 19:03 INR 1.23 (0.8-1.3) 08/27/18 19:03 APTT 28.1 SECONDS (22.9-36.5) 08/27/18 19:03 PTT Comment - 08/27/18 19:03 Sodium 144 mmol/L (136-145) 09/01/18 04:17 Corrected Sodium 145 mmol/L (136-145) 09/01/18 04:17 Potassium 3.7 mmol/L (3.5-5.1) 09/01/18 20:35 Chloride 115 mmol/L (98-107) H* 09/01/18 04:17 Carbon Dioxide 16.7 mmol/L (21-32) L 09/01/18 04:17 BUN 18 mg/dL (7-18) 09/01/18 04:17 Creatinine 0.82 mg/dL (0.55-1.02) 09/01/18 04:17 Est GFR (MDRD) Af Amer > 60 (>60) 09/01/18 04:17 Est GFR (MDRD) Non-Af > 60 (>60) 09/01/18 04:17 Glucose 140 mg/dL (65-99) H 09/01/18 04:17 POC Glucose (mg/dL) 118 mg/dL (65-99) H 09/01/18 21:04 Lactic Acid 0.7 mmol/L (0.4-2.0) 08/28/18 12:39 Calcium 8.0 mg/dL (8.5-10.1) L 09/01/18 04:17 Corrected Calcium 9.4 mg/dL (8.5-10.1) 09/01/18 04:17 Phosphorus 8.4 mg/dL (2.6-4.7) H 08/27/18 19:03 Magnesium 1.6 mg/dL (1.7-2.9) L 09/01/18 04:17 Total Bilirubin 0.40 mg/dL (0.2-1.0) 09/01/18 04:17 AST 23 Units/L (15-37) 09/01/18 04:17 ALT 30 Units/L (12-78) 09/01/18 04:17 Alkaline Phosphatase 68 Units/L (46-116) 09/01/18 04:17 Creatine Kinase 449 Units/L (26-192) H 08/28/18 06:15 CK-MB (CK-2) 9.4 ng/mL (0-4.0) H* 08/28/18 06:15 CK/CKMB % Calc 2.1 % (<4) 08/28/18 06:15 Troponin I 0.38 ng/mL (0-1.5) 08/28/18 06:15 Total Protein 5.3 g/dL (6.4-8.2) L 09/01/18 04:17 Albumin 2.3 g/dL (3.4-5.0) L 09/01/18 04:17 Globulin 3.0 g/dL (2.5-4.5) 09/01/18 04:17 Albumin/Globulin Ratio 0.8 Ratio (1.1-2.1) L 09/01/18 04:17 Amylase 30 Units/L (25-115) 08/27/18 19:03 Lipase 328 Units/L (73-393) 08/27/18 19:03 Cortisol 43.6 ug/dL 08/27/18 19:03 Specimen Type Catherized urine 08/28/18 04:59 Urine Color Yellow (YELLOW) 08/28/18 04:59 Urine Appearance Turbid (CLEAR) 08/28/18 04:59 Urine pH 5.0 (5.0 - 8.0) 08/28/18 04:59 Ur Specific [place] 1.020 (1.000-1.030) 08/28/18 04:59 Urine Protein 2+ (NEGATIVE) 08/28/18 04:59 Urine Glucose (UA) Negative (NEGATIVE) 08/28/18 04:59 Urine Ketones Negative (NEGATIVE) 08/28/18 04:59 Urine Occult Blood 4+ (NEGATIVE) 08/28/18 04:59 Urine Nitrite Positive (NEGATIVE) 08/28/18 04:59 Urine Bilirubin 1+ (NEGATIVE) 08/28/18 04:59 Urine Urobilinogen Normal (NORMAL) 08/28/18 04:59 Ur Leukocyte Esterase 3+ (NEGATIVE) 08/28/18 04:59 Urine RBC Tntc /HPF (NONE SEEN) 08/28/18 04:59 Urine WBC Tntc /HPF (NONE SEEN) 08/28/18 04:59 Ur Squamous Epith Cells Few /HPF (NEGATIVE) 08/28/18 04:59 Ur Renal Epithelial Cell Few /HPF (NEGATIVE) 08/27/18 20:27 Amorphous Sediment 1+ /HPF (NEGATIVE) 08/28/18 04:59 Urine Bacteria 4+ /HPF (NEGATIVE) 08/28/18 04:59 Urine Yeast Moderate /HPF (NEGATIVE) 08/28/18 04:59 Ur Culture Indicated? Yes/culture set up 08/28/18 04:59 - Plan (1) Dehydration Status: Acute Plan: D5W AT 50ML/HR, CONTINUE TO MONITOR (2) Urinary tract infection Status: Acute Qualifiers: Urinary tract infection type: acute cystitis Hematuria presence: with hematuria Qualified Code(s): N30.01 - Acute cystitis with hematuria Plan: FORTAZ 500MG IV DAILY, CONTINUE TO MONITOR (3) Hypernatremia Status: Acute Plan: D5W AT 50ML/HR, CONTINUE TO MONITOR (4) Leukocytosis Status: Acute Qualifiers: Leukocytosis type: unspecified Qualified Code(s): D72.829 - Elevated white blood cell count, unspecified Plan: FORTAZ 500MG IV DAILY, CONTINUE TO MONITOR (5) Failure to thrive Status: Acute Qualifiers: Failure to thrive age range: in adult Qualified Code(s): R62.7 - Adult failure to thrive Plan: PEG TUBE FRIDAY
[2018-09-01] MEDS: NORCO 5/325 MG TAB PO PRN (22:54)
[2018-09-02] MEDS: D5W 1000 ML IV 1,000 ML IV SCH ×2 (00:59→14:17)
[2018-09-02 05:13] LABS: BASOPHILS # (AUTO) 0.1 X10^3/uL (0.0-0.1); BASOPHILS % (AUTO) 0.7 % (0.2-1.0); EOSINOPHILS # (AUTO) 1.5 x10^3/uL (0.0-0.2); EOSINOPHILS % (AUTO) 14.6 % (0.9-2.9); LYMPHOCYTES # (AUTO) 2.2 X10^3/uL (1.3-2.9); LYMPHOCYTES % (AUTO) 21.8 % (21.0-51.0); MEAN CORPUSCULAR HEMOGLOBIN 28.9 pg (27.0-34.0); MEAN CORPUSCULAR HGB CONC 33.5 g/dL (33.0-35.0); MEAN CORPUSCULAR VOLUME 86.3 fL (80.0-100.0); MONOCYTES # (AUTO) 0.4 x10^3/uL (0.3-0.8); MONOCYTES % (AUTO) 4.4 % (0.0-13.0); NEUTROPHILS # (AUTO) 5.9 x10^3/uL (2.2-4.8); NEUTROPHILS % (AUTO) 58.5 % (42.0-75.0); PLATELET COUNT 122 X10^3/uL (150.0-450.0); RED BLOOD COUNT 3.13 X10^6/uL (3.5-5.4); RED CELL DISTRIBUTION WIDTH 14.1 % (11.6-16.5); WHITE BLOOD COUNT 10.1 X10^3/uL (3.6-10.0)
[2018-09-02 05:28] LABS: ALANINE AMINOTRANSFERASE 27 Units/L (12-78); ALBUMIN 2.2 g/dL (3.4-5.0); ALKALINE PHOSPHATASE 69 Units/L (46-116); ASPARTATE AMINO TRANSFERASE 18 Units/L (15-37); BLOOD UREA NITROGEN 11 mg/dL (7-18); CARBON DIOXIDE 17.8 mmol/L (21-32); COR CA(FOR HYPOALB) 9.4 mg/dL (8.5-10.1); MAGNESIUM 2.1 mg/dL (1.7-2.9); SODIUM 144 mmol/L (136-145); TOTAL PROTEIN 5.1 g/dL (6.4-8.2); eGFR NON BLACK RACES > 60 (>60)
[2018-09-02 05:33] LABS: CHLORIDE 116 mmol/L (98-107)
[2018-09-02] MEDS: MIRALAX POWDER (1 DOSE 17 G) PO SCH ×3 (09:26→23:42)
[2018-09-02] MEDS: PEPCID TAB 20 MG PO SCH ×2 (09:26→20:51)
[2018-09-02] MEDS: TAB-A-VITE PO SCH (09:27)
[2018-09-02] MEDS: ZESTRIL TAB 5 MG PO SCH ×2 (09:27→20:51)
[2018-09-02] MEDS: LIPITOR TAB 20 MG PO SCH (09:28)
[2018-09-02] MEDS: VITAMIN C PO SCH ×2 (09:28→20:52)
[2018-09-02] MEDS: HEMOCYTE-PLUS PO SCH ×2 (09:28→20:51)
[2018-09-02] MEDS: FLORINEF PO SCH (09:28)
[2018-09-02] MEDS: COLACE SYRUP 100 MG UDC PO SCH ×3 (09:28→23:33)
[2018-09-02] MEDS: MEGACE PO SCH (09:28)
[2018-09-02] MEDS: SNACK - Diabetic Appropriate PO SCH (20:00)
[2018-09-02] MEDS: FORTAZ or TAZICEF VIAL INJ 500 MG in NS 25 ML IV 25 ML IV SCH (20:49)
[2018-09-02] MEDS: NORCO 5/325 MG TAB PO PRN (20:49)
[2018-09-02] MEDS: TRICOR TAB 48 MG PO SCH (20:52)
[2018-09-03] MEDS: D5W 1000 ML IV 1,000 ML IV SCH ×2 (05:00→05:11)
[2018-09-03 05:18] LABS: BASOPHILS # (AUTO) 0.1 X10^3/uL (0.0-0.1); BASOPHILS % (AUTO) 1.2 % (0.2-1.0); EOSINOPHILS # (AUTO) 1.6 x10^3/uL (0.0-0.2); EOSINOPHILS % (AUTO) 16.5 % (0.9-2.9); HEMATOCRIT 26.9 % (36.0-47.0); LYMPHOCYTES # (AUTO) 2.3 X10^3/uL (1.3-2.9); LYMPHOCYTES % (AUTO) 23.8 % (21.0-51.0); MEAN CORPUSCULAR HEMOGLOBIN 28.8 pg (27.0-34.0); MEAN CORPUSCULAR HGB CONC 33.3 g/dL (33.0-35.0); MEAN CORPUSCULAR VOLUME 86.4 fL (80.0-100.0); MEAN PLATELET VOLUME 11.3 fL (7.4-11.0); MONOCYTES # (AUTO) 0.4 x10^3/uL (0.3-0.8); MONOCYTES % (AUTO) 4.5 % (0.0-13.0); NEUTROPHILS # (AUTO) 5.3 x10^3/uL (2.2-4.8); PLATELET COUNT 142 X10^3/uL (150.0-450.0); RED BLOOD COUNT 3.12 X10^6/uL (3.5-5.4); RED CELL DISTRIBUTION WIDTH 14.4 % (11.6-16.5); WHITE BLOOD COUNT 9.8 X10^3/uL (3.6-10.0)
[2018-09-03 05:32] LABS: ALANINE AMINOTRANSFERASE 26 Units/L (12-78); ALBUMIN 2.2 g/dL (3.4-5.0); ALKALINE PHOSPHATASE 70 Units/L (46-116); ASPARTATE AMINO TRANSFERASE 18 Units/L (15-37); BLOOD UREA NITROGEN 11 mg/dL (7-18); CALCIUM 8.3 mg/dL (8.5-10.1); CARBON DIOXIDE 19.3 mmol/L (21-32); CHLORIDE 114 mmol/L (98-107); COR CA(FOR HYPOALB) 9.7 mg/dL (8.5-10.1); CREATININE 0.75 mg/dL (0.55-1.02); SODIUM 144 mmol/L (136-145); TOTAL PROTEIN 5.3 g/dL (6.4-8.2); eGFR NON BLACK RACES > 60 (>60)
[2018-09-03] MEDS: HEMOCYTE-PLUS PO SCH (09:01)
[2018-09-03] MEDS: TAB-A-VITE PO SCH (09:01)
[2018-09-03] MEDS: PEPCID TAB 20 MG PO SCH (09:01)
[2018-09-03] MEDS: FLORINEF PO SCH (09:01)
[2018-09-03] MEDS: ZESTRIL TAB 5 MG PO SCH (09:02)
[2018-09-03] MEDS: COLACE SYRUP 100 MG UDC PO SCH (09:02)
[2018-09-03] MEDS: LIPITOR TAB 20 MG PO SCH (09:02)
[2018-09-03] MEDS: VITAMIN C PO SCH (09:02)
[2018-09-03] MEDS: MEGACE PO SCH (09:02)
[2018-09-03] MEDS: MIRALAX POWDER (1 DOSE 17 G) PO SCH (09:02)
[2018-09-03 15:50] VITALS: BP 162/67
== END 2018-09-03 16:40 | DRG 690 ==
LOC: MED/SURG → OBSVTOIN 17:46
PROVIDERS: ADMIT Internal Medicine; ATTEND Internal Medicine
DX: R62.7 Adult failure to thrive; E78.2 Mixed hyperlipidemia; I25.10 Atherosclerotic heart disease of native coronary artery without angina pectoris; F41.8 Other specified anxiety disorders; R41.82 Altered mental status, unspecified; I10 Essential (primary) hypertension; B96.1 Klebsiella pneumoniae [K. pneumoniae] as the cause of diseases classified elsewhere; D72.828 Other elevated white blood cell count; G30.8 Other Alzheimer's disease; I95.89 Other hypotension; N28.9 Disorder of kidney and ureter, unspecified; I48.91 Unspecified atrial fibrillation; E87.0 Hyperosmolality and hypernatremia; K21.9 Gastro-esophageal reflux disease without esophagitis; E86.0 Dehydration; E11.65 Type 2 diabetes mellitus with hyperglycemia; N30.01 Acute cystitis with hematuria
CPT/HCPCS: 36415; 71010; 71045; 80053; 81001; 82150; 82533; 82550; 82553; 83605; 83690; 83735; 84100; 84132; 84484; 85025; 85610; 85730; 87040; 87086; 87088; 87186; 93005; A4216; A4222; S0179; J0713; J1815; J3475; J3480; J7030; J7050; J7060